=== PATIENT | male | born 1940 | race Caucasian/White ===

== ENCOUNTER 2016-07-20 10:31 | Inpatient (IN) | payer MEDICARE, OTHER ==
[2016-07-20] MEDS ORDERED: Triamcinolone Acetonide 0.1% Crm 15 GM Tube TOP PRN (15:42)
[2016-07-20] MEDS ORDERED: Ondansetron 4 MG Tab.DIS PO PRN (15:49)
--- NOTE | 2016-07-20 16:00 | PCM.HP ---
H&P History of Present Illness - General Date of Service: 07/20/16 Admit Problem/Dx: Admission Diagnosis/Problem Admission Diagnosis/Problem Weakness the patient is a 75-year-old gentleman with a history of diabetes, BPH, hypertension. The patient was diagnosed with lumbar disc disease with radiculopathy on 14 July the patient underwent a L3-S1 spinal fusion surgery in [place]. Date patients a postoperative wound recovery was complicated repeat dose of the balls that responded to lactulose. Had urinary retention. Had confusion with pain medications. He was in acute care and then switched to swing bed. The patient wanted to get closer to her he is home and was transferred to [facility] to continue swing bed recovery. He has moderate pain in the back is improving in the past 2 days. There is no associated lower extremity weakness or numbness. No fever or chills, no shortness of breath, or chest pain Source of Information: Patient, Family (), Old Records (from [place]) Lower Back Pain Score (Numeric/FACES): 5 - Related Data Allergies/Adverse Reactions: Allergies Allergy/AdvReac Type Severity Reaction Status Date / Time aspirin Allergy Rash Verified 04/10/15 22:25 atorvastatin [From Lipitor] Allergy Joint Pain Verified 07/20/16 12:40 bacitracin [From Polysporin] Allergy Cannot Verified 04/10/15 22:25 Remember polymyxin B sulfate Allergy Cannot Verified 04/10/15 22:25 [From Polysporin] Remember salicylates Allergy Rash Verified 07/20/16 12:40 calcium containing cmpd Allergy Cannot Uncoded 03/08/15 04:01 Remember Home Medications: Home Meds Aspirin [Ecotrin] 81 mg PO DAILY 09/19/13 [History] Hydroxychloroquine Sulfate [Plaquenil] 200 mg PO DAILY 09/19/13 [History] Insulin Glarg,Human.Rec.Analog [Lantus Solostar] 22 units SQ BEDTIME 09/19/13 [ History] Niacin 500 mg PO BEDTIME 09/19/13 [History] Simvastatin [Zocor] 20 mg PO BEDTIME 09/19/13 [History] Tamsulosin HCl 0.8 mg PO BEDTIME 09/19/13 [History] traZODone 50 mg PO BEDTIME 09/19/13 [History] Calcitriol [Rocaltrol] 0.25 mcg PO .MO.TUE.Tue03/11/15 [History] Insulin Aspart [Novolog Flexpen] 10 unit SQ ACBREAKFAST 03/11/15 [History] Metoprolol Tartrate 25 mg PO BID 03/11/15 [History] Omeprazole 40 mg PO ACBREAKFAST 03/11/15 [History] hydrOXYzine HCl [Atarax] 25 mg PO BEDTIME 03/11/15 [History] Acetaminophen/Diphenhydramine [Tylenol Pm Ex-Strength Caplet] 1 tab PO BEDTIME PRN 07/20/16 [History] Acetaminophen/HYDROcodone [[place] 325-5 MG] 0.5 tab PO Q6H PRN 07/20/16 [History] Cyclobenzaprine [Flexeril] 10 mg PO BID PRN 07/20/16 [History] Finasteride [Proscar] 5 mg PO DAILY 07/20/16 [History] Insulin Aspart [NovoLOG] 15 units SUBCUT ASDIRECTED 07/20/16 [History] Lactulose 30 ml PO DAILY PRN 07/20/16 [History] Moexipril/Hydrochlorothiazide [Moexipril-HCTZ 15-12.5 MG] 1 tab PO DAILY [History] Sennosides/Docusate Sodium [Senokot-S Tablet] 1 tab PO BID 07/20/16 [History] Triamcinolone Acetonide [Triamcinolone Acetonide 0.1% Crm] 1 applic TOP TID PRN 07/20/16 [History] Past Medical History HEENT History: Reports: Cataract, Impaired Vision Cardiovascular History: Reports: High Cholesterol, Hypertension Respiratory History: Reports: Bronchitis, Recurrent Gastrointestinal History: Reports: Diverticulosis, GERD, Hemorrhoids Genitourinary History: Reports: BPH, Renal Disease Other Genitourinary History: chronic renal insufficiency Musculoskeletal History: Reports: Back Pain, Chronic, Fracture Other Musculoskeletal History: left radius and ulna Psychiatric History: Reports: Addiction Other Psychiatric History: past history of etoh abuse Endocrine/Metabolic History: Reports: Diabetes, Type II Dermatologic History: Reports: Other (See Below) Other Dermatologic History: precancerous lesions to face - Infectious Disease History Infectious Disease History: Reports: Chicken Pox, Measles - Past Surgical History HEENT Surgical History: Reports: Cataract Surgery, Tonsillectomy GI Surgical History: Reports: Appendectomy, Colonoscopy Neurological Surgical History: Reports: Laminectomy, Spinal Fusion Musculoskeletal Surgical History: Reports: Carpal Tunnel, Shoulder Replacement, Other (See Below) Other Musculoskeletal Surgeries/Procedures:: back surgery Social & Family History - Family History Family Medical History: Noncontributory - Tobacco Use Smoking Status *Q: Former Smoker Years of Tobacco use: 52 Packs/Tins Daily: 2 Used Tobacco, but Quit: Yes Month Tobacco Last Used: 10 years ago - Caffeine Use Caffeine Use: Reports: Coffee - Alcohol Use Days Per Week of Alcohol Use: 0 - Recreational Drug Use Recreational Drug Use: No Drug Use in Last 12 Months: No H&P Review of Systems - Review of Systems: Review Of Systems: See Below General: Denies: Fever, Chills, Diaphoresis Pulmonary: Denies: Shortness of Breath Cardiovascular: Denies: Chest Pain Gastrointestinal: Denies: Abdominal Pain Musculoskeletal: Reports: Back Pain. Denies: Neck Pain Psychiatric: Denies: Confusion Exam - Exam Exam: See Below - Vital Signs Vital Signs: Last Vital Signs Temp 36.2 C 07/20/16 14:56 Pulse 103 H 07/20/16 14:56 Resp 20 07/20/16 14:56 BP 137/85 07/20/16 14:56 Pulse Ox 96 07/20/16 14:56 Weight: 84.912 kg - Exam General: Alert, Oriented Neck: Supple, Trachea Midline, 2 Lungs: Clear to Auscultation Cardiovascular: Regular Rate, Regular Rhythm Abdomen: Normal Bowel Sounds, Soft Back Exam: Other (with the back brace) Extremities: No: Edema Neuro Extensive - Mental Status: Alert, Oriented x3, Normal Mood/Affect, Normal Cognition *Q Meaningful Use (ADM) - VTE *Q VTE Criteria *Q: - Stroke *Q Stroke Criteria *Q: - AMI *Q AMI Criteria *Q: Problem List Initiated/Reviewed/Updated: Yes Orders Last 24hrs: Active Orders 24 hr Category Date Time Status Antiembolic Devices [RC] PER UNIT ROUTINE Care 07/20/16 15:53 Ordered Blood Glucose Check, Bedside [RC] QIDACANDBED Care 07/20/16 15:49 Ordered Oxygen Therapy [RC] PRN Care 07/20/16 15:51 Ordered Up With Assistance [RC] ASDIRECTED Care 07/20/16 15:49 Ordered VTE/DVT Education [RC] PER UNIT ROUTINE Care 07/20/16 15:51 Ordered Vital Signs [RC] QSHIFT Care 07/20/16 15:51 Ordered OT Evaluation and Treatment [CONS] Routine Cons 07/20/16 15:49 Ordered PT Evaluation and Treatment [CONS] Routine Cons 07/20/16 15:49 Ordered Consistent Carbohydrate Diet [DIET] Diet 07/20/16 Dinner Ordered Acetaminophen [Tylenol] Med 07/20/16 15:49 Ordered 650 mg PO Q4H PRN Acetaminophen/HYDROcodone [[place] 325-5 MG] Med 07/20/16 15:42 Ordered 0.5 tab PO Q6H PRN Aspirin [Halfprin] Med 07/21/16 09:00 Ordered 81 mg PO DAILY Calcitriol [Rocaltrol] Med 07/20/16 15:45 Ordered 0.25 mcg PO .MO. Cyclobenzaprine [Flexeril] Med 07/20/16 15:42 Ordered 10 mg PO BID PRN Docusate Sodium/Sennosides [Senna Plus] Med 07/20/16 21:00 Ordered 1 tab PO BID Finasteride [Proscar] Med 07/21/16 09:00 Ordered 5 mg PO DAILY Heparin Sodium Med 07/20/16 22:00 Ordered 5,000 units SUBCUT Q8HR Hydroxychloroquine [Plaquenil] Med 07/21/16 09:00 Ordered 200 mg PO DAILY Insulin Aspart [NovoLOG] Med 07/21/16 06:00 Ordered 10 unit SUBCUT ACBREAKFAST Insulin Aspart [NovoLOG] Med 07/20/16 15:45 Ordered 15 unit SUBCUT ASDIRECTED Insulin Aspart [NovoLOG] Med 07/20/16 17:00 Ordered See Protocol SUBCUT TIDAC Insulin Glarg,Human.Rec.Analog [Lantus Solostar] Med 07/20/16 21:00 Ordered 22 units SQ BEDTIME Lactulose [Lactulose] Med 07/20/16 15:42 Ordered 30 ml PO DAILY PRN Metoprolol Tartrate [Lopressor] Med 07/20/16 21:00 Ordered 25 mg PO BID Moexipril/Hydrochlorothiazide [Moexipril-HCTZ 15-12.5 Med 07/21/16 09:00 Ordered MG] 1 tab PO DAILY Niacin [Niacin] Med 07/20/16 21:00 Ordered 500 mg PO BEDTIME Omeprazole Med 07/21/16 06:00 Ordered 40 mg PO ACBREAKFAST Ondansetron [Zofran ODT] Med 07/20/16 15:49 Ordered 4 mg PO Q6H PRN Simvastatin [Zocor] Med 07/20/16 21:00 Ordered 20 mg PO BEDTIME Tamsulosin [Flomax] Med 07/20/16 21:00 Ordered 0.8 mg PO BEDTIME Triamcinolone Acetonide [Triamcinolone Acetonide 0.1% Med 07/20/16 15:42 Ordered Crm] 1 applic TOP TID PRN hydrOXYzine HCl [Atarax] Med 07/20/16 21:00 Ordered 25 mg PO BEDTIME traZODone [traZODone] Med 07/20/16 21:00 Ordered 50 mg PO BEDTIME Antiembolic Hose [OM.PC] Per Unit Routine Oth 07/20/16 15:52 Ordered Resuscitation Status Routine Resus Stat 07/20/16 15:49 Ordered Medication Orders Acetaminophen (Tylenol) 650 mg PO Q4H PRN PRN Reason: Pain (Mild 1-3)/fever Hydrocodone Bitart/Acetaminophen ([place] 325-5 Mg) 0.5 tab PO Q6H PRN PRN Reason: Pain (severe 7-10) Aspirin (Halfprin) 81 mg PO DAILY [facility] Calcitriol (Rocaltrol) 0.25 mcg PO .MO. [facility] Cyclobenzaprine HCl (Flexeril) 10 mg PO BID PRN PRN Reason: Pain Finasteride (Proscar) 5 mg PO DAILY [facility] Heparin Sodium (Porcine) (Heparin Sodium) 5,000 units SUBCUT Q8HR [facility] Hydroxychloroquine Sulfate (Plaquenil) 200 mg PO DAILY [facility] Hydroxyzine HCl (Atarax) 25 mg PO BEDTIME [facility] Insulin Aspart (Novolog) 10 unit SUBCUT ACBREAKFAST [facility] Insulin Aspart (Novolog) 15 unit SUBCUT ASDIRECTED [facility] Insulin Aspart (Novolog) 0 unit SUBCUT TIDAC [facility] PRN Reason: Protocol Metoprolol Tartrate (Lopressor) 25 mg PO BID [facility] Non-Formulary Medication (Insulin Glarg,Human.Rec.Analog [Lantus Solostar]) 22 units SQ BEDTIME [facility] Non-Formulary Medication (Lactulose [Lactulose]) 30 ml PO DAILY PRN PRN Reason: Constipation Non-Formulary Medication (Moexipril/Hydrochlorothiazide [Moexipril-Hctz 15-12.5 Mg]) 1 tab PO DAILY [facility] Non-Formulary Medication (Niacin [Niacin]) 500 mg PO BEDTIME [facility] Non-Formulary Medication (Simvastatin [Zocor]) 20 mg PO BEDTIME [facility] Non-Formulary Medication (Trazodone [Trazodone]) 50 mg PO BEDTIME [facility] Omeprazole (Omeprazole) 40 mg PO ACBREAKFAST [facility] Ondansetron HCl (Zofran Odt) 4 mg PO Q6H PRN PRN Reason: nausea, able to take PO Senna/Docusate Sodium (Senna Plus) 1 tab PO BID [facility] Tamsulosin HCl (Flomax) 0.8 mg PO BEDTIME [facility] Triamcinolone Acetonide (Triamcinolone Acetonide 0.1% Crm) gm TOP TID PRN PRN Reason: Itching Assessment/Plan Comment:: status post l3-S1 vertebral fusion surgery on 14 July Will have physical therapy and occupational therapy follow the patient DVT prophylaxis Will use subcutaneous heparin Diabetes Continue Lantus and short-acting insulin Use supplemental insulin as needed Hypertension Continue LING inhibitor and hydrochlorothiazide Follow for constipation, encephalopathy from narcotics. Will obtain basic metabolic panel and CBC as baseline tomorrow
[2016-07-20] MEDS ORDERED: Insulin Aspart 100 Units/ML 3 ML Pen SUBCUT SCH (17:00)
[2016-07-20] MEDS: Insulin Aspart 100 Units/ML 3 ML Pen SUBCUT SCH (17:15)
[2016-07-20] MEDS: Acetaminophen 325 MG Tab PO PRN (18:03)
[2016-07-20] MEDS: Tamsulosin 0.4 MG Cap.ER PO SCH (22:02)
[2016-07-20] MEDS: hydrOXYzine HCl 25 MG Tab PO SCH (22:02)
[2016-07-20] MEDS: INSULIN GLARG HUMAN REC ANALOG SUBCUT SCH (22:03)
[2016-07-20] MEDS: traZODone 50 MG Tab PO SCH (22:05)
[2016-07-20] MEDS: Simvastatin 10 MG Tab PO SCH (22:06)
[2016-07-20] MEDS: Heparin Sodium 5,000 Units/ML Vial SUBCUT SCH (22:07)
[2016-07-20] MEDS: Cyclobenzaprine 10 MG Tab PO PRN (22:07)
[2016-07-20] MEDS: Metoprolol Tartrate 25 MG Tab PO SCH (23:10)
[2016-07-20] MEDS: Niacin 500 MG Tab.ER PO SCH (23:11)
[2016-07-21] MEDS: Acetaminophen 325 MG Tab PO PRN ×3 (00:55→21:46)
[2016-07-21] MEDS: Acetaminophen/HYDROcodone 325-5 MG Tab PO PRN (03:00)
[2016-07-21] MEDS: Omeprazole 20 MG Cap.CR PO SCH (05:27)
[2016-07-21] MEDS: Heparin Sodium 5,000 Units/ML Vial SUBCUT SCH ×3 (05:27→21:45)
[2016-07-21] MEDS: Insulin Aspart 100 Units/ML 3 ML Pen SUBCUT SCH ×6 (08:56→18:17)
[2016-07-21] MEDS ORDERED: HYDROCHLOROTHIAZIDE PO SCH (09:00)
[2016-07-21] MEDS: Finasteride 5 MG Tab PO SCH (09:00)
[2016-07-21] MEDS: Calcitriol 0.25 MCG Cap PO SCH (09:00)
[2016-07-21] MEDS: Hydroxychloroquine 200 MG Tab PO SCH (09:00)
[2016-07-21] MEDS: Aspirin 81 MG Tab.EC PO SCH (09:00)
[2016-07-21] MEDS ORDERED: MOEXIPRIL PO SCH (09:00)
[2016-07-21] MEDS: Metoprolol Tartrate 25 MG Tab PO SCH ×2 (09:00→21:41)
[2016-07-21] MEDS ORDERED: [UNRECOGNIZED DRUG - OTHER] PO SCH (09:00)
[2016-07-21] MEDS: hydrOXYzine HCl 25 MG Tab PO SCH (21:41)
[2016-07-21] MEDS: Tamsulosin 0.4 MG Cap.ER PO SCH (21:41)
[2016-07-21] MEDS: traZODone 50 MG Tab PO SCH (21:42)
[2016-07-21] MEDS: Simvastatin 10 MG Tab PO SCH (21:43)
[2016-07-21] MEDS: Niacin 500 MG Tab.ER PO SCH (21:44)
[2016-07-21] MEDS: Lactulose Soln 10 GM/15 ML 30 ML UD Cup PO PRN (21:45)
[2016-07-21] MEDS: Cyclobenzaprine 10 MG Tab PO PRN (21:46)
[2016-07-21] MEDS: INSULIN GLARG HUMAN REC ANALOG SUBCUT SCH (22:04)
[2016-07-22] MEDS: Acetaminophen/HYDROcodone 325-5 MG Tab PO PRN ×3 (00:22→20:08)
[2016-07-22] MEDS: Acetaminophen 325 MG Tab PO PRN ×2 (02:14→21:48)
[2016-07-22] MEDS: Omeprazole 20 MG Cap.CR PO SCH (05:12)
[2016-07-22] MEDS: Heparin Sodium 5,000 Units/ML Vial SUBCUT SCH ×3 (05:12→21:49)
[2016-07-22] MEDS: Metoprolol Tartrate 25 MG Tab PO SCH ×2 (08:09→20:04)
[2016-07-22] MEDS: Finasteride 5 MG Tab PO SCH (08:09)
[2016-07-22] MEDS: Aspirin 81 MG Tab.EC PO SCH (08:09)
[2016-07-22] MEDS: Hydroxychloroquine 200 MG Tab PO SCH (08:09)
[2016-07-22] MEDS: Insulin Aspart 100 Units/ML 3 ML Pen SUBCUT SCH ×7 (08:13→19:01)
[2016-07-22] MEDS: hydrOXYzine HCl 25 MG Tab PO SCH (20:02)
[2016-07-22] MEDS: Simvastatin 10 MG Tab PO SCH (20:03)
[2016-07-22] MEDS: Tamsulosin 0.4 MG Cap.ER PO SCH (20:03)
[2016-07-22] MEDS: traZODone 50 MG Tab PO SCH (20:03)
[2016-07-22] MEDS: Niacin 500 MG Tab.ER PO SCH (20:21)
[2016-07-22] MEDS: INSULIN GLARG HUMAN REC ANALOG SUBCUT SCH (21:53)
[2016-07-22] MEDS: Cyclobenzaprine 10 MG Tab PO PRN (23:57)
[2016-07-23] MEDS: Acetaminophen/HYDROcodone 325-5 MG Tab PO PRN ×4 (02:09→18:33)
[2016-07-23] MEDS: Acetaminophen 325 MG Tab PO PRN ×4 (05:45→22:40)
[2016-07-23] MEDS: Heparin Sodium 5,000 Units/ML Vial SUBCUT SCH ×3 (05:48→21:35)
[2016-07-23] MEDS: Omeprazole 20 MG Cap.CR PO SCH (05:48)
[2016-07-23] MEDS: Insulin Aspart 100 Units/ML 3 ML Pen SUBCUT SCH ×3 (08:32→17:25)
[2016-07-23] MEDS: Metoprolol Tartrate 25 MG Tab PO SCH ×2 (09:24→20:21)
[2016-07-23] MEDS: Cyclobenzaprine 10 MG Tab PO PRN ×2 (09:24→21:39)
[2016-07-23] MEDS: Hydroxychloroquine 200 MG Tab PO SCH (09:24)
[2016-07-23] MEDS: Calcitriol 0.25 MCG Cap PO SCH (09:24)
[2016-07-23] MEDS: Finasteride 5 MG Tab PO SCH (09:24)
[2016-07-23] MEDS: Aspirin 81 MG Tab.EC PO SCH (09:25)
[2016-07-23] MEDS ORDERED: Acetaminophen/HYDROcodone 325-5 MG Tab PO PRN (16:32)
[2016-07-23] MEDS: traZODone 50 MG Tab PO SCH (20:21)
[2016-07-23] MEDS: Simvastatin 10 MG Tab PO SCH (20:21)
[2016-07-23] MEDS: Tamsulosin 0.4 MG Cap.ER PO SCH (20:21)
[2016-07-23] MEDS: Niacin 500 MG Tab.ER PO SCH (20:22)
[2016-07-23] MEDS: hydrOXYzine HCl 25 MG Tab PO SCH (20:23)
[2016-07-23] MEDS: TYLENOL PM PO PRN (20:23)
[2016-07-23] MEDS: Lactulose Soln 10 GM/15 ML 30 ML UD Cup PO PRN (20:23)
[2016-07-23] MEDS: INSULIN GLARG HUMAN REC ANALOG SUBCUT SCH (21:34)
[2016-07-24] MEDS: Acetaminophen/HYDROcodone 325-5 MG Tab PO PRN ×2 (00:36→06:43)
[2016-07-24] MEDS: Omeprazole 20 MG Cap.CR PO SCH (06:07)
[2016-07-24] MEDS: Heparin Sodium 5,000 Units/ML Vial SUBCUT SCH ×3 (06:07→22:34)
[2016-07-24] MEDS: Metoprolol Tartrate 25 MG Tab PO SCH ×2 (08:09→20:43)
[2016-07-24] MEDS: Finasteride 5 MG Tab PO SCH (08:09)
[2016-07-24] MEDS: Insulin Aspart 100 Units/ML 3 ML Pen SUBCUT SCH ×5 (08:09→17:27)
[2016-07-24] MEDS: Aspirin 81 MG Tab.EC PO SCH (08:09)
[2016-07-24] MEDS: Hydroxychloroquine 200 MG Tab PO SCH (08:09)
[2016-07-24] MEDS: Lidocaine 5% 700 MG Patch TOP SCH (09:20)
[2016-07-24] MEDS: Tamsulosin 0.4 MG Cap.ER PO SCH (20:42)
[2016-07-24] MEDS: hydrOXYzine HCl 25 MG Tab PO SCH (20:42)
[2016-07-24] MEDS: Niacin 500 MG Tab.ER PO SCH (20:44)
[2016-07-24] MEDS: traZODone 50 MG Tab PO SCH (20:45)
[2016-07-24] MEDS: Simvastatin 10 MG Tab PO SCH (20:45)
[2016-07-24] MEDS: Cyclobenzaprine 10 MG Tab PO PRN (20:46)
[2016-07-24] MEDS: TYLENOL PM PO PRN (20:46)
[2016-07-24] MEDS: INSULIN GLARG HUMAN REC ANALOG SUBCUT SCH (20:48)
[2016-07-24] MEDS: Menthol/Methyl Salicylate 85 GM Tube TOP PRN (22:34)
[2016-07-25] MEDS: Acetaminophen 325 MG Tab PO PRN ×4 (04:18→21:59)
[2016-07-25] MEDS: Lactulose Soln 10 GM/15 ML 30 ML UD Cup PO PRN (05:35)
[2016-07-25] MEDS: Omeprazole 20 MG Cap.CR PO SCH (05:35)
[2016-07-25] MEDS: Heparin Sodium 5,000 Units/ML Vial SUBCUT SCH ×3 (05:35→21:53)
[2016-07-25] MEDS ORDERED: Bisacodyl 10 MG Supp RECTAL ONE (08:07)
[2016-07-25] MEDS: Insulin Aspart 100 Units/ML 3 ML Pen SUBCUT SCH ×6 (08:58→17:51)
[2016-07-25] MEDS: Aspirin 81 MG Tab.EC PO SCH (09:01)
[2016-07-25] MEDS: Finasteride 5 MG Tab PO SCH (09:01)
[2016-07-25] MEDS: Lidocaine 5% 700 MG Patch TOP SCH (09:02)
[2016-07-25] MEDS: Metoprolol Tartrate 25 MG Tab PO SCH ×2 (09:02→21:47)
[2016-07-25] MEDS: Hydroxychloroquine 200 MG Tab PO SCH (09:03)
[2016-07-25] MEDS: Cyclobenzaprine 10 MG Tab PO PRN ×2 (12:22→21:59)
[2016-07-25] MEDS: Tamsulosin 0.4 MG Cap.ER PO SCH (21:46)
[2016-07-25] MEDS: traZODone 50 MG Tab PO SCH (21:47)
[2016-07-25] MEDS: Simvastatin 10 MG Tab PO SCH (21:47)
[2016-07-25] MEDS: hydrOXYzine HCl 25 MG Tab PO SCH (21:47)
[2016-07-25] MEDS: Niacin 500 MG Tab.ER PO SCH (21:50)
[2016-07-25] MEDS: INSULIN GLARG HUMAN REC ANALOG SUBCUT SCH (21:50)
[2016-07-25] MEDS: Menthol/Methyl Salicylate 85 GM Tube TOP PRN (22:02)
[2016-07-26] MEDS: TYLENOL PM PO PRN ×2 (00:59→21:43)
[2016-07-26] MEDS: Acetaminophen 325 MG Tab PO PRN (05:09)
[2016-07-26] MEDS: Omeprazole 20 MG Cap.CR PO SCH (05:09)
[2016-07-26] MEDS: Heparin Sodium 5,000 Units/ML Vial SUBCUT SCH ×3 (05:11→21:32)
--- NOTE | 2016-07-26 07:14 | PN ---
DATE: 07/25/2016 SUBJECTIVE: The patient was confused last night and the patient also mentioned that he has not had any bowel movement for the last 4 days. But so far, the patient has been doing well with pain management and the Lidoderm patch seems to be helping and he did not get any hydrocodone yesterday. Otherwise, no other concerns. OBJECTIVE: Vital Signs: Blood pressure is 142/70, pulse is 105, respiration of 20, and temperature of 98.2. Heart: Regular rate and rhythm. Normal S1 and S2. No gallops. No rubs. Lungs: Equal bilaterally. No crackles. No wheezing. Abdomen: Soft and nontender. Extremities: Negative for any significant pedal edema. No calf tenderness. MEDICATIONS: Reviewed. PLAN: We will give him Dulcolax suppository today x1 and if he does not have any bowel movement, then, we will give soapsuds enema. Otherwise, we will continue the rest of his management and if he has a good bowel movement, we can even try him without a Andrews catheter and see if he can urinate on his own. [facility] /[id number]
[2016-07-26] MEDS: Insulin Aspart 100 Units/ML 3 ML Pen SUBCUT SCH ×6 (08:36→17:35)
[2016-07-26] MEDS: Aspirin 81 MG Tab.EC PO SCH (10:04)
[2016-07-26] MEDS: Lidocaine 5% 700 MG Patch TOP SCH (10:04)
[2016-07-26] MEDS: Metoprolol Tartrate 25 MG Tab PO SCH ×2 (10:05→21:49)
[2016-07-26] MEDS: Finasteride 5 MG Tab PO SCH (10:06)
[2016-07-26] MEDS: Hydroxychloroquine 200 MG Tab PO SCH (10:06)
[2016-07-26] MEDS: Calcitriol 0.25 MCG Cap PO SCH (10:06)
[2016-07-26] MEDS: INSULIN GLARG HUMAN REC ANALOG SUBCUT SCH (21:32)
[2016-07-26] MEDS: Menthol/Methyl Salicylate 85 GM Tube TOP PRN (21:34)
[2016-07-26] MEDS: hydrOXYzine HCl 25 MG Tab PO SCH (21:44)
[2016-07-26] MEDS: Niacin 500 MG Tab.ER PO SCH (21:45)
[2016-07-26] MEDS: traZODone 50 MG Tab PO SCH (21:46)
[2016-07-26] MEDS: Tamsulosin 0.4 MG Cap.ER PO SCH (21:46)
[2016-07-26] MEDS: Simvastatin 10 MG Tab PO SCH (21:47)
[2016-07-26] MEDS: Cyclobenzaprine 10 MG Tab PO PRN (21:49)
[2016-07-27] MEDS: Acetaminophen 325 MG Tab PO PRN (03:10)
[2016-07-27] MEDS: Heparin Sodium 5,000 Units/ML Vial SUBCUT SCH ×3 (05:39→21:38)
[2016-07-27] MEDS: Omeprazole 20 MG Cap.CR PO SCH (05:39)
[2016-07-27] MEDS: Insulin Aspart 100 Units/ML 3 ML Pen SUBCUT SCH ×6 (08:16→17:55)
[2016-07-27] MEDS: Aspirin 81 MG Tab.EC PO SCH (08:19)
[2016-07-27] MEDS: Metoprolol Tartrate 25 MG Tab PO SCH ×2 (08:20→20:29)
[2016-07-27] MEDS: Hydroxychloroquine 200 MG Tab PO SCH (08:20)
[2016-07-27] MEDS: Lidocaine 5% 700 MG Patch TOP SCH (08:21)
[2016-07-27] MEDS: Finasteride 5 MG Tab PO SCH (08:21)
[2016-07-27] MEDS: Lactulose Soln 10 GM/15 ML 30 ML UD Cup PO PRN (08:34)
[2016-07-27] MEDS ORDERED: Zolpidem 5 MG Tab PO PRN (15:28)
[2016-07-27] MEDS ORDERED: LORazepam 0.5 MG Tab PO PRN (15:34)
[2016-07-27] MEDS: Tamsulosin 0.4 MG Cap.ER PO SCH (20:28)
[2016-07-27] MEDS: hydrOXYzine HCl 25 MG Tab PO SCH (20:28)
[2016-07-27] MEDS: Niacin 500 MG Tab.ER PO SCH (20:30)
[2016-07-27] MEDS: traZODone 50 MG Tab PO SCH (20:33)
[2016-07-27] MEDS: Simvastatin 10 MG Tab PO SCH (20:33)
[2016-07-27] MEDS ORDERED: Insulin Detemir 100 Units/ML 3 ML Pen SUBCUT ONE (21:15)
[2016-07-27] MEDS: INSULIN GLARG HUMAN REC ANALOG SUBCUT SCH (21:36)
[2016-07-28] MEDS: Heparin Sodium 5,000 Units/ML Vial SUBCUT SCH ×3 (05:53→21:43)
[2016-07-28] MEDS: Omeprazole 20 MG Cap.CR PO SCH (05:53)
[2016-07-28] MEDS: Insulin Aspart 100 Units/ML 3 ML Pen SUBCUT SCH ×6 (08:16→17:29)
[2016-07-28] MEDS: Aspirin 81 MG Tab.EC PO SCH (08:19)
[2016-07-28] MEDS: Finasteride 5 MG Tab PO SCH (08:19)
[2016-07-28] MEDS: Hydroxychloroquine 200 MG Tab PO SCH (08:20)
[2016-07-28] MEDS: Calcitriol 0.25 MCG Cap PO SCH (08:20)
[2016-07-28] MEDS: Metoprolol Tartrate 25 MG Tab PO SCH ×2 (08:21→20:49)
[2016-07-28] MEDS: Lidocaine 5% 700 MG Patch TOP SCH (08:21)
[2016-07-28] MEDS ORDERED: LORazepam 1 MG Tab PO PRN (09:16)
[2016-07-28] MEDS: Acetaminophen 325 MG Tab PO PRN ×2 (10:44→20:48)
--- NOTE | 2016-07-28 11:11 | PCM.PN ---
- General Info Date of Service: 07/28/16 Subjective Update: patient is a 75-year-old male was admitted for continued physical therapy after back surgery. Has had urinary retention and admission. They have tried removing the Andrews catheter however, he was noted to have her on 500-600 mL of urine retained. Hands Andrews catheter was inserted again. Yesterday, urine for catheter was noted to be very dark and a urinalysis was done which showed more than 100 RBCs. Unclear if patient accidentally pulled the catheter. - Patient Data Vitals - most recent: Last Vital Signs Temp 36.9 C 07/28/16 08:00 Pulse 109 H 07/28/16 08:21 Resp 24 H 07/28/16 08:00 BP 136/63 07/28/16 08:21 Pulse Ox 109 H 07/28/16 08:00 Weight - most recent: 84.912 kg I&O - last 24 hours: Intake & Output 07/27/16 07/28/16 07/28/16 22:59 06:59 14:59 Intake Total 200 100 Output Total 500 550 Balance -300 -450 Lab Results last 24 hrs: Laboratory Results - last 24 hr 07/27/16 07/27/16 07/27/16 Range/Units 11:23 13:35 16:53 POC Glucose 336 H 199 H (83-110) mg/dl Urine Color Itzel (YELLOW) Urine Appearance Turbid (CLEAR) Urine pH 6.0 (5.0-9.0) Ur Specific [place] 1.020 (1.005-1.030) Urine Protein 100 H (NEGATIVE) Urine Glucose (UA) 100 H (NEGATIVE) Urine Ketones Trace H (NEGATIVE) Urine Occult Blood Large H (NEGATIVE) Urine Nitrite Negative (NEGATIVE) Urine Bilirubin Small H (NEGATIVE) Urine Urobilinogen 0.2 (0.2-1.0) mg/dL Ur Leukocyte Esterase Trace H (NEGATIVE) Urine RBC >100 H /HPF Urine WBC 10-20 H (0-5/HPF) /HPF Ur Epithelial Cells Rare /HPF Amorphous Sediment Few (0/HPF) /HPF Urine Bacteria Rare (0-FEW/HPF) /HPF Urine Mucus Rare /LPF 07/27/16 07/28/16 Range/Units 20:59 07:02 POC Glucose 215 H 240 H (83-110) mg/dl Urine Color (YELLOW) Urine Appearance (CLEAR) Urine pH (5.0-9.0) Ur Specific [place] (1.005-1.030) Urine Protein (NEGATIVE) Urine Glucose (UA) (NEGATIVE) Urine Ketones (NEGATIVE) Urine Occult Blood (NEGATIVE) Urine Nitrite (NEGATIVE) Urine Bilirubin (NEGATIVE) Urine Urobilinogen (0.2-1.0) mg/dL Ur Leukocyte Esterase (NEGATIVE) Urine RBC /HPF Urine WBC (0-5/HPF) /HPF Ur Epithelial Cells /HPF Amorphous Sediment (0/HPF) /HPF Urine Bacteria (0-FEW/HPF) /HPF Urine Mucus /LPF Med Orders - Current: Current Medications Acetaminophen (Tylenol) 650 mg PO Q4H PRN PRN Reason: Pain (Mild 1-3)/fever Last Admin: 07/28/16 10:44 Dose: 650 mg Aspirin (Halfprin) 81 mg PO DAILY [facility] Last Admin: 07/28/16 08:19 Dose: 81 mg Calcitriol (Rocaltrol) 0.25 mcg PO MoWeFr@0900 [facility] Last Admin: 07/28/16 08:20 Dose: 0.25 mcg Cyclobenzaprine HCl (Flexeril) 10 mg PO BID PRN PRN Reason: Pain Last Admin: 07/26/16 21:49 Dose: 10 mg Finasteride (Proscar) 5 mg PO DAILY [facility] Last Admin: 07/28/16 08:19 Dose: 5 mg Heparin Sodium (Porcine) (Heparin Sodium) 5,000 units SUBCUT Q8HR [facility] Last Admin: 07/28/16 05:53 Dose: 5,000 units Hydroxychloroquine Sulfate (Plaquenil) 200 mg PO DAILY [facility] Last Admin: 07/28/16 08:20 Dose: 200 mg Insulin Aspart (Novolog) 5 unit SUBCUT TIDMEALS [facility] Last Admin: 07/28/16 08:16 Dose: 5 unit Insulin Aspart (Novolog) 0 unit SUBCUT TIDMEALS [facility] PRN Reason: Protocol Last Admin: 07/28/16 08:18 Dose: 4 unit Lactulose (Cephulac) 20 gm PO DAILY PRN PRN Reason: Constipation Last Admin: 07/27/16 08:34 Dose: 20 gm Lidocaine (Lidoderm 5%) 700 mg TOP DAILY@0900 [facility] Last Admin: 07/28/16 08:21 Dose: 700 mg Lorazepam (Ativan) 1 mg PO BEDTIME PRN PRN Reason: Insomnia Methyl Salicylate (Icy Hot Cream) 0 gm TOP Q3H PRN PRN Reason: Pain Last Admin: 07/26/16 21:34 Dose: 1 applic Metoprolol Tartrate (Lopressor) 25 mg PO BID [facility] Last Admin: 07/28/16 08:21 Dose: 25 mg Miscellaneous Information (Remove Patch) 1 ea TRDERM DAILY@2100 [facility] Last Admin: 07/27/16 20:32 Dose: Not Given Niacin (Niaspan) 500 mg PO BEDTIME [facility] Last Admin: 07/27/16 20:30 Dose: 500 mg Omeprazole (Omeprazole) 40 mg PO ACBREAKFAST [facility] Last Admin: 07/28/16 05:53 Dose: 40 mg Ondansetron HCl (Zofran Odt) 4 mg PO Q6H PRN PRN Reason: nausea, able to take PO Insulin Glarg,Human. Rec.Analog [Lantus Solostar]Pt's Own Med 0 each SUBCUT BEDTIME [facility] Last Admin: 07/27/16 21:36 Dose: 19 each Tylenol Pm ( Acetaminophen 500/Diphenhydramine 25) Own Med 0 each PO BEDTIME PRN PRN Reason: Sleep Last Admin: 07/26/16 21:43 Dose: 1 each Senna/Docusate Sodium (Senna Plus) 1 tab PO BID [facility] Last Admin: 07/28/16 08:20 Dose: 1 tab Simvastatin (Zocor) 20 mg PO BEDTIME [facility] Last Admin: 07/27/16 20:33 Dose: 20 mg Tamsulosin HCl (Flomax) 0.8 mg PO BEDTIME [facility] Last Admin: 07/27/16 20:28 Dose: 0.8 mg Trazodone HCl (Trazodone) 50 mg PO BEDTIME [facility] Last Admin: 07/27/16 20:33 Dose: 50 mg Triamcinolone Acetonide (Triamcinolone Acetonide 0.1% Crm) 0 gm TOP TID PRN PRN Reason: Itching Discontinued Medications Hydrocodone Bitart/Acetaminophen ([place] 325-5 Mg) 0.5 tab PO Q6H PRN PRN Reason: Pain (severe 7-10) Last Admin: 07/23/16 02:09 Dose: 0.5 tab Hydrocodone Bitart/Acetaminophen ([place] 325-5 Mg) 1 tab PO Q6H PRN PRN Reason: Pain (severe 7-10) Last Admin: 07/24/16 06:43 Dose: 1 tab Hydrocodone Bitart/Acetaminophen ([place] 325-5 Mg) 0.5 tab PO Q6H PRN PRN Reason: Pain (moderate 4-6) Bisacodyl (Dulcolax) 10 mg RECTAL ONETIME ONE Stop: 07/25/16 08:08 Last Admin: 07/25/16 08:57 Dose: 10 mg Hydroxyzine HCl (Atarax) 25 mg PO BEDTIME [facility] Last Admin: 07/27/16 20:28 Dose: 25 mg Insulin Aspart (Novolog) 10 unit SUBCUT DAILY@0800 [facility] Last Admin: 07/22/16 08:14 Dose: 10 units Insulin Aspart (Novolog) 15 unit SUBCUT 1200,1800 [facility] Last Admin: 07/22/16 18:43 Dose: Not Given Insulin Aspart (Novolog) 0 unit SUBCUT TIDAC [facility] PRN Reason: Protocol Last Admin: 07/20/16 17:14 Dose: 6 units Insulin Aspart (Novolog) 0 unit SUBCUT TIDMEALS [facility] PRN Reason: Protocol Last Admin: 07/22/16 18:42 Dose: Not Given Insulin Aspart (Novolog) 0 unit SUBCUT TIDMEALS [facility] PRN Reason: Protocol Last Admin: 07/24/16 08:09 Dose: 9 units Insulin Detemir (Levemir) 3 unit SUBCUT ONETIME ONE Stop: 07/27/16 21:16 Last Admin: 07/27/16 21:37 Dose: 3 units Lorazepam (Ativan) 0.5 mg PO BEDTIME PRN PRN Reason: Insomnia Last Admin: 07/27/16 20:35 Dose: 0.5 mg Zolpidem Tartrate (Ambien) 5 mg PO BEDTIME PRN PRN Reason: Insomnia - Exam General: alert, oriented Lungs: Normal respiratory effort Abdomen: soft, no tenderness Extremities: no edema Neurological: other (patient able to lift and maintain the right leg against gravity; slight difficulty lifting the left leg against gravity due to pain; ambulated around the room with the assistance of a walker) - Problem List Review Problem List Initiated/Reviewed/Updated: Yes - My Orders Last 24 Hours: My Active Orders 07/28/16 08:24 Abdomen Pelvis wo Cont [CT] Routine Upperco Sutures Removal [RC] Click To Edit 07/28/16 09:16 LORazepam [Ativan] 1 mg PO BEDTIME PRN - Plan Plan:: Status post l3-S1 vertebral fusion surgery on 14 July - continue physical therapy - has been having left leg pain, has been on Tylenol extra Rosalind which is working for him - Continue Flexeril - avoid narcotic urinary retention - has tried removing the Andrews catheter however patient still retained 500- 600 cc of urine - Patient has been on Flomax and finasteride chronically - Urinalysis checked showed hematuria; CAT scan done Will followup - Recommend urology consultation Insomnia - Patient has been on trazodone and Benadryl however since admission during his stay in the hospital, is not getting good sleep - He was started on Ativan 0.5 mg last night with no reported intolerance; consider increasing this to 1 mg Diabetes - Continue Lantus and short-acting insulin - Use supplemental insulin as needed Hypertension - Continue LING inhibitor and hydrochlorothiazide Episodes of constipation, resolved
[2016-07-28] MEDS: Lactulose Soln 10 GM/15 ML 30 ML UD Cup PO PRN (11:34)
--- NOTE | 2016-07-28 13:53 | CT ---
CLINICAL HISTORY: 75-year-old hypertensive 187 pound diabetic male who has had previous back surgery , appendectomy and colon surgery presents now with "urinary retention". SCAN TECHNIQUE: Volume acquisition of data from an unenhanced CT scan of the abdomen and pelvis obta ined with the patient lying supine on the Siemens multislice CT scanner [place], [place]. All data archived in the PAC system for storage, reformatting and study. INTERPRETATION: 1. Indwelling urinary catheter this patient with small volume, symmetrically distended, urinary blad aracelis (large volume of air in the bladder dome where the tip of the catheter lies; Andrews balloon resti ng on the bladder trigone). Midline prostate gland not particularly enlarged. No pelvic lymphadenopathy. 2. Symmetric normal reniform configuration, small kidneys. No renal cortical mass (cystic or solid), signs of nephrolithiasis or obstructive uropathy upper tracts (isolated vascular calcification hilu s of the left kidney). 3. Densely calcified "cast" normal caliber aortoiliac vessels. No aneurysm or dissection. 4. Diverticulosis descending left and sigmoid colon. No associated inflammatory changes. 5. Gallbladder, liver, stomach, spleen, pancreas and adrenal glands unremarkable. 6. Evidence of extensive orthopedic fusion (posteriorly) from L1-S1 levels of the spine (normal heig ht and alignment bodies). 7. Lung bases clear. CONCLUSION: Indwelling Andrews catheter urinary bladder. No sign of obstructive uropathy upper tracts. Back surgery. Diverticulosis left colon. Appendectomy.
[2016-07-28] MEDS ORDERED: Sodium Chloride 0.9% 1,000 ML IV ONE (17:45)
[2016-07-28] MEDS ORDERED: Sodium Chloride 0.9% 10 ML Syringe FLUSH PRN (18:03)
[2016-07-28] MEDS: Tamsulosin 0.4 MG Cap.ER PO SCH (20:49)
[2016-07-28] MEDS: Simvastatin 10 MG Tab PO SCH (20:49)
[2016-07-28] MEDS: Niacin 500 MG Tab.ER PO SCH (20:50)
[2016-07-28] MEDS: traZODone 50 MG Tab PO SCH (20:50)
[2016-07-28] MEDS ORDERED: Zolpidem 5 MG Tab PO PRN (20:53)
[2016-07-28] MEDS: INSULIN GLARG HUMAN REC ANALOG SUBCUT SCH (20:57)
[2016-07-29] MEDS ORDERED: LORazepam 2 MG/ML Syringe IM ONE (01:19)
[2016-07-29] MEDS: Cyclobenzaprine 10 MG Tab PO PRN (01:33)
[2016-07-29] MEDS ORDERED: Haloperidol Lactate 5 MG/ML SDV IM ONE (01:56)
[2016-07-29] MEDS ORDERED: OLANZapine 5 MG in Water For Injection, Sterile 2.1 ML IM ONE (03:28)
[2016-07-29] MEDS ORDERED: OLANZapine 10 MG Vial IM ONE (03:45)
[2016-07-29] MEDS: Omeprazole 20 MG Cap.CR PO SCH (07:24)
[2016-07-29] MEDS: Heparin Sodium 5,000 Units/ML Vial SUBCUT SCH ×3 (07:26→22:02)
[2016-07-29] MEDS: Insulin Aspart 100 Units/ML 3 ML Pen SUBCUT SCH ×6 (08:21→17:39)
[2016-07-29] MEDS: Lidocaine 5% 700 MG Patch TOP SCH (09:46)
[2016-07-29] MEDS: Aspirin 81 MG Tab.EC PO SCH (09:46)
[2016-07-29] MEDS: Metoprolol Tartrate 25 MG Tab PO SCH ×2 (09:47→20:44)
[2016-07-29] MEDS: Hydroxychloroquine 200 MG Tab PO SCH (09:48)
[2016-07-29] MEDS: Finasteride 5 MG Tab PO SCH (09:49)
[2016-07-29] MEDS ORDERED: Benzocaine/Docusate Sodium 20-283 MG/5 ML Enema RECTAL PRN (12:03)
--- NOTE | 2016-07-29 12:24 | PCM.PN ---
- General Info Date of Service: 07/29/16 Admission Dx/Problem (Free Text): Admission Diagnosis/Problem Admission Diagnosis/Problem Weakness the patient is a 75-year-old gentleman with a history of diabetes, BPH, hypertension. The patient was diagnosed with lumbar disc disease with radiculopathy on 14 July the patient underwent a L3-S1 spinal fusion surgery in [place]. Date patients a postoperative wound recovery was complicated repeat dose of the balls that responded to lactulose. Had urinary retention. Had confusion with pain medications. He was in acute care and then switched to swing bed. The patient wanted to get closer to her he is home and was transferred to [facility] to continue swing bed recovery. Subjective Update: last night the patient the was unable to sleep. Had episodes of restlessness, confusion, was pulling on his catheter. 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 - Review of Systems General: Denies: Fever Pulmonary: Denies: shortness of breath Cardiovascular: Denies: Chest Pain Neurological: Reports: Confusion (last night, improved during the day) - Patient Data Vitals - most recent: Last Vital Signs Temp 37.1 C 07/29/16 07:19 Pulse 118 H 07/29/16 09:47 Resp 20 07/29/16 07:19 BP 115/63 07/29/16 09:47 Pulse Ox 97 07/29/16 07:19 Weight - most recent: 84.912 kg I&O - last 24 hours: Intake & Output 07/28/16 07/29/16 07/29/16 22:59 06:59 14:59 Intake Total 1573 200 Output Total 758 907 2719 Balance [phone] -[phone] Lab Results last 24 hrs: Laboratory Results - last 24 hr 07/28/16 07/28/16 07/29/16 Range/Units 16:48 20:30 07:44 POC Glucose 160 H 218 H 206 H (83-110) mg/dl 07/29/16 Range/Units 11:15 POC Glucose 152 H (83-110) mg/dl Med Orders - Current: Current Medications Acetaminophen (Tylenol) 650 mg PO Q4H PRN PRN Reason: Pain (Mild 1-3)/fever Last Admin: 07/28/16 20:48 Dose: 650 mg Aspirin (Halfprin) 81 mg PO DAILY [facility] Last Admin: 07/29/16 09:46 Dose: 81 mg Calcitriol (Rocaltrol) 0.25 mcg PO MoWeFr@0900 [facility] Last Admin: 07/28/16 08:20 Dose: 0.25 mcg Cyclobenzaprine HCl (Flexeril) 5 mg PO BID PRN PRN Reason: Pain Docusate Sodium/Benzocaine (Enemeez Plus Mini Enema) 1 each RECTAL DAILY PRN PRN Reason: Constipation Finasteride (Proscar) 5 mg PO DAILY [facility] Last Admin: 07/29/16 09:49 Dose: 5 mg Heparin Sodium (Porcine) (Heparin Sodium) 5,000 units SUBCUT Q8HR [facility] Last Admin: 07/29/16 07:26 Dose: 5,000 units Hydroxychloroquine Sulfate (Plaquenil) 200 mg PO DAILY [facility] Last Admin: 07/29/16 09:48 Dose: 200 mg Insulin Aspart (Novolog) 5 unit SUBCUT TIDMEALS [facility] Last Admin: 07/29/16 08:21 Dose: 5 unit Insulin Aspart (Novolog) 0 unit SUBCUT TIDMEALS [facility] PRN Reason: Protocol Last Admin: 07/29/16 08:22 Dose: 4 unit Lactulose (Cephulac) 20 gm PO DAILY PRN PRN Reason: Constipation Last Admin: 07/28/16 11:34 Dose: 20 gm Lidocaine (Lidoderm 5%) 700 mg TOP DAILY@0900 [facility] Last Admin: 07/29/16 09:46 Dose: 700 mg Methyl Salicylate (Icy Hot Cream) 0 gm TOP Q3H PRN PRN Reason: Pain Last Admin: 07/26/16 21:34 Dose: 1 applic Metoprolol Tartrate (Lopressor) 25 mg PO BID [facility] Last Admin: 07/29/16 09:47 Dose: 25 mg Miscellaneous Information (Remove Patch) 1 ea TRDERM DAILY@2100 [facility] Last Admin: 07/28/16 20:56 Dose: 1 ea Niacin (Niaspan) 500 mg PO BEDTIME [facility] Last Admin: 07/28/16 20:50 Dose: 500 mg Omeprazole (Omeprazole) 40 mg PO ACBREAKFAST [facility] Last Admin: 07/29/16 07:24 Dose: 40 mg Ondansetron HCl (Zofran Odt) 4 mg PO Q6H PRN PRN Reason: nausea, able to take PO Insulin Glarg,Human. Rec.Analog [Lantus Solostar]Pt's Own Med 0 each SUBCUT BEDTIME [facility] Last Admin: 07/28/16 20:57 Dose: 22 each Polyethylene Glycol (Miralax) 17 gm PO DAILY [facility] Senna/Docusate Sodium (Senna Plus) 1 tab PO BID [facility] Last Admin: 07/29/16 09:48 Dose: 1 tab Simvastatin (Zocor) 20 mg PO BEDTIME [facility] Last Admin: 07/28/16 20:49 Dose: 20 mg Sodium Chloride (Saline Flush) 10 ml FLUSH ASDIRECTED PRN PRN Reason: Keep Vein Open Last Admin: 07/29/16 09:48 Dose: 10 ml Tamsulosin HCl (Flomax) 0.8 mg PO BEDTIME [facility] Last Admin: 07/28/16 20:49 Dose: 0.8 mg Trazodone HCl (Trazodone) 50 mg PO BEDTIME [facility] Last Admin: 07/28/16 20:50 Dose: 50 mg Triamcinolone Acetonide (Triamcinolone Acetonide 0.1% Crm) 0 gm TOP TID PRN PRN Reason: Itching Zolpidem Tartrate (Ambien) 5 mg PO BEDTIME PRN PRN Reason: Sleep Last Admin: 07/28/16 21:44 Dose: 5 mg Discontinued Medications Hydrocodone Bitart/Acetaminophen ([place] 325-5 Mg) 0.5 tab PO Q6H PRN PRN Reason: Pain (severe 7-10) Last Admin: 07/23/16 02:09 Dose: 0.5 tab Hydrocodone Bitart/Acetaminophen ([place] 325-5 Mg) 1 tab PO Q6H PRN PRN Reason: Pain (severe 7-10) Last Admin: 07/24/16 06:43 Dose: 1 tab Hydrocodone Bitart/Acetaminophen ([place] 325-5 Mg) 0.5 tab PO Q6H PRN PRN Reason: Pain (moderate 4-6) Bisacodyl (Dulcolax) 10 mg RECTAL ONETIME ONE Stop: 07/25/16 08:08 Last Admin: 07/25/16 08:57 Dose: 10 mg Cyclobenzaprine HCl (Flexeril) 10 mg PO BID PRN PRN Reason: Pain Last Admin: 07/26/16 21:49 Dose: 10 mg Haloperidol Lactate (Haldol) 2 mg IM ONETIME ONE Stop: 07/29/16 01:57 Last Admin: 07/29/16 02:05 Dose: 2 mg Hydroxyzine HCl (Atarax) 25 mg PO BEDTIME [facility] Last Admin: 07/27/16 20:28 Dose: 25 mg Sodium Chloride (Normal Saline) 1,000 mls @ 999 mls/hr IV .BOLUS ONE Stop: 07/28/16 18:45 Last Admin: 07/28/16 17:59 Dose: 999 mls/hr Olanzapine 5 mg/ Sterile Water 2.1 mls @ 999 mls/hr IM ONETIME ONE Stop: 07/29/16 03:29 Last Admin: 07/29/16 11:50 Dose: Not Given Insulin Aspart (Novolog) 10 unit SUBCUT DAILY@0800 [facility] Last Admin: 07/22/16 08:14 Dose: 10 units Insulin Aspart (Novolog) 15 unit SUBCUT 1200,1800 [facility] Last Admin: 07/22/16 18:43 Dose: Not Given Insulin Aspart (Novolog) 0 unit SUBCUT TIDAC [facility] PRN Reason: Protocol Last Admin: 07/20/16 17:14 Dose: 6 units Insulin Aspart (Novolog) 0 unit SUBCUT TIDMEALS [facility] PRN Reason: Protocol Last Admin: 07/22/16 18:42 Dose: Not Given Insulin Aspart (Novolog) 0 unit SUBCUT TIDMEALS [facility] PRN Reason: Protocol Last Admin: 07/24/16 08:09 Dose: 9 units Insulin Detemir (Levemir) 3 unit SUBCUT ONETIME ONE Stop: 07/27/16 21:16 Last Admin: 07/27/16 21:37 Dose: 3 units Lorazepam (Ativan) 0.5 mg PO BEDTIME PRN PRN Reason: Insomnia Last Admin: 07/27/16 20:35 Dose: 0.5 mg Lorazepam (Ativan) 1 mg PO BEDTIME PRN PRN Reason: Insomnia Last Admin: 07/28/16 20:48 Dose: 1 mg Lorazepam (Ativan) 1 mg IM ONETIME ONE Stop: 07/29/16 01:20 Last Admin: 07/29/16 01:31 Dose: 1 mg Olanzapine (Zyprexa) 5 mg IM NOW ONE Stop: 07/29/16 03:46 Last Admin: 07/29/16 03:47 Dose: 5 mg Tylenol Pm ( Acetaminophen 500/Diphenhydramine 25) Own Med 0 each PO BEDTIME PRN PRN Reason: Sleep Last Admin: 07/26/16 21:43 Dose: 1 each Zolpidem Tartrate (Ambien) 5 mg PO BEDTIME PRN PRN Reason: Insomnia - Exam General: oriented, other (sleepy but arouses easily) Lungs: Clear to auscultation Cardiovascular: Regular Rate Extremities: no edema - Problem List Review Problem List Initiated/Reviewed/Updated: Yes - My Orders Last 24 Hours: My Active Orders 07/28/16 20:52 Cyclobenzaprine [Flexeril] 5 mg PO BID PRN 07/28/16 20:53 Zolpidem [Ambien] 5 mg PO BEDTIME PRN 07/29/16 12:03 Benzocaine/Docusate Sodium [Enemeez Plus Mini Enema] 1 each RECTAL DAILY PRN 07/29/16 12:15 Polyethylene Glycol 3350 [MiraLAX] 17 gm PO DAILY 07/30/16 05:15 BASIC METABOLIC PANEL,BMP [CHEM] AM CBC WITH AUTO DIFF [HEME] AM - Plan Plan:: Status post l3-S1 vertebral fusion surgery on 14 July - continue physical therapy - has been having left leg pain, has been on Tylenol which is working for him - Continue Flexeril urinary retention - has tried removing the Andrews catheter however patient still retained 500- 600 cc of urine - Patient has been on Flomax and finasteride chronically - followup as outpatient with urology consultation Insomnia - Patient has been on trazodone and Benadryl in the past - Since admission during his stay in the hospital, is not getting good sleep - will try trazodone, benadryl, - seroquel for agitation, - try to keep day/night balance Diabetes - Continue Lantus and short-acting insulin - Use supplemental insulin as needed Hypertension - Continue LING inhibitor and hydrochlorothiazide constipation - add enema
[2016-07-29] MEDS ORDERED: OLANZapine 10 MG in Water For Injection, Sterile 2.1 ML IM PRN (12:25)
[2016-07-29] MEDS ORDERED: OLANZapine 10 MG Vial IM PRN (12:39)
[2016-07-29] MEDS: Polyethylene Glycol 3350 Powder 17 GM Packet PO SCH (15:02)
[2016-07-29] MEDS: Tamsulosin 0.4 MG Cap.ER PO SCH (20:44)
[2016-07-29] MEDS: Niacin 500 MG Tab.ER PO SCH (20:45)
[2016-07-29] MEDS: traZODone 50 MG Tab PO SCH (20:46)
[2016-07-29] MEDS: Simvastatin 10 MG Tab PO SCH (20:47)
[2016-07-29] MEDS: INSULIN GLARG HUMAN REC ANALOG SUBCUT SCH (21:31)
[2016-07-30] MEDS: Acetaminophen 325 MG Tab PO PRN ×2 (04:10→22:20)
[2016-07-30] MEDS: Cyclobenzaprine 10 MG Tab PO PRN (05:18)
[2016-07-30] MEDS: Omeprazole 20 MG Cap.CR PO SCH (05:18)
[2016-07-30] MEDS: Heparin Sodium 5,000 Units/ML Vial SUBCUT SCH ×3 (05:19→22:20)
[2016-07-30] MEDS: Insulin Aspart 100 Units/ML 3 ML Pen SUBCUT SCH ×6 (08:29→17:31)
[2016-07-30] MEDS: Aspirin 81 MG Tab.EC PO SCH (09:15)
[2016-07-30] MEDS: Lidocaine 5% 700 MG Patch TOP SCH (09:15)
[2016-07-30] MEDS: Metoprolol Tartrate 25 MG Tab PO SCH ×2 (09:16→21:00)
[2016-07-30] MEDS: Polyethylene Glycol 3350 Powder 17 GM Packet PO SCH (09:16)
[2016-07-30] MEDS: Hydroxychloroquine 200 MG Tab PO SCH (09:16)
[2016-07-30] MEDS: Calcitriol 0.25 MCG Cap PO SCH (09:17)
[2016-07-30] MEDS: Finasteride 5 MG Tab PO SCH (09:17)
[2016-07-30] MEDS: Niacin 500 MG Tab.ER PO SCH (21:00)
[2016-07-30] MEDS: traZODone 50 MG Tab PO SCH (21:00)
[2016-07-30] MEDS: Tamsulosin 0.4 MG Cap.ER PO SCH (21:00)
[2016-07-30] MEDS: Simvastatin 10 MG Tab PO SCH (21:00)
[2016-07-30] MEDS: INSULIN GLARG HUMAN REC ANALOG SUBCUT SCH (21:04)
[2016-07-30] MEDS: Menthol/Methyl Salicylate 85 GM Tube TOP PRN (22:20)
[2016-07-31] MEDS: Cyclobenzaprine 10 MG Tab PO PRN ×2 (03:03→21:18)
[2016-07-31] MEDS: Acetaminophen 325 MG Tab PO PRN ×3 (03:04→21:13)
[2016-07-31] MEDS: Omeprazole 20 MG Cap.CR PO SCH (06:19)
[2016-07-31] MEDS: Heparin Sodium 5,000 Units/ML Vial SUBCUT SCH ×3 (06:19→23:03)
[2016-07-31] MEDS: Lidocaine 5% 700 MG Patch TOP SCH (08:57)
[2016-07-31] MEDS: Insulin Aspart 100 Units/ML 3 ML Pen SUBCUT SCH ×6 (08:58→17:48)
[2016-07-31] MEDS: Hydroxychloroquine 200 MG Tab PO SCH (10:50)
[2016-07-31] MEDS: Metoprolol Tartrate 25 MG Tab PO SCH ×2 (10:51→21:18)
[2016-07-31] MEDS: Finasteride 5 MG Tab PO SCH (10:54)
[2016-07-31] MEDS: Aspirin 81 MG Tab.EC PO SCH (10:55)
[2016-07-31] MEDS: Polyethylene Glycol 3350 Powder 17 GM Packet PO SCH (10:55)
[2016-07-31] MEDS: Lactulose Soln 10 GM/15 ML 30 ML UD Cup PO PRN (12:37)
[2016-07-31] MEDS: Menthol/Methyl Salicylate 85 GM Tube TOP PRN (21:10)
[2016-07-31] MEDS: INSULIN GLARG HUMAN REC ANALOG SUBCUT SCH (21:11)
[2016-07-31] MEDS: Niacin 500 MG Tab.ER PO SCH (21:13)
[2016-07-31] MEDS: Tamsulosin 0.4 MG Cap.ER PO SCH (21:13)
[2016-07-31] MEDS: traZODone 50 MG Tab PO SCH (21:14)
[2016-07-31] MEDS: Simvastatin 10 MG Tab PO SCH (21:18)
[2016-08-01] MEDS ORDERED: traMADol 50 MG Tab PO ONE (00:36)
[2016-08-01] MEDS ORDERED: fentaNYL 25 MCG/HR Transdermal Patch TRDERM SCH (03:15)
[2016-08-01] MEDS: Acetaminophen 325 MG Tab PO PRN ×4 (03:18→22:35)
[2016-08-01] MEDS: Cyclobenzaprine 10 MG Tab PO PRN ×2 (05:12→22:34)
[2016-08-01] MEDS: Omeprazole 20 MG Cap.CR PO SCH (05:43)
[2016-08-01] MEDS: Heparin Sodium 5,000 Units/ML Vial SUBCUT SCH ×3 (05:44→21:24)
[2016-08-01] MEDS: Lidocaine 5% 700 MG Patch TOP SCH ×2 (08:01→21:03)
[2016-08-01] MEDS: Insulin Aspart 100 Units/ML 3 ML Pen SUBCUT SCH ×6 (08:11→17:37)
[2016-08-01] MEDS: Aspirin 81 MG Tab.EC PO SCH (09:37)
[2016-08-01] MEDS: Polyethylene Glycol 3350 Powder 17 GM Packet PO SCH (09:38)
[2016-08-01] MEDS: Finasteride 5 MG Tab PO SCH (09:39)
[2016-08-01] MEDS: Hydroxychloroquine 200 MG Tab PO SCH (09:40)
[2016-08-01] MEDS: Metoprolol Tartrate 25 MG Tab PO SCH ×2 (09:47→21:03)
[2016-08-01] MEDS: Niacin 500 MG Tab.ER PO SCH (21:02)
[2016-08-01] MEDS: Tamsulosin 0.4 MG Cap.ER PO SCH (21:02)
[2016-08-01] MEDS: traZODone 50 MG Tab PO SCH (21:02)
[2016-08-01] MEDS: Simvastatin 10 MG Tab PO SCH (21:03)
[2016-08-01] MEDS: INSULIN GLARG HUMAN REC ANALOG SUBCUT SCH (21:23)
[2016-08-02] MEDS: Omeprazole 20 MG Cap.CR PO SCH (05:02)
[2016-08-02] MEDS: Heparin Sodium 5,000 Units/ML Vial SUBCUT SCH ×3 (05:05→22:19)
[2016-08-02] MEDS: Polyethylene Glycol 3350 Powder 17 GM Packet PO SCH (09:08)
[2016-08-02] MEDS: Calcitriol 0.25 MCG Cap PO SCH (09:08)
[2016-08-02] MEDS: Finasteride 5 MG Tab PO SCH (09:08)
[2016-08-02] MEDS: Metoprolol Tartrate 25 MG Tab PO SCH ×2 (09:08→20:44)
[2016-08-02] MEDS: Aspirin 81 MG Tab.EC PO SCH (09:08)
[2016-08-02] MEDS: Insulin Aspart 100 Units/ML 3 ML Pen SUBCUT SCH ×6 (09:11→17:42)
[2016-08-02] MEDS: Menthol/Methyl Salicylate 85 GM Tube TOP PRN ×2 (09:20→20:54)
[2016-08-02] MEDS: Ciprofloxacin 500 MG Tab PO SCH ×2 (11:39→20:40)
[2016-08-02] MEDS: Hydroxychloroquine 200 MG Tab PO SCH (11:39)
[2016-08-02] MEDS: Acetaminophen 325 MG Tab PO PRN ×2 (11:41→22:47)
[2016-08-02] MEDS: Niacin 500 MG Tab.ER PO SCH (20:40)
[2016-08-02] MEDS: Tamsulosin 0.4 MG Cap.ER PO SCH (20:41)
[2016-08-02] MEDS: Simvastatin 10 MG Tab PO SCH (20:41)
[2016-08-02] MEDS: traZODone 50 MG Tab PO SCH (20:44)
[2016-08-02] MEDS: Lidocaine 5% 700 MG Patch TOP SCH (20:45)
[2016-08-02] MEDS: INSULIN GLARG HUMAN REC ANALOG SUBCUT SCH (20:48)
[2016-08-03] MEDS: Menthol/Methyl Salicylate 85 GM Tube TOP PRN ×2 (04:32→23:22)
[2016-08-03] MEDS: Acetaminophen 325 MG Tab PO PRN ×3 (04:34→21:38)
[2016-08-03] MEDS: Omeprazole 20 MG Cap.CR PO SCH (05:33)
[2016-08-03] MEDS: Heparin Sodium 5,000 Units/ML Vial SUBCUT SCH ×3 (05:36→21:36)
[2016-08-03] MEDS: Cyclobenzaprine 10 MG Tab PO PRN ×2 (05:38→21:30)
[2016-08-03] MEDS: Polyethylene Glycol 3350 Powder 17 GM Packet PO SCH (09:28)
[2016-08-03] MEDS: Insulin Aspart 100 Units/ML 3 ML Pen SUBCUT SCH ×6 (09:30→17:51)
[2016-08-03] MEDS: Hydroxychloroquine 200 MG Tab PO SCH (09:31)
[2016-08-03] MEDS: Ciprofloxacin 500 MG Tab PO SCH ×2 (09:32→21:32)
[2016-08-03] MEDS: Finasteride 5 MG Tab PO SCH (09:32)
[2016-08-03] MEDS: Aspirin 81 MG Tab.EC PO SCH (09:32)
[2016-08-03] MEDS: Metoprolol Tartrate 25 MG Tab PO SCH ×2 (09:32→21:31)
--- NOTE | 2016-08-03 12:01 | PCM.PN ---
- General Info Date of Service: 08/03/16 Admission Dx/Problem (Free Text): Admission Diagnosis/Problem Admission Diagnosis/Problem Weakness the patient is a 75-year-old gentleman with a history of diabetes, BPH, hypertension. The patient was diagnosed with lumbar disc disease with radiculopathy on 14 July the patient underwent a L3-S1 spinal fusion surgery in [place], [place]. Date patients a postoperative wound recovery was complicated repeat dose of the balls that responded to lactulose. Had urinary retention. Had confusion with pain medications. He was in acute care and then switched to swing bed. The patient wanted to get closer to her he is home and was transferred to [facility] to continue swing bed recovery. Subjective Update: The patient has been continuing with urinary catheter for urinary retention. He would like that to be taken out. He is working with physical therapy and patient therapy. While walking reports pain to the left hip. The pain is worse with activity better with rest. For a few days he was on fentanyl patch. We discontinued that to prevent worsening of urinary retention. He was diagnosed with a urinary tract infection, started on ciprofloxacin. Complaining of urinary burning and discomfort with the catheter. He had difficulty sleeping for a few nights but then this has improved. Functional Status: Reports: pain controlled, tolerating diet - Review of Systems General: Reports: Weakness. Denies: Fever Pulmonary: Denies: shortness of breath Cardiovascular: Denies: Chest Pain Gastrointestinal: Denies: Abdominal pain Genitourinary: Reports: dysuria - Patient Data Vitals - most recent: Last Vital Signs Temp 36.6 C 08/03/16 08:13 Pulse 91 08/03/16 09:32 Resp 20 08/03/16 08:13 BP 102/65 08/03/16 09:32 Pulse Ox 100 08/03/16 08:13 Weight - most recent: 84.912 kg I&O - last 24 hours: Intake & Output 08/02/16 08/03/16 08/03/16 22:59 06:59 14:59 Intake Total 600 Output Total 700 Balance -100 Lab Results last 24 hrs: Laboratory Results - last 24 hr 08/02/16 08/02/16 08/03/16 Range/Units 16:59 20:49 06:10 WBC 9.9 (5.0-10.0) 10^3/uL RBC 3.67 L (4.6-6.2) 10^6/uL Hgb 10.8 L (14.0-18.0) g/dL Hct 33.4 L (40.0-54.0) % MCV 91.0 (80-100) fL MCH 29.4 (27.0-34.0) pg MCHC 32.3 L (33.0-35.0) g/dL Plt Count 299 (150-450) 10^3/uL Neut % (Auto) 66.7 (42.2-75.2) % Lymph % (Auto) 19.0 L (20.5-50.1) % Frederick % (Auto) 11.4 H (2-8) % Eos % (Auto) 2.3 (1.0-3.0) % Baso % (Auto) 0.6 (0.0-1.0) % Sodium (135-145) mmol/L Potassium (3.6-5.0) mmol/L Chloride (101-111) mmol/L Carbon Dioxide (21.0-31.0) mmol/L Anion Gap BUN (7-18) mg/dL Creatinine (0.6-1.3) mg/dL Est Cr Clr Drug Dosing mL/min Estimated GFR (MDRD) Glucose (74-105) mg/dL POC Glucose 131 H 269 H (83-110) mg/dl Calcium (8.4-10.2) mg/dl 08/03/16 08/03/16 08/03/16 Range/Units 06:10 07:38 11:37 WBC (5.0-10.0) 10^3/uL RBC (4.6-6.2) 10^6/uL Hgb (14.0-18.0) g/dL Hct (40.0-54.0) % MCV (80-100) fL MCH (27.0-34.0) pg MCHC (33.0-35.0) g/dL Plt Count (150-450) 10^3/uL Neut % (Auto) (42.2-75.2) % Lymph % (Auto) (20.5-50.1) % Frederick % (Auto) (2-8) % Eos % (Auto) (1.0-3.0) % Baso % (Auto) (0.0-1.0) % Sodium 134 L (135-145) mmol/L Potassium 4.5 (3.6-5.0) mmol/L Chloride 98 L (101-111) mmol/L Carbon Dioxide 26.0 (21.0-31.0) mmol/L Anion Gap 14.5 BUN 40 H (7-18) mg/dL Creatinine 1.9 H (0.6-1.3) mg/dL Est Cr Clr Drug Dosing 31.41 mL/min Estimated GFR (MDRD) 35 Glucose 189 H (74-105) mg/dL POC Glucose 194 H 254 H (83-110) mg/dl Calcium 9.2 (8.4-10.2) mg/dl Ryne Results last 24 hrs: Microbiology 08/01/16 22:25 Urine Culture - Preliminary Urine, Patel Cath (Indwelling) Med Orders - Current: Current Medications Acetaminophen (Tylenol) 650 mg PO Q4H PRN PRN Reason: Pain (Mild 1-3)/fever Last Admin: 08/03/16 09:34 Dose: 650 mg Aspirin (Halfprin) 81 mg PO DAILY [facility] Last Admin: 08/03/16 09:32 Dose: 81 mg Calcitriol (Rocaltrol) 0.25 mcg PO MoWeFr@0900 [facility] Last Admin: 08/02/16 09:08 Dose: 0.25 mcg Ciprofloxacin (Ciprofloxacin Hcl) 500 mg PO BID [facility] Stop: 08/09/16 10:31 Last Admin: 08/03/16 09:32 Dose: 500 mg Cyclobenzaprine HCl (Flexeril) 5 mg PO BID PRN PRN Reason: Pain Last Admin: 08/03/16 05:38 Dose: 5 mg Diphenhydramine HCl (Benadryl) 25 mg PO BEDTIME PRN PRN Reason: Sleep Docusate Sodium/Benzocaine (Enemeez Plus Mini Enema) 1 each RECTAL DAILY PRN PRN Reason: Constipation Finasteride (Proscar) 5 mg PO DAILY [facility] Last Admin: 08/03/16 09:32 Dose: 5 mg Heparin Sodium (Porcine) (Heparin Sodium) 5,000 units SUBCUT Q8HR [facility] Last Admin: 08/03/16 05:36 Dose: 5,000 units Hydroxychloroquine Sulfate (Plaquenil) 200 mg PO DAILY [facility] Last Admin: 08/03/16 09:31 Dose: 200 mg Insulin Aspart (Novolog) 5 unit SUBCUT TIDMEALS [facility] Last Admin: 08/03/16 09:30 Dose: 5 unit Insulin Aspart (Novolog) 0 unit SUBCUT TIDMEALS [facility] PRN Reason: Protocol Last Admin: 08/03/16 09:30 Dose: 2 unit Lactulose (Cephulac) 20 gm PO DAILY PRN PRN Reason: Constipation Last Admin: 07/31/16 12:37 Dose: 20 gm Lidocaine (Lidoderm 5%) 700 mg TOP DAILY@2100 [facility] Last Admin: 08/02/16 20:45 Dose: 700 mg Methyl Salicylate (Icy Hot Cream) 0 gm TOP Q3H PRN PRN Reason: Pain Last Admin: 08/03/16 04:32 Dose: 1 applic Metoprolol Tartrate (Lopressor) 25 mg PO BID [facility] Last Admin: 08/03/16 09:32 Dose: 25 mg Miscellaneous Information (Remove Patch) 1 ea TRDERM DAILY@0900 [facility] Last Admin: 08/03/16 09:36 Dose: Not Given Niacin (Niaspan) 500 mg PO BEDTIME [facility] Last Admin: 08/02/16 20:40 Dose: 500 mg Olanzapine (Zyprexa) 10 mg IM BEDTIME PRN PRN Reason: RESTLESSNESS Omeprazole (Omeprazole) 40 mg PO ACBREAKFAST [facility] Last Admin: 08/03/16 05:33 Dose: 40 mg Ondansetron HCl (Zofran Odt) 4 mg PO Q6H PRN PRN Reason: nausea, able to take PO Insulin Glarg,Human. Rec.Analog [Lantus Solostar]Pt's Own Med 0 each SUBCUT BEDTIME [facility] Last Admin: 08/02/16 20:48 Dose: 1 each Polyethylene Glycol (Miralax) 17 gm PO DAILY [facility] Last Admin: 08/03/16 09:28 Dose: 17 gm Senna/Docusate Sodium (Senna Plus) 1 tab PO BID [facility] Last Admin: 08/03/16 09:31 Dose: 1 tab Simvastatin (Zocor) 20 mg PO BEDTIME [facility] Last Admin: 08/02/16 20:41 Dose: 20 mg Tamsulosin HCl (Flomax) 0.8 mg PO BEDTIME [facility] Last Admin: 08/02/16 20:41 Dose: 0.8 mg Trazodone HCl (Trazodone) 50 mg PO BEDTIME [facility] Last Admin: 08/02/16 20:44 Dose: 50 mg Triamcinolone Acetonide (Triamcinolone Acetonide 0.1% Crm) 0 gm TOP TID PRN PRN Reason: Itching Zolpidem Tartrate (Ambien) 10 mg PO BEDTIME PRN PRN Reason: Sleep Discontinued Medications Hydrocodone Bitart/Acetaminophen ([place] 325-5 Mg) 0.5 tab PO Q6H PRN PRN Reason: Pain (severe 7-10) Last Admin: 07/23/16 02:09 Dose: 0.5 tab Hydrocodone Bitart/Acetaminophen ([place] 325-5 Mg) 1 tab PO Q6H PRN PRN Reason: Pain (severe 7-10) Last Admin: 07/24/16 06:43 Dose: 1 tab Hydrocodone Bitart/Acetaminophen ([place] 325-5 Mg) 0.5 tab PO Q6H PRN PRN Reason: Pain (moderate 4-6) Bisacodyl (Dulcolax) 10 mg RECTAL ONETIME ONE Stop: 07/25/16 08:08 Last Admin: 07/25/16 08:57 Dose: 10 mg Cyclobenzaprine HCl (Flexeril) 10 mg PO BID PRN PRN Reason: Pain Last Admin: 07/26/16 21:49 Dose: 10 mg Fentanyl (Duragesic) 25 mcg TRDERM Q72H [facility] Last Admin: 08/01/16 03:19 Dose: 25 mcg Haloperidol Lactate (Haldol) 2 mg IM ONETIME ONE Stop: 07/29/16 01:57 Last Admin: 07/29/16 02:05 Dose: 2 mg Hydroxyzine HCl (Atarax) 25 mg PO BEDTIME [facility] Last Admin: 07/27/16 20:28 Dose: 25 mg Sodium Chloride (Normal Saline) 1,000 mls @ 999 mls/hr IV .BOLUS ONE Stop: 07/28/16 18:45 Last Admin: 07/28/16 17:59 Dose: 999 mls/hr Olanzapine 5 mg/ Sterile Water 2.1 mls @ 999 mls/hr IM ONETIME ONE Stop: 07/29/16 03:29 Last Admin: 07/29/16 11:50 Dose: Not Given Olanzapine 10 mg/ Sterile (Water) 2.1 mls @ 999 mls/hr IM .QHS PRN PRN Reason: Agitation Insulin Aspart (Novolog) 10 unit SUBCUT DAILY@0800 [facility] Last Admin: 07/22/16 08:14 Dose: 10 units Insulin Aspart (Novolog) 15 unit SUBCUT 1200,1800 [facility] Last Admin: 07/22/16 18:43 Dose: Not Given Insulin Aspart (Novolog) 0 unit SUBCUT TIDAC [facility] PRN Reason: Protocol Last Admin: 07/20/16 17:14 Dose: 6 units Insulin Aspart (Novolog) 0 unit SUBCUT TIDMEALS [facility] PRN Reason: Protocol Last Admin: 07/22/16 18:42 Dose: Not Given Insulin Aspart (Novolog) 0 unit SUBCUT TIDMEALS [facility] PRN Reason: Protocol Last Admin: 07/24/16 08:09 Dose: 9 units Insulin Detemir (Levemir) 3 unit SUBCUT ONETIME ONE Stop: 07/27/16 21:16 Last Admin: 07/27/16 21:37 Dose: 3 units Lidocaine (Lidoderm 5%) 700 mg TOP DAILY@0900 [facility] Last Admin: 08/01/16 08:01 Dose: 700 mg Lorazepam (Ativan) 0.5 mg PO BEDTIME PRN PRN Reason: Insomnia Last Admin: 07/27/16 20:35 Dose: 0.5 mg Lorazepam (Ativan) 1 mg PO BEDTIME PRN PRN Reason: Insomnia Last Admin: 07/28/16 20:48 Dose: 1 mg Lorazepam (Ativan) 1 mg IM ONETIME ONE Stop: 07/29/16 01:20 Last Admin: 07/29/16 01:31 Dose: 1 mg Miscellaneous Information (Remove Patch) 1 ea TRDERM DAILY@2100 [facility] Last Admin: 07/31/16 21:15 Dose: Not Given Olanzapine (Zyprexa) 5 mg IM NOW ONE Stop: 07/29/16 03:46 Last Admin: 07/29/16 03:47 Dose: 5 mg Tylenol Pm ( Acetaminophen 500/Diphenhydramine 25) Own Med 0 each PO BEDTIME PRN PRN Reason: Sleep Last Admin: 07/26/16 21:43 Dose: 1 each Sodium Chloride (Saline Flush) 10 ml FLUSH ASDIRECTED PRN PRN Reason: Keep Vein Open Last Admin: 07/29/16 09:48 Dose: 10 ml Tramadol HCl (Ultram) 50 mg PO ONETIME ONE Stop: 08/01/16 00:37 Last Admin: 08/01/16 00:50 Dose: 50 mg Zolpidem Tartrate (Ambien) 5 mg PO BEDTIME PRN PRN Reason: Insomnia Zolpidem Tartrate (Ambien) 5 mg PO BEDTIME PRN PRN Reason: Sleep Last Admin: 07/28/16 21:44 Dose: 5 mg - Exam General: alert, oriented Neck: supple Lungs: Clear to auscultation, Normal respiratory effort Cardiovascular: Regular Rate, Regular Rhythm Abdomen: bowel sounds present, soft, no tenderness, no distension Extremities: no edema - Problem List Review Problem List Initiated/Reviewed/Updated: Yes - My Orders Last 24 Hours: My Active Orders 08/03/16 11:58 Remove Urinary Catheter [Urinary Catheter Removal] [RC] Per Unit Routine - Plan Plan:: Status post l3-S1 vertebral fusion surgery on 14 July - continue physical therapy - has been having left leg pain, has been on Tylenol which is working for him - Continue Flexeril urinary retention - will try to remove catheter again - Patient has been on Flomax and finasteride chronically - followup as outpatient with urology has been scheduled Insomnia - Patient has been on trazodone and Benadryl in the past - will try trazodone, benadryl, - seroquel for agitation, - try to keep day/night balance - improved Diabetes - Continue Lantus and short-acting insulin - Use supplemental insulin as needed Hypertension - Continue LING inhibitor and hydrochlorothiazide UTI -indwelling catheter related - Ucx: gram neg rods - started ciprofloxacin - follow culture and sensitiviy results - remove patel
[2016-08-03] MEDS: Lidocaine 5% 700 MG Patch TOP SCH (21:29)
[2016-08-03] MEDS: traZODone 50 MG Tab PO SCH (21:29)
[2016-08-03] MEDS: Phenazopyridine 95 MG Tab PO SCH (21:31)
[2016-08-03] MEDS: Simvastatin 10 MG Tab PO SCH (21:31)
[2016-08-03] MEDS: Niacin 500 MG Tab.ER PO SCH (21:32)
[2016-08-03] MEDS: Tamsulosin 0.4 MG Cap.ER PO SCH (21:32)
[2016-08-03] MEDS: INSULIN GLARG HUMAN REC ANALOG SUBCUT SCH (21:34)
[2016-08-03] MEDS: diphenhydrAMINE 25 MG Tab PO PRN (23:27)
[2016-08-04] MEDS: Acetaminophen 325 MG Tab PO PRN ×5 (01:38→22:11)
[2016-08-04] MEDS: Omeprazole 20 MG Cap.CR PO SCH (05:28)
[2016-08-04] MEDS: Heparin Sodium 5,000 Units/ML Vial SUBCUT SCH ×3 (05:29→21:45)
[2016-08-04] MEDS: Insulin Aspart 100 Units/ML 3 ML Pen SUBCUT SCH ×6 (08:12→18:22)
[2016-08-04] MEDS: Calcitriol 0.25 MCG Cap PO SCH (10:03)
[2016-08-04] MEDS: Hydroxychloroquine 200 MG Tab PO SCH (10:03)
[2016-08-04] MEDS: Phenazopyridine 95 MG Tab PO SCH ×2 (10:03→21:00)
[2016-08-04] MEDS: Finasteride 5 MG Tab PO SCH (10:04)
[2016-08-04] MEDS: Ciprofloxacin 500 MG Tab PO SCH ×2 (10:04→20:58)
[2016-08-04] MEDS: Aspirin 81 MG Tab.EC PO SCH (10:04)
[2016-08-04] MEDS: Metoprolol Tartrate 25 MG Tab PO SCH ×2 (10:05→20:59)
[2016-08-04] MEDS: Polyethylene Glycol 3350 Powder 17 GM Packet PO SCH (10:05)
[2016-08-04] MEDS: Cyclobenzaprine 10 MG Tab PO PRN ×2 (10:07→22:12)
[2016-08-04] MEDS: Menthol/Methyl Salicylate 85 GM Tube TOP PRN ×2 (10:34→17:35)
[2016-08-04] MEDS: Niacin 500 MG Tab.ER PO SCH (20:59)
[2016-08-04] MEDS: Simvastatin 10 MG Tab PO SCH (21:00)
[2016-08-04] MEDS: traZODone 50 MG Tab PO SCH (21:01)
[2016-08-04] MEDS: Tamsulosin 0.4 MG Cap.ER PO SCH (21:01)
[2016-08-04] MEDS: Lidocaine 5% 700 MG Patch TOP SCH (21:02)
[2016-08-04] MEDS: INSULIN GLARG HUMAN REC ANALOG SUBCUT SCH (21:47)
[2016-08-04] MEDS: diphenhydrAMINE 25 MG Tab PO PRN (23:17)
[2016-08-05] MEDS: Zolpidem 5 MG Tab PO PRN ×2 (01:55→21:36)
[2016-08-05] MEDS: Acetaminophen 325 MG Tab PO PRN ×4 (01:56→21:36)
[2016-08-05] MEDS: Omeprazole 20 MG Cap.CR PO SCH (06:16)
[2016-08-05] MEDS: Heparin Sodium 5,000 Units/ML Vial SUBCUT SCH ×3 (06:17→21:34)
[2016-08-05] MEDS: Insulin Aspart 100 Units/ML 3 ML Pen SUBCUT SCH ×6 (08:22→17:35)
[2016-08-05] MEDS: Aspirin 81 MG Tab.EC PO SCH (08:36)
[2016-08-05] MEDS: Polyethylene Glycol 3350 Powder 17 GM Packet PO SCH (08:36)
[2016-08-05] MEDS: Finasteride 5 MG Tab PO SCH (08:36)
[2016-08-05] MEDS: Hydroxychloroquine 200 MG Tab PO SCH (08:36)
[2016-08-05] MEDS: Ciprofloxacin 500 MG Tab PO SCH ×2 (08:36→21:36)
[2016-08-05] MEDS: Phenazopyridine 95 MG Tab PO SCH ×2 (08:37→21:36)
[2016-08-05] MEDS: Metoprolol Tartrate 25 MG Tab PO SCH ×2 (08:38→21:35)
[2016-08-05] MEDS: Cyclobenzaprine 10 MG Tab PO PRN ×2 (10:07→21:36)
[2016-08-05] MEDS: Menthol/Methyl Salicylate 85 GM Tube TOP PRN (12:52)
[2016-08-05] MEDS: Lidocaine 5% 700 MG Patch TOP SCH (21:31)
[2016-08-05] MEDS: INSULIN GLARG HUMAN REC ANALOG SUBCUT SCH (21:32)
[2016-08-05] MEDS: Niacin 500 MG Tab.ER PO SCH (21:35)
[2016-08-05] MEDS: Tamsulosin 0.4 MG Cap.ER PO SCH (21:35)
[2016-08-05] MEDS: traZODone 50 MG Tab PO SCH (21:36)
[2016-08-05] MEDS: Simvastatin 10 MG Tab PO SCH (21:36)
[2016-08-05] MEDS: traMADol 50 MG Tab PO PRN (22:47)
[2016-08-05] MEDS: diphenhydrAMINE 25 MG Tab PO PRN (22:47)
[2016-08-06] MEDS: Omeprazole 20 MG Cap.CR PO SCH (05:42)
[2016-08-06] MEDS: Heparin Sodium 5,000 Units/ML Vial SUBCUT SCH ×3 (05:44→22:07)
[2016-08-06] MEDS: traMADol 50 MG Tab PO PRN ×2 (07:52→16:39)
[2016-08-06] MEDS: Insulin Aspart 100 Units/ML 3 ML Pen SUBCUT SCH ×6 (07:53→17:24)
[2016-08-06] MEDS: Hydroxychloroquine 200 MG Tab PO SCH (08:48)
[2016-08-06] MEDS: Calcitriol 0.25 MCG Cap PO SCH (08:48)
[2016-08-06] MEDS: Finasteride 5 MG Tab PO SCH (08:48)
[2016-08-06] MEDS: Metoprolol Tartrate 25 MG Tab PO SCH ×2 (08:49→20:44)
[2016-08-06] MEDS: Phenazopyridine 95 MG Tab PO SCH ×2 (08:49→20:45)
[2016-08-06] MEDS: Cyclobenzaprine 10 MG Tab PO PRN ×2 (08:50→13:27)
[2016-08-06] MEDS: Ciprofloxacin 500 MG Tab PO SCH ×2 (08:50→20:41)
[2016-08-06] MEDS: Aspirin 81 MG Tab.EC PO SCH (08:50)
[2016-08-06] MEDS: Acetaminophen 325 MG Tab PO PRN ×2 (08:51→13:26)
[2016-08-06] MEDS: Polyethylene Glycol 3350 Powder 17 GM Packet PO SCH (08:53)
--- NOTE | 2016-08-06 12:33 | CR ---
Clinical history: 75-year-old diabetic male with history of low back surgery and now left pelvic henry n. Interpretation: AP, AP with frog lateral hips, and both obliques of the pelvis (4 films) confirm the presence of Rigoberto rods anchored in the lower lumbar spine. Symmetric spacing normal-appearing SI and hip joints without appreciable arthritic degenerative padgett ge. Homogeneous normal bone density. No pathologic skeletal lesion, pelvic or either hip fracture/disloc ation.
--- NOTE | 2016-08-06 13:32 | PN ---
DATE: 08/06/2016 SUBJECTIVE: Mr. Francisco Javier Jolly is a 75-year-old male with a medical history significant for hypertension, hyperlipidemia, type 2 diabetes mellitus, benign prostatic hypertrophy, diagnosed with lumbar disk disease with radiculopathy and underwent L3-S1 spinal fusion surgery on 07/14 at [facility] and is admitted to the swing bed here for continued physical therapy and occupational therapy. For the last 24 hours, the patient continues to have pain which is mostly on the left buttock region. Grades the pain as 8/10 in intensity, gets aggravated on ambulation, relieved with rest and pain medication, nonradiating type of pain, not associated with any nausea or vomiting. Denies any tingling or numbness to his left lower extremity. Denies any shooting pain to the left lower extremity. The patient was started on tramadol last night which helped his pain. REVIEW OF SYSTEMS: Cardiovascular respiratory, gastrointestinal, neurology, musculoskeletal, constitutional were all evaluated. PHYSICAL EXAMINATION: Vital Signs: Temperature of 98.3, pulse of 87, blood pressure 112/67, respiratory rate of 20, and saturating at 98% on room air. General Appearance: The patient is well oriented to time, place, and person. Follows commands spontaneously. Cardiovascular: S1 and S2 heard with normal intensity. No gallops. Respiratory: Clear to auscultation bilaterally. No wheeze. No crepitations. Abdomen: Soft. Bowel sounds positive. Nontender. No rigidity. Extremities: No edema in bilateral lower extremities. Neurology: No gross focal neurological deficits. LABORATORY DATA: Reviewed. Hemoglobin 10.8, hematocrit 33.4 from 08/03/2016. MEDICATIONS: Reviewed. Continue with: 1. Tylenol 650 every 4 hours as needed for pain. 2. Aspirin 81 mg daily. 3. Calcitriol 0.25 mcg Tuesday, Tuesday, and Tuesday. 4. Ciprofloxacin 500 mg twice a day. 5. Flexeril 5 mg p.o. 3 times a day as needed. 6. Proscar 5 mg daily. 7. Heparin 5000 subcutaneous q.8 hourly. 8. NovoLog 5 units 3 times a day with each meals. 9. Lactulose 20 g p.o. daily as needed. 10.Niacin 500 mg at bedtime. 11.Omeprazole 40 mg daily. 12.Flomax 0.8 mg at bedtime. 13.Simvastatin 20 mg at bedtime. 14.Ambien 10 mg at bedtime as needed. 15.Tramadol 50 mg every 8 hours as needed. ASSESSMENT: 1. Left-sided pelvic pain. 2. Status post L3-S1 spinal fusion surgery. 3. Hypertension. 4. Hyperlipidemia. 5. Type 2 diabetes mellitus, uncontrolled. 6. Hyperlipidemia. 7. Benign prostatic hypertrophy. 8. History of urinary retention. PLAN: 1. Pain. The patient is complaining of increasing pain to the left pelvic region, mostly on the trochanteric site, unsure if the patient has any trochanteric bursitis, unsure if the patient has any fracture, though this is less likely. In any case, we will obtain a pelvic x-ray for further evaluation. Continue physical therapy and occupational therapy. Added tramadol for better pain control, after which his pain seems to be improving. Continue the same. Continue with Tylenol as needed for pain control. 2. Urinary retention. The patient required Andrews catheter placement. Continue with Flomax. 3. Type 2 diabetes mellitus, uncontrolled. We will have him on Levemir insulin. Continue with NovoLog insulin, have him on supplemental scale insulin as needed for additional coverage of his blood glucose. 4. Urinary tract infection. The patient had urinary tract infection secondary to indwelling catheter placement on this admission and was noted to have gram-negative pallavi. He is currently on ciprofloxacin, continue the same. 5. Hypertension, in acceptable range. Continue with current antihypertensive medications. 6. Spinal surgery. The patient had spinal surgery involving L3-S1 fusion surgery on 07/14. He remains stable for now. Continue physical therapy and occupational therapy. 7. Discussed with family members at bedside regarding the plan of care. [facility] /[id number] MTDD
[2016-08-06] MEDS: Insulin Detemir 100 Units/ML 3 ML Pen SUBCUT SCH (17:35)
[2016-08-06] MEDS: Lidocaine 5% 700 MG Patch TOP SCH (20:42)
[2016-08-06] MEDS: Tamsulosin 0.4 MG Cap.ER PO SCH (20:42)
[2016-08-06] MEDS: traZODone 50 MG Tab PO SCH (20:45)
[2016-08-06] MEDS: Niacin 500 MG Tab.ER PO SCH (20:45)
[2016-08-06] MEDS: Simvastatin 10 MG Tab PO SCH (20:46)
[2016-08-06] MEDS: INSULIN GLARG HUMAN REC ANALOG SUBCUT SCH (21:14)
[2016-08-06] MEDS: Zolpidem 5 MG Tab PO PRN (22:06)
[2016-08-07] MEDS: Omeprazole 20 MG Cap.CR PO SCH (05:42)
[2016-08-07] MEDS: Heparin Sodium 5,000 Units/ML Vial SUBCUT SCH ×3 (05:45→21:50)
[2016-08-07] MEDS: Insulin Aspart 100 Units/ML 3 ML Pen SUBCUT SCH ×6 (08:14→17:24)
[2016-08-07] MEDS: traMADol 50 MG Tab PO PRN ×2 (08:14→23:49)
[2016-08-07] MEDS: Finasteride 5 MG Tab PO SCH (08:47)
[2016-08-07] MEDS: Hydroxychloroquine 200 MG Tab PO SCH (08:48)
[2016-08-07] MEDS: Ciprofloxacin 500 MG Tab PO SCH ×2 (08:48→21:19)
[2016-08-07] MEDS: Aspirin 81 MG Tab.EC PO SCH (08:48)
[2016-08-07] MEDS: Metoprolol Tartrate 25 MG Tab PO SCH ×2 (08:48→21:17)
[2016-08-07] MEDS: Polyethylene Glycol 3350 Powder 17 GM Packet PO SCH (08:49)
[2016-08-07] MEDS: Insulin Detemir 100 Units/ML 3 ML Pen SUBCUT SCH (12:54)
[2016-08-07] MEDS: Acetaminophen 325 MG Tab PO PRN (12:56)
[2016-08-07] MEDS: Cyclobenzaprine 10 MG Tab PO PRN (12:57)
[2016-08-07] MEDS: Lidocaine 5% 700 MG Patch TOP SCH (21:15)
[2016-08-07] MEDS: Tamsulosin 0.4 MG Cap.ER PO SCH (21:18)
[2016-08-07] MEDS: traZODone 50 MG Tab PO SCH (21:18)
[2016-08-07] MEDS: Zolpidem 5 MG Tab PO PRN (21:18)
[2016-08-07] MEDS: Niacin 500 MG Tab.ER PO SCH (21:19)
[2016-08-07] MEDS: Simvastatin 10 MG Tab PO SCH (21:20)
[2016-08-07] MEDS: INSULIN GLARG HUMAN REC ANALOG SUBCUT SCH (21:48)
[2016-08-08] MEDS: Omeprazole 20 MG Cap.CR PO SCH (05:49)
[2016-08-08] MEDS: Heparin Sodium 5,000 Units/ML Vial SUBCUT SCH ×3 (05:50→22:16)
[2016-08-08] MEDS: Insulin Aspart 100 Units/ML 3 ML Pen SUBCUT SCH ×6 (08:16→17:51)
[2016-08-08] MEDS: Hydroxychloroquine 200 MG Tab PO SCH (08:35)
[2016-08-08] MEDS: Finasteride 5 MG Tab PO SCH (08:35)
[2016-08-08] MEDS: Aspirin 81 MG Tab.EC PO SCH (08:35)
[2016-08-08] MEDS: Ciprofloxacin 500 MG Tab PO SCH ×2 (08:35→22:12)
[2016-08-08] MEDS: Polyethylene Glycol 3350 Powder 17 GM Packet PO SCH (08:36)
[2016-08-08] MEDS: Metoprolol Tartrate 25 MG Tab PO SCH ×2 (08:36→22:27)
[2016-08-08] MEDS: traMADol 50 MG Tab PO PRN ×2 (09:06→16:41)
[2016-08-08] MEDS: Cyclobenzaprine 10 MG Tab PO PRN ×2 (16:40→22:30)
[2016-08-08] MEDS: Tamsulosin 0.4 MG Cap.ER PO SCH (22:12)
[2016-08-08] MEDS: Niacin 500 MG Tab.ER PO SCH (22:13)
[2016-08-08] MEDS: traZODone 50 MG Tab PO SCH (22:14)
[2016-08-08] MEDS: Lidocaine 5% 700 MG Patch TOP SCH (22:15)
[2016-08-08] MEDS: Simvastatin 10 MG Tab PO SCH (22:15)
[2016-08-08] MEDS: INSULIN GLARG HUMAN REC ANALOG SUBCUT SCH (22:28)
[2016-08-08] MEDS: Acetaminophen 325 MG Tab PO PRN (22:29)
[2016-08-09] MEDS: Heparin Sodium 5,000 Units/ML Vial SUBCUT SCH ×3 (05:19→21:44)
[2016-08-09] MEDS: Omeprazole 20 MG Cap.CR PO SCH (05:19)
[2016-08-09] MEDS: Polyethylene Glycol 3350 Powder 17 GM Packet PO SCH (08:53)
[2016-08-09] MEDS: Insulin Aspart 100 Units/ML 3 ML Pen SUBCUT SCH ×6 (08:53→17:45)
[2016-08-09] MEDS: Finasteride 5 MG Tab PO SCH (08:54)
[2016-08-09] MEDS: Metoprolol Tartrate 25 MG Tab PO SCH ×2 (08:54→21:37)
[2016-08-09] MEDS: Ciprofloxacin 500 MG Tab PO SCH (08:55)
[2016-08-09] MEDS: Calcitriol 0.25 MCG Cap PO SCH (08:55)
[2016-08-09] MEDS: Hydroxychloroquine 200 MG Tab PO SCH (08:55)
[2016-08-09] MEDS: Aspirin 81 MG Tab.EC PO SCH (08:55)
[2016-08-09] MEDS: traMADol 50 MG Tab PO PRN ×2 (09:01→21:39)
[2016-08-09] MEDS: Cyclobenzaprine 10 MG Tab PO PRN (09:01)
[2016-08-09] MEDS: Acetaminophen 325 MG Tab PO PRN (16:01)
[2016-08-09] MEDS: traZODone 50 MG Tab PO SCH (21:37)
[2016-08-09] MEDS: Niacin 500 MG Tab.ER PO SCH (21:38)
[2016-08-09] MEDS: Tamsulosin 0.4 MG Cap.ER PO SCH (21:38)
[2016-08-09] MEDS: Simvastatin 10 MG Tab PO SCH (21:40)
[2016-08-09] MEDS: Lidocaine 5% 700 MG Patch TOP SCH (21:41)
[2016-08-09] MEDS: INSULIN GLARG HUMAN REC ANALOG SUBCUT SCH (21:43)
[2016-08-10] MEDS: Acetaminophen 325 MG Tab PO PRN ×3 (00:55→19:49)
[2016-08-10] MEDS: Menthol/Methyl Salicylate 85 GM Tube TOP PRN ×2 (00:57→18:19)
[2016-08-10] MEDS: Heparin Sodium 5,000 Units/ML Vial SUBCUT SCH ×3 (06:12→21:51)
[2016-08-10] MEDS: Omeprazole 20 MG Cap.CR PO SCH (06:12)
[2016-08-10] MEDS: Insulin Aspart 100 Units/ML 3 ML Pen SUBCUT SCH ×6 (08:30→17:30)
[2016-08-10] MEDS: Aspirin 81 MG Tab.EC PO SCH (09:10)
[2016-08-10] MEDS: Polyethylene Glycol 3350 Powder 17 GM Packet PO SCH (09:10)
[2016-08-10] MEDS: traMADol 50 MG Tab PO PRN ×2 (09:11→17:05)
[2016-08-10] MEDS: Metoprolol Tartrate 25 MG Tab PO SCH ×2 (09:11→21:50)
[2016-08-10] MEDS: Finasteride 5 MG Tab PO SCH (09:11)
[2016-08-10] MEDS: Hydroxychloroquine 200 MG Tab PO SCH (09:11)
[2016-08-10] MEDS: Cyclobenzaprine 10 MG Tab PO PRN ×2 (09:12→21:56)
[2016-08-10] MEDS: Niacin 500 MG Tab.ER PO SCH (21:50)
[2016-08-10] MEDS: traZODone 50 MG Tab PO SCH (21:50)
[2016-08-10] MEDS: Simvastatin 10 MG Tab PO SCH (21:51)
[2016-08-10] MEDS: Lidocaine 5% 700 MG Patch TOP SCH (21:51)
[2016-08-10] MEDS: Tamsulosin 0.4 MG Cap.ER PO SCH (21:51)
[2016-08-10] MEDS: INSULIN GLARG HUMAN REC ANALOG SUBCUT SCH (22:02)
[2016-08-11] MEDS: Heparin Sodium 5,000 Units/ML Vial SUBCUT SCH ×3 (05:48→22:08)
[2016-08-11] MEDS: Omeprazole 20 MG Cap.CR PO SCH (05:48)
[2016-08-11] MEDS: Insulin Aspart 100 Units/ML 3 ML Pen SUBCUT SCH ×6 (08:17→17:36)
[2016-08-11] MEDS: Hydroxychloroquine 200 MG Tab PO SCH (09:23)
[2016-08-11] MEDS: Finasteride 5 MG Tab PO SCH (09:23)
[2016-08-11] MEDS: Calcitriol 0.25 MCG Cap PO SCH (09:23)
[2016-08-11] MEDS: Aspirin 81 MG Tab.EC PO SCH (09:24)
[2016-08-11] MEDS: Metoprolol Tartrate 25 MG Tab PO SCH ×2 (09:24→20:35)
[2016-08-11] MEDS: traMADol 50 MG Tab PO PRN ×2 (09:25→22:08)
[2016-08-11] MEDS: Cyclobenzaprine 10 MG Tab PO PRN (09:26)
[2016-08-11] MEDS: Polyethylene Glycol 3350 Powder 17 GM Packet PO SCH (09:26)
[2016-08-11] MEDS: Lidocaine 5% 700 MG Patch TOP SCH (20:31)
[2016-08-11] MEDS: Tamsulosin 0.4 MG Cap.ER PO SCH (20:33)
[2016-08-11] MEDS: Niacin 500 MG Tab.ER PO SCH (20:34)
[2016-08-11] MEDS: Simvastatin 10 MG Tab PO SCH (20:36)
[2016-08-11] MEDS: traZODone 50 MG Tab PO SCH (20:36)
[2016-08-11] MEDS: INSULIN GLARG HUMAN REC ANALOG SUBCUT SCH (21:34)
[2016-08-12] MEDS: Omeprazole 20 MG Cap.CR PO SCH (05:46)
[2016-08-12] MEDS: Heparin Sodium 5,000 Units/ML Vial SUBCUT SCH ×3 (05:48→21:02)
[2016-08-12] MEDS: Insulin Aspart 100 Units/ML 3 ML Pen SUBCUT SCH ×6 (07:16→17:55)
[2016-08-12] MEDS: Aspirin 81 MG Tab.EC PO SCH (09:47)
[2016-08-12] MEDS: Hydroxychloroquine 200 MG Tab PO SCH (09:48)
[2016-08-12] MEDS: Metoprolol Tartrate 25 MG Tab PO SCH ×2 (09:48→21:02)
[2016-08-12] MEDS: Polyethylene Glycol 3350 Powder 17 GM Packet PO SCH (09:48)
[2016-08-12] MEDS: Finasteride 5 MG Tab PO SCH (09:49)
[2016-08-12] MEDS: Tamsulosin 0.4 MG Cap.ER PO SCH (21:00)
[2016-08-12] MEDS: traZODone 50 MG Tab PO SCH (21:00)
[2016-08-12] MEDS: Simvastatin 10 MG Tab PO SCH (21:00)
[2016-08-12] MEDS: Niacin 500 MG Tab.ER PO SCH (21:01)
[2016-08-12] MEDS: traMADol 50 MG Tab PO PRN (21:01)
[2016-08-12] MEDS: Lidocaine 5% 700 MG Patch TOP SCH (21:02)
[2016-08-12] MEDS: INSULIN GLARG HUMAN REC ANALOG SUBCUT SCH (21:06)
[2016-08-13] MEDS: Menthol/Methyl Salicylate 85 GM Tube TOP PRN (00:11)
[2016-08-13] MEDS: Cyclobenzaprine 10 MG Tab PO PRN (00:11)
[2016-08-13] MEDS: Omeprazole 20 MG Cap.CR PO SCH (06:07)
[2016-08-13] MEDS: Heparin Sodium 5,000 Units/ML Vial SUBCUT SCH (06:07)
[2016-08-13] MEDS: Insulin Aspart 100 Units/ML 3 ML Pen SUBCUT SCH ×2 (08:08→08:25)
[2016-08-13] MEDS: Calcitriol 0.25 MCG Cap PO SCH (08:26)
[2016-08-13] MEDS: Aspirin 81 MG Tab.EC PO SCH (08:26)
[2016-08-13] MEDS: Polyethylene Glycol 3350 Powder 17 GM Packet PO SCH (08:27)
[2016-08-13] MEDS: Hydroxychloroquine 200 MG Tab PO SCH (08:27)
[2016-08-13] MEDS: Finasteride 5 MG Tab PO SCH (08:27)
[2016-08-13] MEDS: traMADol 50 MG Tab PO PRN (08:27)
[2016-08-13] MEDS: Metoprolol Tartrate 25 MG Tab PO SCH (08:34)
[2016-08-13 08:37] VITALS: BP 131/69
[2016-08-13] MEDS: Acetaminophen 325 MG Tab PO PRN (10:46)
--- NOTE | 2016-08-13 12:57 | PN ---
DATE: 08/13/2016 SUBJECTIVE: The patient continues to do well, and the patient has been able to urinate without any recurrence of the urinary retention. The patient denies any chest pain, shortness of breath, or any other complaints. OBJECTIVE: Vital Signs: Blood pressure is 131/69, pulse of 87, respirations 20, temperature of 96. Heart: Regular rate and rhythm. No gallops. No rubs. Lungs: Equal bilaterally. No crackles. No wheezing. Abdomen: Moderately obese, soft, nontender. Extremities: Negative for any significant pedal edema. No calf tenderness. MEDICATIONS: Reviewed. PLAN: We will discharge the patient home today, and we will continue with outpatient PT. I will see him for followup in about 10-14 days. CONDITION ON DISCHARGE: Improved. [facility] /[id number]
--- NOTE | 2016-08-13 13:01 | DISCH ---
FINAL DIAGNOSES: 1. Status post L3-S1 vertebral fusion on July 14. 2. Urinary retention secondary to pain medication. 3. Type 2 diabetes mellitus on insulin. 4. Hypertension. 5. Constipation. BRIEF HISTORY OF PRESENT ILLNESS: Please see H and P. HOSPITAL COURSE: The patient was admitted to swing bed and hospital course was complicated by confusion and delirium because of the pain medication and also the patient had problems with constipation and urinary retention. A Andrews catheter was inserted. The patient was given some stool softener and laxatives and constipation improved as well as the delirium, but he continued to have problems with urinary retention and a trial of removing the Andrews catheter failed the first time. The patient's pain medication was discontinued as well as the Benadryl and because of the anticholinergic side effects of it, so trial with removing the Andrews catheter was done now with success and the patient able to void well. While he was in swing bed, PT and OT have been working with the patient and the patient overall has did well. He was then discharged and condition on discharge improved. DISCHARGE INSTRUCTIONS: See orders and follow up with me in 10-14 days and follow up with his surgeon at [place] as scheduled. [facility] /[id number]
== END 2016-08-13 12:00 | disposition home or self-care (01) | DRG 949 ==
LOC: DL.MS 14:34
PROVIDERS: ADMIT Internal Medicine; ATTEND Internal Medicine
PROC: 0T2BX0Z Change Drainage Device in Bladder, External Approach (ICD-10-PCS; principal; 2016-07-28)
DX: Z48.89 Encounter for other specified surgical aftercare (principal); N39.0 Urinary tract infection, site not specified; R33.9 Retention of urine, unspecified; R41.0 Disorientation, unspecified; T50.995A Adverse effect of other drugs, medicaments and biological substances, initial encounter; Y92.230 Patient room in hospital as the place of occurrence of the external cause; N40.1 Benign prostatic hyperplasia with lower urinary tract symptoms; E11.9 Type 2 diabetes mellitus without complications; I10 Essential (primary) hypertension; K59.00 Constipation, unspecified; E78.00 Pure hypercholesterolemia, unspecified; R10.2 Pelvic and perineal pain; Z79.4 Long term (current) use of insulin; Z88.8 Allergy status to other drugs, medicaments and biological substances; Z79.82 Long term (current) use of aspirin; Z79.899 Other long term (current) drug therapy; Z87.891 Personal history of nicotine dependence; G47.00 Insomnia, unspecified
CPT/HCPCS: 36415; 51702; 72190; 74176; 80048; 81001; 82962; 85025; 85027; 87086; 87088; 87186; 97110-GO; 97110-GP; 97116-GP; 97161-GP; 97165-GO; 97530-GO; A9270-GY; J1630; J1644; J1815-GY; J2060; J7030; J7050; S0166

== ENCOUNTER 2016-10-03 15:43 | Emergency (ER) | payer MEDICARE, OTHER ==
[2016-10-03 16:01] VITALS: BP 117/68
--- NOTE | 2016-10-03 16:06 | EDM.PDOC ---
ED HPI GENERAL MEDICAL PROBLEM - General Chief Complaint: Genitourinary Problem Stated Complaint: STOMACH PAIN Time Seen by Provider: 10/03/16 16:01 Source of Information: Reports: Patient, Family () History Limitations: Reports: No Limitations - History of Present Illness INITIAL COMMENTS - FREE TEXT/NARRATIVE: 75 yo white male c/o low mid abdomen pain for few days. Pt. recently had back surgery and had patel placed. Pt. state recent uti after patel. Pt. denies fever or chills Lower Abdomen Pain Score (Numeric/FACES): 8 - Related Data Allergies Allergy/AdvReac Type Severity Reaction Status Date / Time aspirin Allergy Rash Verified 10/03/16 16:01 atorvastatin [From Lipitor] Allergy Joint Pain Verified 10/03/16 16:01 bacitracin [From Polysporin] Allergy Cannot Verified 10/03/16 16:01 Remember polymyxin B sulfate Allergy Cannot Verified 10/03/16 16:01 [From Polysporin] Remember salicylates Allergy Rash Verified 10/03/16 16:01 calcium containing cmpd Allergy Cannot Uncoded 10/03/16 16:01 Remember Home Meds: Home Meds RX: Aspirin [Ecotrin] 81 mg PO DAILY 09/19/13 [History] RX: Hydroxychloroquine Sulfate [Plaquenil] 200 mg PO DAILY 09/19/13 [History] RX: Insulin Glarg,Human.Rec.Analog [Lantus Solostar] 22 units SQ BEDTIME [History] RX: Niacin 500 mg PO BEDTIME 09/19/13 [History] RX: Simvastatin [Zocor] 20 mg PO BEDTIME 09/19/13 [History] RX: Tamsulosin HCl 0.8 mg PO BEDTIME 09/19/13 [History] RX: traZODone 50 mg PO BEDTIME 09/19/13 [History] RX: Calcitriol [Rocaltrol] 0.25 mcg PO .MO.TUE.Tue03/11/15 [History] RX: Metoprolol Tartrate 25 mg PO BID 03/11/15 [History] RX: Omeprazole 40 mg PO ACBREAKFAST 03/11/15 [History] RX: Acetaminophen/Diphenhydramine [Tylenol Pm Ex-Strength Caplet] 1 tab PO BEDTIME PRN 07/20/16 [History] RX: Finasteride [Proscar] 5 mg PO DAILY 07/20/16 [History] RX: Insulin Aspart [NovoLOG] 15 units SUBCUT ASDIRECTED 07/20/16 [History] RX: Triamcinolone Acetonide [Triamcinolone Acetonide 0.1% Crm] 1 applic TOP TID PRN 07/20/16 [History] RX: Acetaminophen/Diphenhydramine [Tylenol Pm Ex-Strength Caplet] 1 tab PO BEDTIME PRN 07/23/16 [History] RX: Acetaminophen [Tylenol] 650 mg PO Q4H PRN #30 tablet 08/13/16 [Rx] RX: Cyclobenzaprine [Flexeril] 5 mg PO TID PRN #30 tablet 08/13/16 [Rx] RX: Menthol/Methyl Salicylate [Icy Hot Cream] 0 gm TOP Q3H PRN #1 tube 08/13/16 [Rx] Acetaminophen [Tylenol Extra Strength] 500 mg PO ASDIRECTED PRN 10/03/16 [ History] Calcium Carbonate/Vitamin D3 [Calcium 600 + Vit D 400 Softgl] 1 cap PO DAILY [History] Melatonin/Pyridoxine HCl (B6) [Melatonin 10 mg Tablet] 10/03/16 [History] Melatonin/Pyridoxine HCl (B6) [Melatonin 5 mg Tablet] 10 mg PO BEDTIME 10/03/16 [History] Past Medical History HEENT History: Reports: Cataract, Impaired Vision Cardiovascular History: Reports: High Cholesterol, Hypertension Respiratory History: Reports: Bronchitis, Recurrent Gastrointestinal History: Reports: Diverticulosis, GERD, Hemorrhoids Genitourinary History: Reports: BPH, Renal Disease Other Genitourinary History: chronic renal insufficiency Musculoskeletal History: Reports: Back Pain, Chronic, Fracture Other Musculoskeletal History: left radius and ulna Psychiatric History: Reports: Addiction Other Psychiatric History: past history of etoh abuse Endocrine/Metabolic History: Reports: Diabetes, Type II Dermatologic History: Reports: Other (See Below) Other Dermatologic History: precancerous lesions to face - Infectious Disease History Infectious Disease History: Reports: Chicken Pox, Measles - Past Surgical History HEENT Surgical History: Reports: Cataract Surgery, Tonsillectomy GI Surgical History: Reports: Appendectomy, Colonoscopy Neurological Surgical History: Reports: Laminectomy, Spinal Fusion Musculoskeletal Surgical History: Reports: Carpal Tunnel, Shoulder Replacement, Other (See Below) Other Musculoskeletal Surgeries/Procedures:: back surgery Social & Family History - Family History Family Medical History: Noncontributory - Tobacco Use Smoking Status *Q: Former Smoker Years of Tobacco use: 52 Packs/Tins Daily: 2 Used Tobacco, but Quit: Yes Month Tobacco Last Used: 10 years ago - Caffeine Use Caffeine Use: Reports: Coffee - Alcohol Use Days Per Week of Alcohol Use: 0 - Recreational Drug Use Recreational Drug Use: No Drug Use in Last 12 Months: No ED ROS GENERAL - Review of Systems Review Of Systems: See Below Constitutional: Reports: No Symptoms HEENT: Reports: No Symptoms Respiratory: Reports: No Symptoms Cardiovascular: Reports: No Symptoms Endocrine: Reports: No Symptoms GI/Abdominal: Reports: Abdominal Pain (low mid( supra pubic)) : Reports: No Symptoms Musculoskeletal: Reports: No Symptoms Skin: Reports: No Symptoms Neurological: Reports: No Symptoms Psychiatric: Reports: No Symptoms Hematologic/Lymphatic: Reports: No Symptoms Immunologic: Reports: No Symptoms ED EXAM, GI/ABD - Physical Exam Exam: See Below Exam Limited By: No Limitations General Appearance: Alert, WD/WN, No Apparent Distress Eyes: Bilateral: EOMI Ears: Normal External Exam, Hearing Loss Nose: Normal Inspection Throat/Mouth: Normal Inspection Head: Atraumatic Neck: Normal Inspection Respiratory/Chest: No Respiratory Distress Cardiovascular: Normal Peripheral Pulses GI/Abdominal Exam: Normal Bowel Sounds, Tender (low mid - suprapubic area) Extremities: Normal Inspection Neurological: Alert, Oriented Psychiatric: Normal Affect Skin Exam: Warm Lymphatic: No Adenopathy Course - Vital Signs Last Recorded V/S: Last Vital Signs Temp 36.4 C 10/03/16 15:50 Pulse 92 10/03/16 15:50 Resp 16 10/03/16 15:50 BP 117/68 10/03/16 15:50 Pulse Ox 99 10/03/16 15:50 - Orders/Labs/Meds Orders: Active Orders 24 hr Category Date Time Status Abdomen 2V AP Flat Upright [CR] Urgent Exams 10/03/16 16:51 Ordered Labs: Laboratory Tests 10/03/16 Range/Units 15:51 Urine Color Yellow (YELLOW) Urine Appearance Clear (CLEAR) Urine pH 6.0 (5.0-9.0) Ur Specific Lenore 1.015 (1.005-1.030) Urine Protein Trace H (NEGATIVE) Urine Glucose (UA) Negative (NEGATIVE) Urine Ketones Negative (NEGATIVE) Urine Occult Blood Negative (NEGATIVE) Urine Nitrite Negative (NEGATIVE) Urine Bilirubin Negative (NEGATIVE) Urine Urobilinogen 0.2 (0.2-1.0) mg/dL Ur Leukocyte Esterase Negative (NEGATIVE) Urine RBC 0-5 /HPF Urine WBC 0-5 (0-5/HPF) /HPF Ur Epithelial Cells Few /HPF Amorphous Sediment Few (0/HPF) /HPF Urine Mucus Rare /LPF Departure - Departure Time of Disposition: 17:21 Disposition: Home, Self-Care 01 Condition: Fair Clinical Impression: Constipation by delayed colonic transit - Discharge Information Forms: ED Department Discharge Additional Instructions: Increase intake of Water 6-8 glasses each day Increase intake if FIBER ( Fruits / Vegetables) This evening : 1) Drink / Sip one bottle of Magnesium Citrate ( buy OTC) 2) Drink 3 glasses of water IF NO BOWEL MOVEMENT AFTER 4 HOURS THEN 3) Drink one glass of Prune Juice F/U w/ PCP - My Orders Last 24 Hours: My Active Orders 10/03/16 16:51 Abdomen 2V AP Flat Upright [CR] Urgent - Assessment/Plan Last 24 Hours: My Active Orders 10/03/16 16:51 Abdomen 2V AP Flat Upright [CR] Urgent
== END 2016-10-03 17:33 | disposition home or self-care (01) ==
LOC: DL.ED 15:43
DX: K59.01 Slow transit constipation (principal); E78.00 Pure hypercholesterolemia, unspecified; K21.9 Gastro-esophageal reflux disease without esophagitis; I12.9 Hypertensive chronic kidney disease with stage 1 through stage 4 chronic kidney disease, or unspecified chronic kidney disease; N18.9 Chronic kidney disease, unspecified; E11.9 Type 2 diabetes mellitus without complications; Z98.49 Cataract extraction status, unspecified eye; Z98.890 Other specified postprocedural states; Z90.49 Acquired absence of other specified parts of digestive tract; Z87.891 Personal history of nicotine dependence; Z88.6 Allergy status to analgesic agent; Z88.1 Allergy status to other antibiotic agents; Z88.2 Allergy status to sulfonamides; Z88.8 Allergy status to other drugs, medicaments and biological substances; Z79.82 Long term (current) use of aspirin; Z79.4 Long term (current) use of insulin
CPT/HCPCS: 74020; 81001; 99282; 99284

== ENCOUNTER 2017-01-04 06:27 | Day surgery (SDC) | payer MEDICARE, OTHER ==
[~2017-01-04 06:27] MED LIST: Midazolam 1 MG/ML 2 ML SDV ONE; fentaNYL 100 MCG/2 ML SDV ONE
[2017-01-04] MEDS ORDERED: Midazolam 1 MG/ML 2 ML SDV IV ONE ×6 (06:28→07:38)
[2017-01-04] MEDS ORDERED: fentaNYL 100 MCG/2 ML SDV IV ONE ×3 (06:28→07:32)
[2017-01-04] MEDS ORDERED: Sodium Chloride 0.9% 10 ML Syringe FLUSH PRN (07:00)
[2017-01-04] MEDS ORDERED: Dextrose 5%-0.45% NaCl 1,000 ML IV SCH (07:00)
--- NOTE | 2017-01-04 08:13 | OR ---
DATE: 01/04/2017 PROCEDURE: Total colonoscopy. INSTRUMENT USED: PCF-H180 AL Olympus video colonoscope. PREMEDICATIONS: Fentanyl 100 mcg intravenous, Versed 3 mg intravenous. Nasal O2 cannula. The procedure was done under pulse oximetry, BP recording, and surveillance monitor. INDICATION: The patient with recent left-sided lower abdominal pain and CT suggestive of rectal mass. Colonoscopic examination is done for detection of any polypoid lesions and removal, endoscopic hemostasis therapy if needed. DESCRIPTION OF PROCEDURE: Initial rectal exam was unremarkable. Rigid anoscopy was normal. The colonoscope was passed with ease. Numerous scattered diverticula were noted in the distal left colon along with deformity. There was quite a bit of fecal material that had to be aspirated. The scope was passed with ease up to the ileocecal area. Photographs were taken of the normal-appearing cecum identified by appendiceal orifice and double-bulged ileocecal folds. No bleeding was noted from any of the visualized areas at the commencement of the examination. No stricture. No vascular ectasia. No large isolated ulcerations seen. No evidence of diffuse inflammatory bowel disease in the form of friability, contact bleeding, or ulcerations. No polyp or tumor mass identified. Probing the proximal sides of folds and flexures, using adequate distention and clearing up the stool material, withdrawal of the scope was made. Cecum to rectum time over 6 minutes. No bleeding was noted from any of the visualized areas at the completion of examination. IMPRESSION: Diverticulosis. The patient tolerated the procedure well. [facility] /[id number]
[2017-01-04 10:53] VITALS: BP 154/78
== END 2017-01-04 09:45 | disposition home or self-care (01) ==
LOC: DL.ENDO 06:27
PROVIDERS: ATTEND Internal Medicine Gastroenterology
DX: K57.30 Diverticulosis of large intestine without perforation or abscess without bleeding (principal); I12.9 Hypertensive chronic kidney disease with stage 1 through stage 4 chronic kidney disease, or unspecified chronic kidney disease; E11.22 Type 2 diabetes mellitus with diabetic chronic kidney disease; N18.9 Chronic kidney disease, unspecified; Z88.8 Allergy status to other drugs, medicaments and biological substances; E66.9 Obesity, unspecified; Z68.30 Body mass index [BMI] 30.0-30.9, adult
CPT/HCPCS: 45378; J2250; J3010; J7042

== ENCOUNTER 2018-06-19 09:36 | Inpatient (IN) | payer MEDICARE, OTHER ==
--- NOTE | 2018-06-19 18:37 | PCM.HP ---
H&P History of Present Illness - General Date of Service: 06/19/18 Admit Problem/Dx: Debility Source of Information: Patient, Family - History of Present Illness Initial Comments - Free Text/Narative: 77 yo M with PMH of DM2, normal pressure hydrocephalus, cervical spinal stenosis , CKD 3, GERD, HLD who was transferred to our facility for a swing bed stay after having cervical spine surgery at the [facility]. I saw and examined the patient at the bedside He has URTI symptoms: sniffles, coryza, cough No chest pain, no abdominal pain Back Pain Score (Numeric/FACES): 5 - Related Data Allergies/Adverse Reactions: Allergies Allergy/AdvReac Type Severity Reaction Status Date / Time aspirin Allergy Rash Verified 06/19/18 11:18 bacitracin [From Polysporin] Allergy Cannot Verified 06/19/18 11:18 Remember polymyxin B sulfate Allergy Cannot Verified 06/19/18 11:18 [From Polysporin] Remember salicylates Allergy Rash Verified 06/19/18 11:18 atorvastatin [From Lipitor] AdvReac Joint Pain Verified 06/19/18 11:18 calcium containing cmpd Allergy Cannot Uncoded 01/04/17 06:58 Remember Home Medications: Home Meds Aspirin [Ecotrin] 81 mg PO BEDTIME 09/19/13 [History] Hydroxychloroquine Sulfate [Plaquenil] 200 mg PO BEDTIME 09/19/13 [History] Niacin 500 mg PO DAILY 09/19/13 [History] Simvastatin [Zocor] 20 mg PO BEDTIME 09/19/13 [History] Tamsulosin HCl 0.8 mg PO BEDTIME 09/19/13 [History] Calcitriol [Rocaltrol] 0.25 mcg PO .MO.TUE.Tue03/11/15 [History] Metoprolol Tartrate 25 mg PO BID 03/11/15 [History] Omeprazole 40 mg PO ACBREAKFAST 03/11/15 [History] Insulin Aspart [NovoLOG] 6 units SUBCUT TIDMEALS 07/20/16 [History] Acetaminophen [Tylenol Extra Strength] 500 mg PO Q6HR PRN 10/03/16 [History] Melatonin/Pyridoxine HCl (B6) [Melatonin 5 mg Tablet] 10 mg PO BEDTIME 10/03/16 [History] Finasteride 5 mg PO BEDTIME 01/03/17 [History] Acetaminophen/HYDROcodone [Kinney 325-5 MG] 1 tab PO Q4HR PRN 06/19/18 [History] DULoxetine [Cymbalta] 30 mg PO DAILY 06/19/18 [History] Diazepam [Valium] 2 mg PO TID PRN 06/19/18 [History] Gabapentin [Neurontin] 400 mg PO BEDTIME 06/19/18 [History] Insulin Glarg,Human.Rec.Analog [Lantus] 18 unit SUBCUT BEDTIME 06/19/18 [History ] traMADol [Ultram] 50 mg PO Q4HR PRN 06/19/18 [History] traZODone HCl [Trazodone HCl] 50 mg PO BEDTIME 06/19/18 [History] Past Medical History HEENT History: Reports: Cataract, Impaired Vision Other HEENT History: has hearing aids Cardiovascular History: Reports: High Cholesterol, Hypertension Respiratory History: Reports: Bronchitis, Recurrent Gastrointestinal History: Reports: Diverticulosis, GERD, Hemorrhoids Genitourinary History: Reports: BPH, Chronic Renal Insuffiency, Renal Disease Other Genitourinary History: prostate nodule-2017 Musculoskeletal History: Reports: Back Pain, Chronic, Fracture Other Musculoskeletal History: left radius and ulna Neurological History: Reports: None, Other (See Below) Other Neuro History: hydrocephalus 05/2018 Psychiatric History: Reports: Addiction, Suicidal Ideation Other Psychiatric History: past history of etoh abuse Endocrine/Metabolic History: Reports: Diabetes, Type II, Hyperparathyroidism Hematologic History: Reports: None Immunologic History: Reports: None Oncologic (Cancer) History: Reports: None Dermatologic History: Reports: Other (See Below) Other Dermatologic History: precancerous lesions to face - Infectious Disease History Infectious Disease History: Reports: Chicken Pox, Measles - Past Surgical History Head Surgeries/Procedures: Reports: None HEENT Surgical History: Reports: Cataract Surgery, Tonsillectomy Other HEENT Surgeries/Procedures: wisdon teeth extraction GI Surgical History: Reports: Appendectomy, Colonoscopy Other GI Surgeries/Procedures: colon surgery secondary to crush injury in remote past Neurological Surgical History: Reports: Laminectomy, Spinal Fusion Musculoskeletal Surgical History: Reports: Carpal Tunnel, Shoulder Replacement, Other (See Below) Other Musculoskeletal Surgeries/Procedures:: back surgery Social & Family History - Family History Family Medical History: Noncontributory - Tobacco Use Smoking Status *Q: Former Smoker Years of Tobacco use: 50 Packs/Tins Daily: 1.5 Used Tobacco, but Quit: Yes Month/Year Tobacco Last Used: 01/01/2015 - Caffeine Use Caffeine Use: Reports: Coffee - Recreational Drug Use Recreational Drug Use: No H&P Review of Systems - Review of Systems: Review Of Systems: See Below General: Reports: Other (coryza, URTI symptoms) HEENT: Reports: Hearing Changes (chronically hard of hearing) Pulmonary: Denies: Shortness of Breath Cardiovascular: Denies: Chest Pain Gastrointestinal: Reports: No Symptoms Genitourinary: Reports: No Symptoms Musculoskeletal: Denies: Neck Pain Psychiatric: Reports: No Symptoms Neurological: Reports: No Symptoms Exam - Exam Exam: See Below - Exam General: Alert, Oriented HEENT: Pupils Equal Neck: Supple, Trachea Midline Lungs: Clear to Auscultation, Normal Respiratory Effort Cardiovascular: Regular Rate, Regular Rhythm GI/Abdominal Exam: Normal Bowel Sounds, Soft, Non-Tender Skin: Warm Problem List Initiated/Reviewed/Updated: Yes Assessment/Plan Comment:: #Cervical stenosis s/p surgery PT/OT continue mzl relaxants PRN #URTI symptoms check flu screen if positive, start tamiflu symptomatic/supportive management #DM2 continue current home insulin regimen ISS, accuchecks, carb controlled diet #DVT ppx SC heparin
[2018-06-19] MEDS ORDERED: Acetaminophen/HYDROcodone 325-5 MG Tab PO PRN (18:40)
[2018-06-19] MEDS ORDERED: Acetaminophen 500 MG Tab PO PRN (18:40)
[2018-06-19] MEDS ORDERED: Diazepam 2 MG Tab PO PRN (18:40)
[2018-06-19] MEDS ORDERED: Codeine/guaiFENesin 100-10 MG/5 ML Syrup 5 ML Cup PO PRN (18:53)
[2018-06-19] MEDS: Aspirin 81 MG Tab.EC PO SCH (22:03)
[2018-06-19] MEDS: Tamsulosin 0.4 MG Cap.ER PO SCH (22:03)
[2018-06-19] MEDS: Metoprolol Tartrate 25 MG Tab PO SCH (22:04)
[2018-06-19] MEDS: Hydroxychloroquine 200 MG Tab PO SCH (22:04)
[2018-06-19] MEDS: Gabapentin 400 MG Cap PO SCH (22:05)
[2018-06-19] MEDS: Finasteride 5 MG Tab PO SCH (22:06)
[2018-06-19] MEDS: Simvastatin 10 MG Tab PO SCH (22:06)
[2018-06-19] MEDS: traZODone 50 MG Tab PO SCH (22:06)
[2018-06-19] MEDS: Insulin Glarg,Human.Rec.Analog 100 Unit/ML SUBCUT SCH (22:21)
[2018-06-20] MEDS: Omeprazole 20 MG Cap.CR PO SCH (06:11)
[2018-06-20] MEDS: Insulin Lispro 100 Units/ML 3 ML Vial SUBCUT SCH ×6 (09:56→18:07)
[2018-06-20] MEDS ORDERED: Sodium Chloride 0.9% 10 ML Syringe FLUSH PRN (10:52)
--- NOTE | 2018-06-20 11:48 | CR ---
Clinical history: 77-year-old male with cough and shortness of breath. Interpretation: (Upright AP portable chest) New evidence cervical spine fusion and right shoulder replacement compared to 28 July 2012 exam. Less than optimal inspiratory effort with platelike atelectasis left base. Normal cardiac silhouette and no cephalization of vascular flow, alveolar edema or dependent pleural effusion. No new lung mass, hilar lymphadenopathy or focal lobar pneumonia. No pneumothorax.
[2018-06-20] MEDS: Sodium Chloride 0.9% 1,000 ML IV SCH (11:57)
[2018-06-20] MEDS: Acetaminophen 325 MG Tab PO PRN (11:58)
[2018-06-20] MEDS: Niacin 500 MG Tab.ER PO SCH (11:58)
[2018-06-20] MEDS: DULoxetine 30 MG Cap PO SCH (11:59)
[2018-06-20] MEDS: Metoprolol Tartrate 25 MG Tab PO SCH ×2 (11:59→20:30)
[2018-06-20] MEDS: cefTRIAXone 1 GM in Sodium Chloride 0.9% 50 ML IV SCH (18:12)
[2018-06-20] MEDS: traZODone 50 MG Tab PO SCH (20:28)
[2018-06-20] MEDS: Tamsulosin 0.4 MG Cap.ER PO SCH (20:28)
[2018-06-20] MEDS: Aspirin 81 MG Tab.EC PO SCH (20:28)
[2018-06-20] MEDS: Simvastatin 10 MG Tab PO SCH (20:29)
[2018-06-20] MEDS: Hydroxychloroquine 200 MG Tab PO SCH (20:29)
[2018-06-20] MEDS: Finasteride 5 MG Tab PO SCH (20:30)
[2018-06-20] MEDS: Gabapentin 400 MG Cap PO SCH (20:30)
[2018-06-20] MEDS: MELATONIN PO SCH (20:32)
[2018-06-20] MEDS: LEMON BALM PO SCH (20:32)
[2018-06-20] MEDS: Insulin Glarg,Human.Rec.Analog 100 Unit/ML SUBCUT SCH (20:33)
[2018-06-21] MEDS: Sodium Chloride 0.9% 1,000 ML IV SCH (00:01)
[2018-06-21] MEDS: Omeprazole 20 MG Cap.CR PO SCH (06:00)
[2018-06-21 07:28] LABS: ANION GAP 14.2
[2018-06-21] MEDS: Calcitriol 0.25 MCG Cap PO SCH (08:50)
[2018-06-21] MEDS: Niacin 500 MG Tab.ER PO SCH (08:50)
[2018-06-21] MEDS: Metoprolol Tartrate 25 MG Tab PO SCH ×2 (08:50→21:37)
[2018-06-21] MEDS: DULoxetine 30 MG Cap PO SCH (08:51)
[2018-06-21] MEDS: Insulin Lispro 100 Units/ML 3 ML Vial SUBCUT SCH ×6 (08:51→18:10)
--- NOTE | 2018-06-21 08:59 | PCM.SN ---
- Free Text/Narrative Note: Patient was feeling weaker and less responsive yesterday. Labs showed leucocytosis and urinalysis was suggestive of UTI. He was started on IV ceftriaxone for UTI treatment. Follow up on urine cx and transition to oral abx when sensitivities are available.
[2018-06-21] MEDS ORDERED: Sodium Chloride 0.9% 10 ML Syringe FLUSH PRN (10:33)
[2018-06-21] MEDS: traMADol 50 MG Tab PO PRN (13:53)
[2018-06-21] MEDS: cefTRIAXone 1 GM in Sodium Chloride 0.9% 50 ML IV SCH (16:59)
[2018-06-21] MEDS: Lidocaine 5% 700 MG Patch TOP PRN (17:00)
[2018-06-21] MEDS: traZODone 50 MG Tab PO SCH (21:36)
[2018-06-21] MEDS: Simvastatin 10 MG Tab PO SCH (21:36)
[2018-06-21] MEDS: Gabapentin 400 MG Cap PO SCH (21:36)
[2018-06-21] MEDS: Tamsulosin 0.4 MG Cap.ER PO SCH (21:36)
[2018-06-21] MEDS: Aspirin 81 MG Tab.EC PO SCH (21:37)
[2018-06-21] MEDS: LEMON BALM PO SCH (21:37)
[2018-06-21] MEDS: Finasteride 5 MG Tab PO SCH (21:37)
[2018-06-21] MEDS: Hydroxychloroquine 200 MG Tab PO SCH (21:37)
[2018-06-21] MEDS: MELATONIN PO SCH (21:37)
[2018-06-21] MEDS: Insulin Glarg,Human.Rec.Analog 100 Unit/ML SUBCUT SCH (21:38)
[2018-06-22] MEDS: traMADol 50 MG Tab PO PRN ×4 (00:02→21:21)
[2018-06-22] MEDS: Omeprazole 20 MG Cap.CR PO SCH (06:18)
[2018-06-22] MEDS: Insulin Lispro 100 Units/ML 3 ML Vial SUBCUT SCH ×6 (08:50→17:16)
[2018-06-22] MEDS: DULoxetine 30 MG Cap PO SCH (08:51)
[2018-06-22] MEDS: Niacin 500 MG Tab.ER PO SCH (08:51)
[2018-06-22] MEDS: Metoprolol Tartrate 25 MG Tab PO SCH ×2 (08:52→21:20)
[2018-06-22] MEDS: Lidocaine 5% 700 MG Patch TOP PRN (09:32)
[2018-06-22] MEDS: cefTRIAXone 1 GM in Sodium Chloride 0.9% 50 ML IV SCH (16:06)
[2018-06-22] MEDS: Gabapentin 400 MG Cap PO SCH (21:20)
[2018-06-22] MEDS: Aspirin 81 MG Tab.EC PO SCH (21:20)
[2018-06-22] MEDS: traZODone 50 MG Tab PO SCH (21:20)
[2018-06-22] MEDS: Simvastatin 10 MG Tab PO SCH (21:21)
[2018-06-22] MEDS: Hydroxychloroquine 200 MG Tab PO SCH (21:21)
[2018-06-22] MEDS: Tamsulosin 0.4 MG Cap.ER PO SCH (21:21)
[2018-06-22] MEDS: Finasteride 5 MG Tab PO SCH (21:22)
[2018-06-22] MEDS: Insulin Glarg,Human.Rec.Analog 100 Unit/ML SUBCUT SCH (21:23)
[2018-06-22] MEDS: MELATONIN PO SCH (21:27)
[2018-06-22] MEDS: LEMON BALM PO SCH (21:27)
[2018-06-23] MEDS: Omeprazole 20 MG Cap.CR PO SCH (05:54)
[2018-06-23] MEDS: Insulin Lispro 100 Units/ML 3 ML Vial SUBCUT SCH ×6 (08:33→17:23)
[2018-06-23] MEDS: Niacin 500 MG Tab.ER PO SCH (08:35)
[2018-06-23] MEDS: Calcitriol 0.25 MCG Cap PO SCH (08:35)
[2018-06-23] MEDS: Metoprolol Tartrate 25 MG Tab PO SCH ×2 (08:36→21:22)
[2018-06-23] MEDS: DULoxetine 30 MG Cap PO SCH (08:36)
[2018-06-23] MEDS: traMADol 50 MG Tab PO PRN (08:36)
[2018-06-23] MEDS ORDERED: Levofloxacin 500 MG Tab PO SCH (11:00)
[2018-06-23] MEDS: Gabapentin 400 MG Cap PO SCH (21:22)
[2018-06-23] MEDS: Tamsulosin 0.4 MG Cap.ER PO SCH (21:22)
[2018-06-23] MEDS: traZODone 50 MG Tab PO SCH (21:22)
[2018-06-23] MEDS: Finasteride 5 MG Tab PO SCH (21:22)
[2018-06-23] MEDS: Hydroxychloroquine 200 MG Tab PO SCH (21:22)
[2018-06-23] MEDS: Simvastatin 10 MG Tab PO SCH (21:22)
[2018-06-23] MEDS: Amoxicillin/Clavulanate K 500-125 MG Tab PO SCH (21:23)
[2018-06-23] MEDS: Insulin Glarg,Human.Rec.Analog 100 Unit/ML SUBCUT SCH (21:23)
[2018-06-23] MEDS: Aspirin 81 MG Tab.EC PO SCH (21:23)
[2018-06-23] MEDS: MELATONIN PO SCH (21:30)
[2018-06-23] MEDS: LEMON BALM PO SCH (21:30)
[2018-06-24] MEDS: Omeprazole 20 MG Cap.CR PO SCH (06:40)
[2018-06-24] MEDS: Insulin Lispro 100 Units/ML 3 ML Vial SUBCUT SCH ×6 (08:54→17:20)
[2018-06-24] MEDS: DULoxetine 30 MG Cap PO SCH (08:55)
[2018-06-24] MEDS: Niacin 500 MG Tab.ER PO SCH (08:55)
[2018-06-24] MEDS: Amoxicillin/Clavulanate K 500-125 MG Tab PO SCH ×2 (08:56→20:59)
[2018-06-24] MEDS: traMADol 50 MG Tab PO PRN (08:56)
[2018-06-24] MEDS: Metoprolol Tartrate 25 MG Tab PO SCH ×2 (08:59→20:59)
[2018-06-24] MEDS: Gabapentin 400 MG Cap PO SCH (20:58)
[2018-06-24] MEDS: Insulin Glarg,Human.Rec.Analog 100 Unit/ML SUBCUT SCH (20:58)
[2018-06-24] MEDS: Tamsulosin 0.4 MG Cap.ER PO SCH (20:58)
[2018-06-24] MEDS: Simvastatin 10 MG Tab PO SCH (20:59)
[2018-06-24] MEDS: Aspirin 81 MG Tab.EC PO SCH (20:59)
[2018-06-24] MEDS: Hydroxychloroquine 200 MG Tab PO SCH (20:59)
[2018-06-24] MEDS: MELATONIN PO SCH (21:00)
[2018-06-24] MEDS: Finasteride 5 MG Tab PO SCH (21:00)
[2018-06-24] MEDS: LEMON BALM PO SCH (21:00)
[2018-06-24] MEDS: traZODone 50 MG Tab PO SCH (21:00)
[2018-06-25] MEDS: Omeprazole 20 MG Cap.CR PO SCH (06:22)
[2018-06-25] MEDS: DULoxetine 30 MG Cap PO SCH (08:30)
[2018-06-25] MEDS: Metoprolol Tartrate 25 MG Tab PO SCH ×2 (08:30→21:32)
[2018-06-25] MEDS: Insulin Lispro 100 Units/ML 3 ML Vial SUBCUT SCH ×6 (08:31→17:13)
[2018-06-25] MEDS: Amoxicillin/Clavulanate K 500-125 MG Tab PO SCH ×2 (08:31→21:34)
[2018-06-25] MEDS: Niacin 500 MG Tab.ER PO SCH (08:31)
[2018-06-25] MEDS: Polyethylene Glycol 3350 Powder 17 GM Packet PO SCH (12:51)
[2018-06-25] MEDS: Insulin Glarg,Human.Rec.Analog 100 Unit/ML SUBCUT SCH (21:30)
[2018-06-25] MEDS: traZODone 50 MG Tab PO SCH (21:31)
[2018-06-25] MEDS: Hydroxychloroquine 200 MG Tab PO SCH (21:34)
[2018-06-25] MEDS: Aspirin 81 MG Tab.EC PO SCH (21:34)
[2018-06-25] MEDS: Finasteride 5 MG Tab PO SCH (21:35)
[2018-06-25] MEDS: MELATONIN PO SCH (21:35)
[2018-06-25] MEDS: Simvastatin 10 MG Tab PO SCH (21:35)
[2018-06-25] MEDS: Gabapentin 400 MG Cap PO SCH (21:35)
[2018-06-25] MEDS: LEMON BALM PO SCH (21:35)
[2018-06-25] MEDS: Tamsulosin 0.4 MG Cap.ER PO SCH (21:35)
[2018-06-26] MEDS: Omeprazole 20 MG Cap.CR PO SCH (07:38)
[2018-06-26] MEDS: Niacin 500 MG Tab.ER PO SCH (09:05)
[2018-06-26] MEDS: Metoprolol Tartrate 25 MG Tab PO SCH ×2 (09:05→20:43)
[2018-06-26] MEDS: DULoxetine 30 MG Cap PO SCH (09:05)
[2018-06-26] MEDS: Calcitriol 0.25 MCG Cap PO SCH (09:06)
[2018-06-26] MEDS: Insulin Lispro 100 Units/ML 3 ML Vial SUBCUT SCH ×6 (09:07→17:42)
[2018-06-26] MEDS: Amoxicillin/Clavulanate K 500-125 MG Tab PO SCH ×2 (09:08→20:43)
[2018-06-26] MEDS: Polyethylene Glycol 3350 Powder 17 GM Packet PO SCH (09:09)
--- NOTE | 2018-06-26 09:41 | PCM.PN ---
- General Info Date of Service: 06/26/18 Admission Dx/Problem (Free Text): Debility Subjective Update: 77 yo M with PMH of DM2, normal pressure hydrocephalus, cervical spinal stenosis , CKD 3, GERD, HLD who was transferred to our facility for a swing bed stay after having cervical spine surgery at the [facility]. patient feels that he is improving. His strength is better. He continues to work with physical therapy. He denied any complaints. - Review of Systems General: Reports: No Symptoms Pulmonary: Reports: No Symptoms Cardiovascular: Reports: No Symptoms Gastrointestinal: Reports: No Symptoms Genitourinary: Reports: No Symptoms Neurological: Reports: Difficulty Walking, Weakness Psychiatric: Reports: No Symptoms - Patient Data Vitals - Most Recent: Last Vital Signs Temp 36.6 C 06/26/18 08:00 Pulse 70 06/26/18 09:05 Resp 18 06/26/18 08:00 BP 148/79 H 06/26/18 09:05 Pulse Ox 96 06/26/18 08:00 Weight - Most Recent: 84.482 kg I&O - Last 24 Hours: Intake & Output 06/25/18 06/26/18 06/26/18 22:59 06:59 14:59 Intake Total 700 Balance 700 Lab Results Last 24 Hours: Laboratory Results - last 24 hr 06/25/18 06/25/18 06/26/18 Range/Units 11:40 16:57 07:34 POC Glucose 163 H 151 H 129 H (83-110) mg/dl Med Orders - Current: Current Medications Acetaminophen (Tylenol Extra Strength) 500 mg PO Q6HR PRN PRN Reason: Pain Last Admin: 06/25/18 21:33 Dose: 500 mg Acetaminophen (Tylenol) 650 mg PO Q4H PRN PRN Reason: Fever Last Admin: 06/20/18 11:58 Dose: 650 mg Amoxicillin/Clavulanate Potassium (Augmentin 500 Mg\125 Mg) 1 tab PO BID [facility] Stop: 06/30/18 09:01 Last Admin: 06/26/18 09:08 Dose: 1 tab Aspirin (Halfprin) 81 mg PO BEDTIME [facility] Last Admin: 06/25/18 21:34 Dose: 81 mg Calcitriol (Rocaltrol) 0.25 mcg PO MoWeFr@0900 [facility] Last Admin: 06/26/18 09:06 Dose: 0.25 mcg Duloxetine HCl (Cymbalta) 30 mg PO DAILY [facility] Last Admin: 06/26/18 09:05 Dose: 30 mg Finasteride (Proscar) 5 mg PO BEDTIME [facility] Last Admin: 06/25/18 21:35 Dose: 5 mg Gabapentin (Neurontin) 400 mg PO BEDTIME [facility] Last Admin: 06/25/18 21:35 Dose: 400 mg Guaifenesin/Codeine Phosphate (Robitussin Ac) 5 ml PO Q6H PRN PRN Reason: Cough Last Admin: 06/22/18 12:37 Dose: 5 ml Hydroxychloroquine Sulfate (Plaquenil) 200 mg PO BEDTIME [facility] Last Admin: 06/25/18 21:34 Dose: 200 mg Insulin Glargine (Lantus) 18 unit SUBCUT BEDTIME [facility] Last Admin: 06/25/18 21:30 Dose: 18 units Insulin Human Lispro (Humalog) 6 unit SUBCUT TIDMEALS [facility] Last Admin: 06/26/18 09:07 Dose: 6 units Insulin Human Lispro (Humalog) 0 unit SUBCUT TIDAC [facility]; Protocol Last Admin: 06/26/18 09:09 Dose: Not Given Lidocaine (Lidoderm 5%) 700 mg TOP DAILY PRN PRN Reason: Other Last Admin: 06/22/18 09:32 Dose: 700 mg Metoprolol Tartrate (Lopressor) 25 mg PO BID [facility] Last Admin: 06/26/18 09:05 Dose: 25 mg Niacin (Niaspan) 500 mg PO DAILY [facility] Last Admin: 06/26/18 09:05 Dose: 500 mg Melatonin/Lemon [place] 10mg Tab Own Med 10 mg PO BEDTIME [facility] Last Admin: 06/25/18 21:35 Dose: 10 mg Omeprazole (Omeprazole) 40 mg PO ACBREAKFAST [facility] Last Admin: 06/26/18 07:38 Dose: 40 mg Polyethylene Glycol (Miralax) 17 gm PO DAILY [facility] Last Admin: 06/26/18 09:09 Dose: Not Given Simvastatin (Zocor) 20 mg PO BEDTIME [facility] Last Admin: 06/25/18 21:35 Dose: 20 mg Sodium Chloride (Saline Flush) 10 ml FLUSH ASDIRECTED PRN PRN Reason: Keep Vein Open Last Admin: 06/22/18 16:07 Dose: 10 ml Tamsulosin HCl (Flomax) 0.8 mg PO BEDTIME [facility] Last Admin: 06/25/18 21:35 Dose: 0.8 mg Tramadol HCl (Ultram) 50 mg PO Q4HR PRN PRN Reason: Pain Last Admin: 06/24/18 08:56 Dose: 50 mg Trazodone HCl (Trazodone) 50 mg PO BEDTIME [facility] Last Admin: 06/25/18 21:31 Dose: 50 mg Discontinued Medications Hydrocodone Bitart/Acetaminophen ([place] 325-5 Mg) 1 tab PO Q4HR PRN PRN Reason: Pain (moderate 4-6) Last Admin: 06/19/18 19:48 Dose: 1 tab Diazepam (Valium) 2 mg PO TID PRN PRN Reason: Spasms Sodium Chloride (Normal Saline) 1,000 mls @ 100 mls/hr IV ASDIRECTED [facility] Last Infusion: 06/21/18 09:28 Dose: Infused Ceftriaxone Sodium 1 gm/ (Sodium Chloride) 50 mls @ 50 mls/hr IV Q24H [facility] Last Admin: 06/22/18 16:06 Dose: 50 mls/hr - Exam General: Alert, Oriented Lungs: Clear to Auscultation, Normal Respiratory Effort Cardiovascular: Regular Rate, Regular Rhythm GI/Abdominal Exam: Normal Bowel Sounds, Soft, Non-Tender, No Distention Extremities: No Pedal Edema Skin: Warm, Dry, Intact Psy/Mental Status: Alert, Normal Affect, Normal Mood - Problem List Review Problem List Initiated/Reviewed/Updated: Yes - My Orders Last 24 Hours: My Active Orders 06/25/18 12:30 Polyethylene Glycol 3350 [MiraLAX] 17 gm PO DAILY - Plan Plan:: #Cervical stenosis s/p surgery PT/OT continue mzl relaxants PRN #UTI Continue oral antibiotics, finish course #DM2 continue current home insulin regimen ISS, accuchecks, carb controlled diet #DVT ppx SC heparin
[2018-06-26] MEDS: Tamsulosin 0.4 MG Cap.ER PO SCH (20:42)
[2018-06-26] MEDS: Hydroxychloroquine 200 MG Tab PO SCH (20:43)
[2018-06-26] MEDS: Simvastatin 10 MG Tab PO SCH (20:43)
[2018-06-26] MEDS: Finasteride 5 MG Tab PO SCH (20:44)
[2018-06-26] MEDS: Gabapentin 400 MG Cap PO SCH (20:44)
[2018-06-26] MEDS: traZODone 50 MG Tab PO SCH (20:44)
[2018-06-26] MEDS: LEMON BALM PO SCH (20:44)
[2018-06-26] MEDS: Aspirin 81 MG Tab.EC PO SCH (20:44)
[2018-06-26] MEDS: MELATONIN PO SCH (20:44)
[2018-06-26] MEDS: Insulin Glarg,Human.Rec.Analog 100 Unit/ML SUBCUT SCH (20:47)
[2018-06-27] MEDS: Omeprazole 20 MG Cap.CR PO SCH (05:47)
[2018-06-27] MEDS: Insulin Lispro 100 Units/ML 3 ML Vial SUBCUT SCH ×6 (08:58→17:22)
[2018-06-27] MEDS: DULoxetine 30 MG Cap PO SCH (09:24)
[2018-06-27] MEDS: Amoxicillin/Clavulanate K 500-125 MG Tab PO SCH ×2 (09:24→20:35)
[2018-06-27] MEDS: Polyethylene Glycol 3350 Powder 17 GM Packet PO SCH (09:24)
[2018-06-27] MEDS: Metoprolol Tartrate 25 MG Tab PO SCH ×2 (09:24→20:34)
[2018-06-27] MEDS: Niacin 500 MG Tab.ER PO SCH (09:24)
[2018-06-27] MEDS: Acetaminophen 325 MG Tab PO PRN (15:37)
[2018-06-27] MEDS ORDERED: Lidocaine 2% Jelly 10 ML Urojet MUCMEM PRN (16:08)
[2018-06-27] MEDS: traMADol 50 MG Tab PO PRN (18:02)
[2018-06-27] MEDS: Lidocaine 5% 700 MG Patch TOP PRN (18:06)
[2018-06-27] MEDS: Gabapentin 400 MG Cap PO SCH (20:34)
[2018-06-27] MEDS: traZODone 50 MG Tab PO SCH (20:34)
[2018-06-27] MEDS: Hydroxychloroquine 200 MG Tab PO SCH (20:34)
[2018-06-27] MEDS: Tamsulosin 0.4 MG Cap.ER PO SCH (20:35)
[2018-06-27] MEDS: MELATONIN PO SCH (20:35)
[2018-06-27] MEDS: Simvastatin 10 MG Tab PO SCH (20:35)
[2018-06-27] MEDS: LEMON BALM PO SCH (20:35)
[2018-06-27] MEDS: Aspirin 81 MG Tab.EC PO SCH (20:35)
[2018-06-27] MEDS: Finasteride 5 MG Tab PO SCH (20:35)
[2018-06-27] MEDS: Insulin Glarg,Human.Rec.Analog 100 Unit/ML SUBCUT SCH (20:36)
[2018-06-28] MEDS: traMADol 50 MG Tab PO PRN (00:19)
[2018-06-28] MEDS: Omeprazole 20 MG Cap.CR PO SCH (06:05)
[2018-06-28] MEDS: Insulin Lispro 100 Units/ML 3 ML Vial SUBCUT SCH ×6 (09:12→17:09)
[2018-06-28] MEDS: DULoxetine 30 MG Cap PO SCH (09:14)
[2018-06-28] MEDS: Calcitriol 0.25 MCG Cap PO SCH (09:14)
[2018-06-28] MEDS: Niacin 500 MG Tab.ER PO SCH (09:14)
[2018-06-28] MEDS: Amoxicillin/Clavulanate K 500-125 MG Tab PO SCH ×2 (09:14→21:05)
[2018-06-28] MEDS: Polyethylene Glycol 3350 Powder 17 GM Packet PO SCH (09:14)
[2018-06-28] MEDS: Metoprolol Tartrate 25 MG Tab PO SCH ×2 (09:15→21:04)
[2018-06-28] MEDS ORDERED: Polyethylene Glycol 3350 Powder 17 GM Packet PO PRN (11:56)
[2018-06-28] MEDS: MELATONIN PO SCH (21:03)
[2018-06-28] MEDS: LEMON BALM PO SCH (21:03)
[2018-06-28] MEDS: Simvastatin 10 MG Tab PO SCH (21:04)
[2018-06-28] MEDS: Hydroxychloroquine 200 MG Tab PO SCH (21:04)
[2018-06-28] MEDS: Finasteride 5 MG Tab PO SCH (21:04)
[2018-06-28] MEDS: traZODone 50 MG Tab PO SCH (21:04)
[2018-06-28] MEDS: Gabapentin 400 MG Cap PO SCH (21:04)
[2018-06-28] MEDS: Insulin Glarg,Human.Rec.Analog 100 Unit/ML SUBCUT SCH (21:05)
[2018-06-28] MEDS: Tamsulosin 0.4 MG Cap.ER PO SCH (21:05)
[2018-06-28] MEDS: Aspirin 81 MG Tab.EC PO SCH (21:05)
[2018-06-29] MEDS: Omeprazole 20 MG Cap.CR PO SCH (06:39)
[2018-06-29] MEDS: Insulin Lispro 100 Units/ML 3 ML Vial SUBCUT SCH ×6 (08:14→17:29)
[2018-06-29] MEDS: DULoxetine 30 MG Cap PO SCH (08:32)
[2018-06-29] MEDS: Amoxicillin/Clavulanate K 500-125 MG Tab PO SCH ×2 (08:32→21:05)
[2018-06-29] MEDS: Metoprolol Tartrate 25 MG Tab PO SCH ×2 (08:32→21:03)
[2018-06-29] MEDS: Niacin 500 MG Tab.ER PO SCH (08:32)
[2018-06-29] MEDS: Tamsulosin 0.4 MG Cap.ER PO SCH (21:04)
[2018-06-29] MEDS: Aspirin 81 MG Tab.EC PO SCH (21:04)
[2018-06-29] MEDS: Simvastatin 10 MG Tab PO SCH (21:04)
[2018-06-29] MEDS: Gabapentin 400 MG Cap PO SCH (21:04)
[2018-06-29] MEDS: traZODone 50 MG Tab PO SCH (21:05)
[2018-06-29] MEDS: Hydroxychloroquine 200 MG Tab PO SCH (21:05)
[2018-06-29] MEDS: Finasteride 5 MG Tab PO SCH (21:05)
[2018-06-29] MEDS: MELATONIN PO SCH (21:06)
[2018-06-29] MEDS: LEMON BALM PO SCH (21:06)
[2018-06-29] MEDS: Insulin Glarg,Human.Rec.Analog 100 Unit/ML SUBCUT SCH (21:07)
[2018-06-29] MEDS: traMADol 50 MG Tab PO PRN (21:44)
[2018-06-30] MEDS: Omeprazole 20 MG Cap.CR PO SCH (06:24)
[2018-06-30] MEDS: Insulin Lispro 100 Units/ML 3 ML Vial SUBCUT SCH ×6 (08:42→17:35)
[2018-06-30] MEDS: DULoxetine 30 MG Cap PO SCH (08:52)
[2018-06-30] MEDS: Niacin 500 MG Tab.ER PO SCH (08:52)
[2018-06-30] MEDS: Metoprolol Tartrate 25 MG Tab PO SCH ×2 (08:52→21:39)
[2018-06-30] MEDS: Amoxicillin/Clavulanate K 500-125 MG Tab PO SCH (08:52)
[2018-06-30] MEDS: Calcitriol 0.25 MCG Cap PO SCH (08:52)
[2018-06-30] MEDS: Tamsulosin 0.4 MG Cap.ER PO SCH (21:39)
[2018-06-30] MEDS: Gabapentin 400 MG Cap PO SCH (21:39)
[2018-06-30] MEDS: Insulin Glarg,Human.Rec.Analog 100 Unit/ML SUBCUT SCH (21:39)
[2018-06-30] MEDS: Simvastatin 10 MG Tab PO SCH (21:39)
[2018-06-30] MEDS: traZODone 50 MG Tab PO SCH (21:39)
[2018-06-30] MEDS: Aspirin 81 MG Tab.EC PO SCH (21:39)
[2018-06-30] MEDS: Hydroxychloroquine 200 MG Tab PO SCH (21:39)
[2018-06-30] MEDS: Finasteride 5 MG Tab PO SCH (21:39)
[2018-06-30] MEDS: MELATONIN PO SCH (21:40)
[2018-06-30] MEDS: LEMON BALM PO SCH (21:40)
[2018-07-01] MEDS: Omeprazole 20 MG Cap.CR PO SCH (06:13)
[2018-07-01 07:09] LABS: ANION GAP 15.7
[2018-07-01] MEDS: Insulin Lispro 100 Units/ML 3 ML Vial SUBCUT SCH ×7 (08:36→17:48)
[2018-07-01] MEDS: DULoxetine 30 MG Cap PO SCH (08:43)
[2018-07-01] MEDS: Metoprolol Tartrate 25 MG Tab PO SCH ×2 (08:43→20:47)
[2018-07-01] MEDS: Niacin 500 MG Tab.ER PO SCH (08:44)
[2018-07-01] MEDS: traMADol 50 MG Tab PO PRN (19:08)
[2018-07-01] MEDS: Insulin Glarg,Human.Rec.Analog 100 Unit/ML SUBCUT SCH (20:46)
[2018-07-01] MEDS: Hydroxychloroquine 200 MG Tab PO SCH (20:47)
[2018-07-01] MEDS: Gabapentin 400 MG Cap PO SCH (20:48)
[2018-07-01] MEDS: Simvastatin 10 MG Tab PO SCH (20:48)
[2018-07-01] MEDS: traZODone 50 MG Tab PO SCH (20:48)
[2018-07-01] MEDS: Tamsulosin 0.4 MG Cap.ER PO SCH (20:48)
[2018-07-01] MEDS: LEMON BALM PO SCH (20:48)
[2018-07-01] MEDS: Aspirin 81 MG Tab.EC PO SCH (20:48)
[2018-07-01] MEDS: Finasteride 5 MG Tab PO SCH (20:48)
[2018-07-01] MEDS: MELATONIN PO SCH (20:48)
[2018-07-02] MEDS: Omeprazole 20 MG Cap.CR PO SCH (05:04)
[2018-07-02] MEDS: Insulin Lispro 100 Units/ML 3 ML Vial SUBCUT SCH ×6 (08:58→17:04)
[2018-07-02] MEDS: Niacin 500 MG Tab.ER PO SCH (09:05)
[2018-07-02] MEDS: DULoxetine 30 MG Cap PO SCH (09:06)
[2018-07-02] MEDS: Metoprolol Tartrate 25 MG Tab PO SCH ×2 (09:06→23:12)
[2018-07-02] MEDS: traMADol 50 MG Tab PO PRN ×2 (17:03→23:26)
[2018-07-02] MEDS: traZODone 50 MG Tab PO SCH (23:09)
[2018-07-02] MEDS: Tamsulosin 0.4 MG Cap.ER PO SCH (23:09)
[2018-07-02] MEDS: Finasteride 5 MG Tab PO SCH (23:09)
[2018-07-02] MEDS: Hydroxychloroquine 200 MG Tab PO SCH (23:09)
[2018-07-02] MEDS: Simvastatin 10 MG Tab PO SCH (23:10)
[2018-07-02] MEDS: Gabapentin 400 MG Cap PO SCH (23:10)
[2018-07-02] MEDS: Aspirin 81 MG Tab.EC PO SCH (23:10)
[2018-07-02] MEDS: LEMON BALM PO SCH (23:15)
[2018-07-02] MEDS: MELATONIN PO SCH (23:15)
[2018-07-02] MEDS: Insulin Glarg,Human.Rec.Analog 100 Unit/ML SUBCUT SCH (23:21)
[2018-07-03] MEDS: Omeprazole 20 MG Cap.CR PO SCH (06:23)
[2018-07-03 07:22] LABS: ANION GAP 13.7
[2018-07-03] MEDS: Insulin Lispro 100 Units/ML 3 ML Vial SUBCUT SCH ×6 (09:03→18:07)
[2018-07-03] MEDS: Calcitriol 0.25 MCG Cap PO SCH (09:04)
[2018-07-03] MEDS: Niacin 500 MG Tab.ER PO SCH (09:04)
[2018-07-03] MEDS: DULoxetine 30 MG Cap PO SCH (09:04)
[2018-07-03] MEDS: Metoprolol Tartrate 25 MG Tab PO SCH ×2 (09:05→21:15)
--- NOTE | 2018-07-03 13:54 | PCM.PN ---
- General Info Date of Service: 07/03/18 Admission Dx/Problem (Free Text): Generalized weakness Subjective Update: 77 yo M with PMH of DM2, normal pressure hydrocephalus, cervical spinal stenosis , CKD 3, GERD, HLD who was transferred to our facility for a swing bed stay after having cervical spine surgery at the [facility]. patient feels that he is improving. His strength is better. He continues to work with physical therapy well. Got new hearing gait today. Has continue lower extremity edema No chest pain, shortness of breath associated with this He denied any complaints. Functional Status: Reports: Tolerating Diet - Review of Systems General: Reports: Weakness. Denies: Fever Pulmonary: Denies: Shortness of Breath Cardiovascular: Denies: Chest Pain Gastrointestinal: Denies: Abdominal Pain Genitourinary: Reports: Other ([place] catheter was removed and urinating well) - Patient Data Vitals - Most Recent: Last Vital Signs Temp 36.7 C 07/03/18 08:23 Pulse 64 07/03/18 09:05 Resp 20 07/03/18 08:23 BP 121/69 07/03/18 09:05 Pulse Ox 99 07/03/18 08:23 Weight - Most Recent: 86.636 kg I&O - Last 24 Hours: Intake & Output 07/02/18 07/03/18 07/03/18 22:59 06:59 14:59 Intake Total 510 300 200 Output Total 1000 500 500 Balance -490 -200 -300 Lab Results Last 24 Hours: Laboratory Results - last 24 hr 07/02/18 07/03/18 07/03/18 Range/Units 16:40 06:10 06:10 WBC 6.5 (5.0-10.0) 10^3/uL RBC 3.28 L (4.6-6.2) 10^6/uL Hgb 9.8 L (14.0-18.0) g/dL Hct 30.9 L (40.0-54.0) % MCV 94.2 (80-100) fL MCH 29.9 (27.0-34.0) pg MCHC 31.7 L (33.0-35.0) g/dL Plt Count 202 (150-450) 10^3/uL Neut % (Auto) 53.7 (42.2-75.2) % Lymph % (Auto) 27.8 (20.5-50.1) % [place] % (Auto) 11.6 H (2-8) % Eos % (Auto) 6.6 H (1.0-3.0) % Baso % (Auto) 0.3 (0.0-1.0) % Add Manual Diff Yes Neutrophils % (Manual) 50 (42-75) % Lymphocytes % (Manual) 35 (20-50) % Monocytes % (Manual) 9 H (2-8) % Eosinophils % (Manual) 6 H (1-3) % Sodium 138 (135-145) mmol/L Potassium 3.7 (3.6-5.0) mmol/L Chloride 103 (101-111) mmol/L Carbon Dioxide 25.0 (21.0-31.0) mmol/L Anion Gap 13.7 BUN 27 H (7-18) mg/dL Creatinine 1.7 H (0.6-1.3) mg/dL Est Cr Clr Drug Dosing 36.39 mL/min Estimated GFR (MDRD) 39 Glucose 85 (74-105) mg/dL POC Glucose 158 H (83-110) mg/dl Calcium 8.7 (8.4-10.2) mg/dl 07/03/18 07/03/18 Range/Units 08:02 11:20 WBC (5.0-10.0) 10^3/uL RBC (4.6-6.2) 10^6/uL Hgb (14.0-18.0) g/dL Hct (40.0-54.0) % MCV (80-100) fL MCH (27.0-34.0) pg MCHC (33.0-35.0) g/dL Plt Count (150-450) 10^3/uL Neut % (Auto) (42.2-75.2) % Lymph % (Auto) (20.5-50.1) % [place] % (Auto) (2-8) % Eos % (Auto) (1.0-3.0) % Baso % (Auto) (0.0-1.0) % Add Manual Diff Neutrophils % (Manual) (42-75) % Lymphocytes % (Manual) (20-50) % Monocytes % (Manual) (2-8) % Eosinophils % (Manual) (1-3) % Sodium (135-145) mmol/L Potassium (3.6-5.0) mmol/L Chloride (101-111) mmol/L Carbon Dioxide (21.0-31.0) mmol/L Anion Gap BUN (7-18) mg/dL Creatinine (0.6-1.3) mg/dL Est Cr Clr Drug Dosing mL/min Estimated GFR (MDRD) Glucose (74-105) mg/dL POC Glucose 89 107 (83-110) mg/dl Calcium (8.4-10.2) mg/dl Med Orders - Current: Current Medications Acetaminophen (Tylenol Extra Strength) 500 mg PO Q6HR PRN PRN Reason: Pain Last Admin: 06/25/18 21:33 Dose: 500 mg Acetaminophen (Tylenol) 650 mg PO Q4H PRN PRN Reason: Fever Last Admin: 06/27/18 15:37 Dose: 650 mg Aspirin (Halfprin) 81 mg PO BEDTIME [facility] Last Admin: 07/02/18 23:10 Dose: 81 mg Calcitriol (Rocaltrol) 0.25 mcg PO MoWeFr@0900 [facility] Last Admin: 07/03/18 09:04 Dose: 0.25 mcg Duloxetine HCl (Cymbalta) 30 mg PO DAILY [facility] Last Admin: 07/03/18 09:04 Dose: 30 mg Finasteride (Proscar) 5 mg PO BEDTIME [facility] Last Admin: 07/02/18 23:09 Dose: 5 mg Gabapentin (Neurontin) 400 mg PO BEDTIME [facility] Last Admin: 07/02/18 23:10 Dose: 400 mg Guaifenesin/Codeine Phosphate (Robitussin Ac) 5 ml PO Q6H PRN PRN Reason: Cough Last Admin: 06/22/18 12:37 Dose: 5 ml Hydroxychloroquine Sulfate (Plaquenil) 200 mg PO BEDTIME [facility] Last Admin: 07/02/18 23:09 Dose: 200 mg Insulin Glargine (Lantus) 18 unit SUBCUT BEDTIME [facility] Last Admin: 07/02/18 23:21 Dose: 18 units Insulin Human Lispro (Humalog) 6 unit SUBCUT TIDMEALS [facility] Last Admin: 07/03/18 12:47 Dose: 6 units Insulin Human Lispro (Humalog) 0 unit SUBCUT TIDAC [facility]; Protocol Last Admin: 07/03/18 12:37 Dose: Not Given Lidocaine (Lidoderm 5%) 700 mg TOP DAILY PRN PRN Reason: Other Last Admin: 06/27/18 18:06 Dose: 700 mg Lidocaine HCl (Xylocaine 2% Jelly) 10 ml MUCMEM BID PRN PRN Reason: Other Metoprolol Tartrate (Lopressor) 25 mg PO BID [facility] Last Admin: 07/03/18 09:05 Dose: 25 mg Niacin (Niaspan) 500 mg PO DAILY [facility] Last Admin: 07/03/18 09:04 Dose: 500 mg Melatonin/Lemon [place] 10mg Tab Own Med 10 mg PO BEDTIME [facility] Last Admin: 07/02/18 23:15 Dose: 10 mg Omeprazole (Omeprazole) 40 mg PO ACBREAKFAST [facility] Last Admin: 07/03/18 06:23 Dose: 40 mg Polyethylene Glycol (Miralax) 17 gm PO DAILY PRN PRN Reason: Constipation Simvastatin (Zocor) 20 mg PO BEDTIME [facility] Last Admin: 07/02/18 23:10 Dose: 20 mg Sodium Chloride (Saline Flush) 10 ml FLUSH ASDIRECTED PRN PRN Reason: Keep Vein Open Last Admin: 06/22/18 16:07 Dose: 10 ml Tamsulosin HCl (Flomax) 0.8 mg PO BEDTIME [facility] Last Admin: 07/02/18 23:09 Dose: 0.8 mg Tramadol HCl (Ultram) 50 mg PO Q4HR PRN PRN Reason: Pain Last Admin: 07/02/18 23:26 Dose: 50 mg Trazodone HCl (Trazodone) 50 mg PO BEDTIME [facility] Last Admin: 07/02/18 23:09 Dose: 50 mg Discontinued Medications Hydrocodone Bitart/Acetaminophen ([place] 325-5 Mg) 1 tab PO Q4HR PRN PRN Reason: Pain (moderate 4-6) Last Admin: 06/19/18 19:48 Dose: 1 tab Amoxicillin/Clavulanate Potassium (Augmentin 500 Mg\125 Mg) 1 tab PO BID [facility] Stop: 06/30/18 09:01 Last Admin: 06/30/18 08:52 Dose: 1 tab Diazepam (Valium) 2 mg PO TID PRN PRN Reason: Spasms Sodium Chloride (Normal Saline) 1,000 mls @ 100 mls/hr IV ASDIRECTED [facility] Last Infusion: 06/21/18 09:28 Dose: Infused Ceftriaxone Sodium 1 gm/ (Sodium Chloride) 50 mls @ 50 mls/hr IV Q24H [facility] Last Admin: 06/22/18 16:06 Dose: 50 mls/hr Polyethylene Glycol (Miralax) 17 gm PO DAILY [facility] Last Admin: 06/28/18 09:14 Dose: Not Given - Exam General: Alert, Oriented Neck: Supple Lungs: Clear to Auscultation, Normal Respiratory Effort Cardiovascular: Regular Rate, Regular Rhythm GI/Abdominal Exam: Normal Bowel Sounds, Soft, Non-Tender Extremities: Pedal Edema (1+ b/l) - Problem List & Annotations (1) Generalized weakness SNOMED Code(s): 87609435 Code(s): R53.1 - WEAKNESS Status: Acute Current Visit: Yes - Problem List Review Problem List Initiated/Reviewed/Updated: Yes - Plan Plan:: #Cervical stenosis s/p surgery PT/OT #UTI Finished antibiotic treatment Urinary retention Resolved Remove catheter #DM2 ISS, accuchecks, carb controlled diet #DVT ppx SC heparin
[2018-07-03] MEDS: MELATONIN PO SCH (21:13)
[2018-07-03] MEDS: LEMON BALM PO SCH (21:13)
[2018-07-03] MEDS: Gabapentin 400 MG Cap PO SCH (21:14)
[2018-07-03] MEDS: Aspirin 81 MG Tab.EC PO SCH (21:15)
[2018-07-03] MEDS: Tamsulosin 0.4 MG Cap.ER PO SCH (21:15)
[2018-07-03] MEDS: Hydroxychloroquine 200 MG Tab PO SCH (21:15)
[2018-07-03] MEDS: Simvastatin 10 MG Tab PO SCH (21:15)
[2018-07-03] MEDS: traZODone 50 MG Tab PO SCH (21:16)
[2018-07-03] MEDS: Insulin Glarg,Human.Rec.Analog 100 Unit/ML SUBCUT SCH ×2 (21:16→21:19)
[2018-07-03] MEDS: Finasteride 5 MG Tab PO SCH (21:16)
[2018-07-04] MEDS: Omeprazole 20 MG Cap.CR PO SCH (06:01)
[2018-07-04] MEDS: Insulin Lispro 100 Units/ML 3 ML Vial SUBCUT SCH ×6 (08:43→17:32)
[2018-07-04] MEDS: DULoxetine 30 MG Cap PO SCH (08:46)
[2018-07-04] MEDS: Metoprolol Tartrate 25 MG Tab PO SCH ×2 (08:46→21:06)
[2018-07-04] MEDS: Niacin 500 MG Tab.ER PO SCH (08:46)
[2018-07-04] MEDS: traMADol 50 MG Tab PO PRN (19:51)
[2018-07-04] MEDS: traZODone 50 MG Tab PO SCH (21:05)
[2018-07-04] MEDS: Hydroxychloroquine 200 MG Tab PO SCH (21:05)
[2018-07-04] MEDS: Tamsulosin 0.4 MG Cap.ER PO SCH (21:06)
[2018-07-04] MEDS: Simvastatin 10 MG Tab PO SCH (21:06)
[2018-07-04] MEDS: Gabapentin 400 MG Cap PO SCH (21:06)
[2018-07-04] MEDS: Finasteride 5 MG Tab PO SCH (21:06)
[2018-07-04] MEDS: Insulin Glarg,Human.Rec.Analog 100 Unit/ML SUBCUT SCH (21:07)
[2018-07-04] MEDS: MELATONIN PO SCH (21:07)
[2018-07-04] MEDS: LEMON BALM PO SCH (21:07)
[2018-07-04] MEDS: Aspirin 81 MG Tab.EC PO SCH (21:07)
[2018-07-05] MEDS: Omeprazole 20 MG Cap.CR PO SCH (05:18)
[2018-07-05] MEDS: Insulin Lispro 100 Units/ML 3 ML Vial SUBCUT SCH ×6 (08:28→17:24)
[2018-07-05] MEDS: DULoxetine 30 MG Cap PO SCH (08:29)
[2018-07-05] MEDS: Niacin 500 MG Tab.ER PO SCH (08:29)
[2018-07-05] MEDS: Calcitriol 0.25 MCG Cap PO SCH (08:29)
[2018-07-05] MEDS: Metoprolol Tartrate 25 MG Tab PO SCH ×2 (08:32→20:35)
[2018-07-05] MEDS: Aspirin 81 MG Tab.EC PO SCH (20:35)
[2018-07-05] MEDS: Tamsulosin 0.4 MG Cap.ER PO SCH (20:35)
[2018-07-05] MEDS: Simvastatin 10 MG Tab PO SCH (20:36)
[2018-07-05] MEDS: Hydroxychloroquine 200 MG Tab PO SCH (20:36)
[2018-07-05] MEDS: Gabapentin 400 MG Cap PO SCH (20:36)
[2018-07-05] MEDS: traZODone 50 MG Tab PO SCH (20:36)
[2018-07-05] MEDS: Finasteride 5 MG Tab PO SCH (20:36)
[2018-07-05] MEDS: Insulin Glarg,Human.Rec.Analog 100 Unit/ML SUBCUT SCH (20:37)
[2018-07-05] MEDS: LEMON BALM PO SCH (20:39)
[2018-07-05] MEDS: MELATONIN PO SCH (20:39)
[2018-07-06] MEDS: Omeprazole 20 MG Cap.CR PO SCH (05:13)
[2018-07-06] MEDS: Insulin Lispro 100 Units/ML 3 ML Vial SUBCUT SCH ×6 (08:31→17:41)
[2018-07-06] MEDS: DULoxetine 30 MG Cap PO SCH (09:23)
[2018-07-06] MEDS: Niacin 500 MG Tab.ER PO SCH (09:23)
[2018-07-06] MEDS: Metoprolol Tartrate 25 MG Tab PO SCH ×2 (09:23→21:22)
[2018-07-06] MEDS: Tamsulosin 0.4 MG Cap.ER PO SCH (21:17)
[2018-07-06] MEDS: Gabapentin 400 MG Cap PO SCH (21:18)
[2018-07-06] MEDS: traZODone 50 MG Tab PO SCH (21:18)
[2018-07-06] MEDS: Aspirin 81 MG Tab.EC PO SCH (21:18)
[2018-07-06] MEDS: Finasteride 5 MG Tab PO SCH (21:18)
[2018-07-06] MEDS: Hydroxychloroquine 200 MG Tab PO SCH (21:18)
[2018-07-06] MEDS: Simvastatin 10 MG Tab PO SCH (21:18)
[2018-07-06] MEDS: MELATONIN PO SCH (21:23)
[2018-07-06] MEDS: LEMON BALM PO SCH (21:23)
[2018-07-06] MEDS: Insulin Glarg,Human.Rec.Analog 100 Unit/ML SUBCUT SCH (21:31)
[2018-07-07] MEDS: Omeprazole 20 MG Cap.CR PO SCH (06:07)
[2018-07-07] MEDS: Insulin Lispro 100 Units/ML 3 ML Vial SUBCUT SCH ×6 (08:11→17:40)
[2018-07-07] MEDS: Calcitriol 0.25 MCG Cap PO SCH (08:18)
[2018-07-07] MEDS: DULoxetine 30 MG Cap PO SCH (08:19)
[2018-07-07] MEDS: Metoprolol Tartrate 25 MG Tab PO SCH ×2 (08:19→21:14)
[2018-07-07] MEDS: Niacin 500 MG Tab.ER PO SCH (08:19)
[2018-07-07] MEDS ORDERED: Acetaminophen 325 MG Tab PO PRN (13:45)
[2018-07-07] MEDS: MELATONIN PO SCH (21:13)
[2018-07-07] MEDS: Insulin Glarg,Human.Rec.Analog 100 Unit/ML SUBCUT SCH (21:13)
[2018-07-07] MEDS: LEMON BALM PO SCH (21:13)
[2018-07-07] MEDS: Finasteride 5 MG Tab PO SCH (21:14)
[2018-07-07] MEDS: traZODone 50 MG Tab PO SCH (21:14)
[2018-07-07] MEDS: Gabapentin 400 MG Cap PO SCH (21:14)
[2018-07-07] MEDS: Tamsulosin 0.4 MG Cap.ER PO SCH (21:14)
[2018-07-07] MEDS: Hydroxychloroquine 200 MG Tab PO SCH (21:14)
[2018-07-07] MEDS: Aspirin 81 MG Tab.EC PO SCH (21:15)
[2018-07-07] MEDS: Simvastatin 10 MG Tab PO SCH (21:15)
[2018-07-08] MEDS: Omeprazole 20 MG Cap.CR PO SCH (06:06)
[2018-07-08] MEDS: Insulin Lispro 100 Units/ML 3 ML Vial SUBCUT SCH ×6 (08:46→18:17)
[2018-07-08] MEDS: Metoprolol Tartrate 25 MG Tab PO SCH ×2 (08:50→21:43)
[2018-07-08] MEDS: Niacin 500 MG Tab.ER PO SCH (08:51)
[2018-07-08] MEDS: DULoxetine 30 MG Cap PO SCH (08:51)
[2018-07-08] MEDS: Insulin Glarg,Human.Rec.Analog 100 Unit/ML SUBCUT SCH (21:40)
[2018-07-08] MEDS: traZODone 50 MG Tab PO SCH (21:42)
[2018-07-08] MEDS: Aspirin 81 MG Tab.EC PO SCH (21:42)
[2018-07-08] MEDS: Finasteride 5 MG Tab PO SCH (21:43)
[2018-07-08] MEDS: MELATONIN PO SCH (21:44)
[2018-07-08] MEDS: Gabapentin 400 MG Cap PO SCH (21:44)
[2018-07-08] MEDS: Hydroxychloroquine 200 MG Tab PO SCH (21:44)
[2018-07-08] MEDS: LEMON BALM PO SCH (21:44)
[2018-07-08] MEDS: Simvastatin 10 MG Tab PO SCH (21:45)
[2018-07-08] MEDS: Tamsulosin 0.4 MG Cap.ER PO SCH (21:45)
[2018-07-09] MEDS: Omeprazole 20 MG Cap.CR PO SCH (05:21)
[2018-07-09] MEDS: Insulin Lispro 100 Units/ML 3 ML Vial SUBCUT SCH ×6 (08:44→17:40)
[2018-07-09] MEDS: Niacin 500 MG Tab.ER PO SCH (08:47)
[2018-07-09] MEDS: DULoxetine 30 MG Cap PO SCH (08:47)
[2018-07-09] MEDS: Metoprolol Tartrate 25 MG Tab PO SCH ×2 (08:47→20:46)
[2018-07-09] MEDS: Finasteride 5 MG Tab PO SCH (20:45)
[2018-07-09] MEDS: LEMON BALM PO SCH (20:45)
[2018-07-09] MEDS: MELATONIN PO SCH (20:45)
[2018-07-09] MEDS: Insulin Glarg,Human.Rec.Analog 100 Unit/ML SUBCUT SCH (20:46)
[2018-07-09] MEDS: Simvastatin 10 MG Tab PO SCH (20:46)
[2018-07-09] MEDS: Hydroxychloroquine 200 MG Tab PO SCH (20:46)
[2018-07-09] MEDS: Aspirin 81 MG Tab.EC PO SCH (20:46)
[2018-07-09] MEDS: Gabapentin 400 MG Cap PO SCH (20:46)
[2018-07-09] MEDS: traZODone 50 MG Tab PO SCH (20:46)
[2018-07-09] MEDS: Tamsulosin 0.4 MG Cap.ER PO SCH (20:46)
[2018-07-10] MEDS: Omeprazole 20 MG Cap.CR PO SCH (06:21)
[2018-07-10] MEDS: DULoxetine 30 MG Cap PO SCH (08:42)
[2018-07-10] MEDS: Niacin 500 MG Tab.ER PO SCH (08:42)
[2018-07-10] MEDS: Metoprolol Tartrate 25 MG Tab PO SCH ×2 (08:42→20:54)
[2018-07-10] MEDS: Calcitriol 0.25 MCG Cap PO SCH (08:42)
[2018-07-10] MEDS: Insulin Lispro 100 Units/ML 3 ML Vial SUBCUT SCH ×6 (08:43→17:26)
--- NOTE | 2018-07-10 12:27 | PN ---
DATE: 07/10/2018 HISTORY: Mr. Francisco Javier Jolly is a 77-year-old male with a medical history significant for hypertension, hyperlipidemia, type 2 diabetes mellitus, normal- pressure hydrocephalus, cervical spinal stenosis, chronic kidney disease, gastroesophageal reflux disease, hyperlipidemia. He is status post cervical spine surgery at the [facility] and got admitted to Swing Bed for continued physical therapy and occupational therapy. For the last 24 hours, the patient denies any complaints of chest pain. No complaints of shortness of breath. No complaints of abdominal pain. No complaints of nausea, vomiting, or diarrhea. He is able to participate in physical therapy and occupational therapy. He is able to ambulate with help of walker. REVIEW OF SYSTEMS: Cardiovascular; respiratory; gastrointestinal; neurology; constitutional were all evaluated. PHYSICAL EXAMINATION: Vital Signs: Temperature of 98.3, pulse of 74, blood pressure of 135/71, respiratory rate of 18, and saturating at 97% on room air. General Appearance: The patient is well oriented to time, place, and person. Follows commands spontaneously. Cardiovascular: S1, S2 heard with normal intensity. No gallops. Respiratory: Clear to auscultation bilaterally. No wheeze. No crepitations. Abdomen: Soft. Bowel sounds positive. Nontender. No rigidity. Extremities: No edema of bilateral lower extremities. MEDICATIONS: Reviewed. Continue with: 1. Aspirin 81 mg daily. 2. Calcitriol 0.25 mcg on Tuesday, Tuesday, Tuesday. 3. Cymbalta 30 mg daily. 4. Proscar 5 mg at bedtime. 5. Neurontin 400 mg at bedtime. 6. Plaquenil 200 mg at bedtime. 7. Lantus 18 units at bedtime. 8. Humalog 6 units with each meals and supplemental scale. 9. Lidoderm transdermal patch topical as needed. 10.Metoprolol 25 mg twice a day. 11.Niacin 500 mg daily. 12.Omeprazole 40 mg at breakfast. 13.Simvastatin 20 mg at bedtime. 14.Flomax 0.8 mg at bedtime. 15.Tramadol 50 mg every 4 hours as needed. 16.Trazodone 50 mg at bedtime. LABORATORY DATA: Labs reviewed. Blood sugars in the range of 117 to 120. ASSESSMENT: 1. Cervical spinal stenosis, status post cervical spine surgery at [place]. 2. Hypertension. 3. Hyperlipidemia. 4. Type 2 diabetes mellitus. PLAN: 1. Hypertension. The patient's blood pressure seems to be in acceptable range. Continue with current antihypertensive medication. 2. Type 2 diabetes mellitus. The patient is currently on insulin regimen. Continue with same. Check his fingersticks with each meals; have him on supplemental scale insulin. 3. Cervical spinal stenosis, status post surgery. The patient is tolerating physical therapy and occupational therapy well. We will continue the same. 4. Upper respiratory tract symptoms and urinary tract infection. The patient was treated with antibiotics. He has finished his antibiotic course, remain stable. 5. DVT prophylaxis. Continue with heparin for DVT prophylaxis. [facility] /[id number]
[2018-07-10] MEDS: Tamsulosin 0.4 MG Cap.ER PO SCH (20:52)
[2018-07-10] MEDS: Hydroxychloroquine 200 MG Tab PO SCH (20:52)
[2018-07-10] MEDS: Simvastatin 10 MG Tab PO SCH (20:53)
[2018-07-10] MEDS: Aspirin 81 MG Tab.EC PO SCH (20:53)
[2018-07-10] MEDS: Gabapentin 400 MG Cap PO SCH (20:53)
[2018-07-10] MEDS: Finasteride 5 MG Tab PO SCH (20:54)
[2018-07-10] MEDS: traZODone 50 MG Tab PO SCH (20:54)
[2018-07-10] MEDS: MELATONIN PO SCH (21:01)
[2018-07-10] MEDS: LEMON BALM PO SCH (21:01)
[2018-07-10] MEDS: Insulin Glarg,Human.Rec.Analog 100 Unit/ML SUBCUT SCH (21:05)
[2018-07-11] MEDS: Omeprazole 20 MG Cap.CR PO SCH (05:31)
[2018-07-11] MEDS: Insulin Lispro 100 Units/ML 3 ML Vial SUBCUT SCH ×6 (08:22→17:25)
[2018-07-11] MEDS: DULoxetine 30 MG Cap PO SCH (08:25)
[2018-07-11] MEDS: Metoprolol Tartrate 25 MG Tab PO SCH ×2 (08:26→20:42)
[2018-07-11] MEDS: Niacin 500 MG Tab.ER PO SCH (08:27)
[2018-07-11] MEDS: Aspirin 81 MG Tab.EC PO SCH (20:39)
[2018-07-11] MEDS: LEMON BALM PO SCH (20:40)
[2018-07-11] MEDS: Hydroxychloroquine 200 MG Tab PO SCH (20:40)
[2018-07-11] MEDS: MELATONIN PO SCH (20:40)
[2018-07-11] MEDS: Gabapentin 400 MG Cap PO SCH (20:40)
[2018-07-11] MEDS: Finasteride 5 MG Tab PO SCH (20:40)
[2018-07-11] MEDS: Simvastatin 10 MG Tab PO SCH (20:41)
[2018-07-11] MEDS: traZODone 50 MG Tab PO SCH (20:41)
[2018-07-11] MEDS: Tamsulosin 0.4 MG Cap.ER PO SCH (20:41)
[2018-07-11] MEDS: Insulin Glarg,Human.Rec.Analog 100 Unit/ML SUBCUT SCH (20:46)
[2018-07-12] MEDS: Omeprazole 20 MG Cap.CR PO SCH (05:51)
[2018-07-12] MEDS: Insulin Lispro 100 Units/ML 3 ML Vial SUBCUT SCH ×6 (08:59→17:43)
[2018-07-12] MEDS: Niacin 500 MG Tab.ER PO SCH (09:02)
[2018-07-12] MEDS: Calcitriol 0.25 MCG Cap PO SCH (09:02)
[2018-07-12] MEDS: DULoxetine 30 MG Cap PO SCH (09:02)
[2018-07-12] MEDS: Metoprolol Tartrate 25 MG Tab PO SCH ×2 (09:05→20:44)
[2018-07-12] MEDS: Simvastatin 10 MG Tab PO SCH (20:40)
[2018-07-12] MEDS: Insulin Glarg,Human.Rec.Analog 100 Unit/ML SUBCUT SCH (20:42)
[2018-07-12] MEDS: Finasteride 5 MG Tab PO SCH (20:44)
[2018-07-12] MEDS: MELATONIN PO SCH (20:45)
[2018-07-12] MEDS: Tamsulosin 0.4 MG Cap.ER PO SCH (20:45)
[2018-07-12] MEDS: Aspirin 81 MG Tab.EC PO SCH (20:45)
[2018-07-12] MEDS: traZODone 50 MG Tab PO SCH (20:45)
[2018-07-12] MEDS: LEMON BALM PO SCH (20:45)
[2018-07-12] MEDS: Hydroxychloroquine 200 MG Tab PO SCH (20:45)
[2018-07-12] MEDS: Gabapentin 400 MG Cap PO SCH (20:45)
[2018-07-13] MEDS: Omeprazole 20 MG Cap.CR PO SCH (06:03)
[2018-07-13] MEDS: Insulin Lispro 100 Units/ML 3 ML Vial SUBCUT SCH ×6 (07:52→17:31)
[2018-07-13] MEDS: Metoprolol Tartrate 25 MG Tab PO SCH ×2 (08:16→20:36)
[2018-07-13] MEDS: DULoxetine 30 MG Cap PO SCH (08:17)
[2018-07-13] MEDS: Niacin 500 MG Tab.ER PO SCH (08:17)
[2018-07-13] MEDS: MELATONIN PO SCH (20:35)
[2018-07-13] MEDS: LEMON BALM PO SCH (20:35)
[2018-07-13] MEDS: Tamsulosin 0.4 MG Cap.ER PO SCH (20:36)
[2018-07-13] MEDS: Hydroxychloroquine 200 MG Tab PO SCH (20:36)
[2018-07-13] MEDS: traZODone 50 MG Tab PO SCH (20:36)
[2018-07-13] MEDS: Gabapentin 400 MG Cap PO SCH (20:36)
[2018-07-13] MEDS: Simvastatin 10 MG Tab PO SCH (20:36)
[2018-07-13] MEDS: Aspirin 81 MG Tab.EC PO SCH (20:37)
[2018-07-13] MEDS: Finasteride 5 MG Tab PO SCH (20:37)
[2018-07-13] MEDS: Insulin Glarg,Human.Rec.Analog 100 Unit/ML SUBCUT SCH (20:37)
[2018-07-14] MEDS: Omeprazole 20 MG Cap.CR PO SCH (06:30)
[2018-07-14 08:16] VITALS: BP 129/70; PULSE 71
[2018-07-14] MEDS: Insulin Lispro 100 Units/ML 3 ML Vial SUBCUT SCH ×4 (08:23→12:13)
[2018-07-14] MEDS: Calcitriol 0.25 MCG Cap PO SCH (08:24)
[2018-07-14] MEDS: DULoxetine 30 MG Cap PO SCH (08:24)
[2018-07-14] MEDS: Niacin 500 MG Tab.ER PO SCH (08:24)
[2018-07-14] MEDS: Metoprolol Tartrate 25 MG Tab PO SCH (08:24)
--- NOTE | 2018-07-14 10:57 | PCM.DCSUM1 ---
Discharge Summary - Hospital Course Free Text/Narrative:: 77 yo M with PMH of DM2, normal pressure hydrocephalus, cervical spinal stenosis , CKD 3, GERD, HLD who was transferred to our facility for a swing bed stay after having cervical spine surgery at the [facility]. Patient was treated with aggressive physical and occupational therapy. I discussed with physical therapist and they feel that the patient is doing well and can be discharged. Patient feels well also. #Cervical stenosis s/p surgery PT/OT #UTI Finished antibiotic treatment Urinary retention Resolved Removed catheter #DM2 ISS, accuchecks, carb controlled diet #DVT ppx was on [place] heparin - Discharge Data Discharge Date: 07/14/18 Discharge Disposition: Home, Self-Care 01 Condition: Good - Patient Summary/Data Consults: Consultations 06/19/18 18:42 OT Evaluation and Treatment [CONS] Routine PT Evaluation and Treatment [CONS] Routine Hospital Course: see above - Discharge Plan Home Medications: Home Meds Aspirin [Ecotrin] 81 mg PO BEDTIME 09/19/13 [History] Hydroxychloroquine Sulfate [Plaquenil] 200 mg PO BEDTIME 09/19/13 [History] Niacin 500 mg PO DAILY 09/19/13 [History] Simvastatin [Zocor] 20 mg PO BEDTIME 09/19/13 [History] Tamsulosin HCl 0.8 mg PO BEDTIME 09/19/13 [History] Calcitriol [Rocaltrol] 0.25 mcg PO .[id number].[id number].Tue03/11/15 [History] Metoprolol Tartrate 25 mg PO BID 03/11/15 [History] Omeprazole 40 mg PO ACBREAKFAST 03/11/15 [History] Insulin Aspart [NovoLOG] 6 units SUBCUT TIDMEALS 07/20/16 [History] Melatonin/Pyridoxine HCl (B6) [Melatonin 5 mg Tablet] 10 mg PO BEDTIME 10/03/16 [History] Finasteride 5 mg PO BEDTIME 01/03/17 [History] DULoxetine [Cymbalta] 30 mg PO DAILY 06/19/18 [History] Gabapentin [Neurontin] 400 mg PO BEDTIME 06/19/18 [History] Insulin Glarg,Human.Rec.Analog [Lantus] 18 unit SUBCUT BEDTIME 06/19/18 [History ] traMADol [Ultram] 50 mg PO Q4HR PRN 06/19/18 [History] traZODone HCl [Trazodone HCl] 50 mg PO BEDTIME 06/19/18 [History] - Discharge Summary/Plan Comment DC Time >30 min.: Yes - Review of Systems General: Reports: No Symptoms Pulmonary: Reports: No Symptoms Cardiovascular: Reports: No Symptoms Gastrointestinal: Reports: No Symptoms Musculoskeletal: Reports: No Symptoms - Patient Data Vitals - Most Recent: Last Vital Signs Temp 36.6 C 07/14/18 08:15 Pulse 71 07/14/18 08:24 Resp 20 07/14/18 08:15 BP 129/70 07/14/18 08:24 Pulse Ox 99 07/14/18 08:15 Weight - Most Recent: 86.364 kg I&O - Last 24 hours: Intake & Output 07/13/18 07/14/18 07/14/18 22:59 06:59 14:59 Intake Total 780 200 560 Balance 780 200 560 Lab Results - Last 24 hrs: Laboratory Results - last 24 hr 07/13/18 07/13/18 07/14/18 Range/Units 11:51 16:51 08:04 POC Glucose 140 H 102 182 H (83-110) mg/dl Med Orders - Current: Current Medications Acetaminophen (Tylenol) 650 mg PO Q4HR PRN PRN Reason: Mild Pain/Fever Aspirin (Halfprin) 81 mg PO BEDTIME [facility] Last Admin: 07/13/18 20:37 Dose: 81 mg Calcitriol (Rocaltrol) 0.25 mcg PO MoWeFr@0900 [facility] Last Admin: 07/14/18 08:24 Dose: 0.25 mcg Duloxetine HCl (Cymbalta) 30 mg PO DAILY [facility] Last Admin: 07/14/18 08:24 Dose: 30 mg Finasteride (Proscar) 5 mg PO BEDTIME [facility] Last Admin: 07/13/18 20:37 Dose: 5 mg Gabapentin (Neurontin) 400 mg PO BEDTIME [facility] Last Admin: 07/13/18 20:36 Dose: 400 mg Guaifenesin/Codeine Phosphate (Robitussin Ac) 5 ml PO Q6H PRN PRN Reason: Cough Last Admin: 06/22/18 12:37 Dose: 5 ml Hydroxychloroquine Sulfate (Plaquenil) 200 mg PO BEDTIME [facility] Last Admin: 07/13/18 20:36 Dose: 200 mg Insulin Glargine (Lantus) 18 unit SUBCUT BEDTIME [facility] Last Admin: 07/13/18 20:37 Dose: 18 units Insulin Human Lispro (Humalog) 6 unit SUBCUT TIDMEALS [facility] Last Admin: 07/14/18 08:23 Dose: 6 units Insulin Human Lispro (Humalog) 0 unit SUBCUT TIDAC [facility]; Protocol Last Admin: 07/14/18 08:24 Dose: 1 units Lidocaine (Lidoderm 5%) 700 mg TOP DAILY PRN PRN Reason: Other Last Admin: 06/27/18 18:06 Dose: 700 mg Lidocaine HCl (Xylocaine 2% Jelly) 10 ml MUCMEM BID PRN PRN Reason: Other Metoprolol Tartrate (Lopressor) 25 mg PO BID [facility] Last Admin: 07/14/18 08:24 Dose: 25 mg Niacin (Niaspan) 500 mg PO DAILY [facility] Last Admin: 07/14/18 08:24 Dose: 500 mg Melatonin/Lemon [place] 10mg Tab Own Med 10 mg PO BEDTIME [facility] Last Admin: 07/13/18 20:35 Dose: 10 mg Omeprazole (Omeprazole) 40 mg PO ACBREAKFAST [facility] Last Admin: 07/14/18 06:30 Dose: 40 mg Polyethylene Glycol (Miralax) 17 gm PO DAILY PRN PRN Reason: Constipation Simvastatin (Zocor) 20 mg PO BEDTIME [facility] Last Admin: 07/13/18 20:36 Dose: 20 mg Sodium Chloride (Saline Flush) 10 ml FLUSH ASDIRECTED PRN PRN Reason: Keep Vein Open Last Admin: 06/22/18 16:07 Dose: 10 ml Tamsulosin HCl (Flomax) 0.8 mg PO BEDTIME [facility] Last Admin: 07/13/18 20:36 Dose: 0.8 mg Tramadol HCl (Ultram) 50 mg PO Q4HR PRN PRN Reason: Pain (moderate 4-6) Last Admin: 07/04/18 19:51 Dose: 50 mg Trazodone HCl (Trazodone) 50 mg PO BEDTIME [facility] Last Admin: 07/13/18 20:36 Dose: 50 mg Discontinued Medications Acetaminophen (Tylenol Extra Strength) 500 mg PO Q6HR PRN PRN Reason: Pain (mild 1-3) Last Admin: 06/25/18 21:33 Dose: 500 mg Acetaminophen (Tylenol) 650 mg PO Q4H PRN PRN Reason: Fever Last Admin: 06/27/18 15:37 Dose: 650 mg Hydrocodone Bitart/Acetaminophen ([place] 325-5 Mg) 1 tab PO Q4HR PRN PRN Reason: Pain (moderate 4-6) Last Admin: 06/19/18 19:48 Dose: 1 tab Amoxicillin/Clavulanate Potassium (Augmentin 500 Mg\125 Mg) 1 tab PO BID [facility] Stop: 06/30/18 09:01 Last Admin: 06/30/18 08:52 Dose: 1 tab Diazepam (Valium) 2 mg PO TID PRN PRN Reason: Spasms Sodium Chloride (Normal Saline) 1,000 mls @ 100 mls/hr IV ASDIRECTED [facility] Last Infusion: 06/21/18 09:28 Dose: Infused Ceftriaxone Sodium 1 gm/ (Sodium Chloride) 50 mls @ 50 mls/hr IV Q24H [facility] Last Admin: 06/22/18 16:06 Dose: 50 mls/hr Polyethylene Glycol (Miralax) 17 gm PO DAILY [facility] Last Admin: 06/28/18 09:14 Dose: Not Given - Exam General: Reports: Alert, Oriented, Cooperative Neck: Reports: Supple Lungs: Reports: Clear to Auscultation, Normal Respiratory Effort Cardiovascular: Reports: Regular Rate, Regular Rhythm GI/Abdominal Exam: Normal Bowel Sounds, Soft, Non-Tender, No Organomegaly, No Distention, No Abnormal Bruit, No Mass, Pelvis Stable Extremities: Normal Inspection, Normal Range of Motion, Non-Tender, No Pedal Edema, Normal Capillary Refill
== END 2018-07-14 12:50 | disposition home or self-care (01) | DRG 560 ==
LOC: UNDOADMIN 17:53 → DL.MS 17:53
PROVIDERS: ADMIT Hospitalist; ATTEND Hospitalist
DX: Z47.89 Encounter for other orthopedic aftercare (principal); G91.2 (Idiopathic) normal pressure hydrocephalus; N39.0 Urinary tract infection, site not specified; N18.3 Chronic kidney disease, stage 3 (moderate); K21.9 Gastro-esophageal reflux disease without esophagitis; E78.5 Hyperlipidemia, unspecified; H54.7 Unspecified visual loss; E78.00 Pure hypercholesterolemia, unspecified; I12.9 Hypertensive chronic kidney disease with stage 1 through stage 4 chronic kidney disease, or unspecified chronic kidney disease; E11.22 Type 2 diabetes mellitus with diabetic chronic kidney disease; N40.1 Benign prostatic hyperplasia with lower urinary tract symptoms; R33.8 Other retention of urine; G89.29 Other chronic pain; E21.3 Hyperparathyroidism, unspecified; Z96.619 Presence of unspecified artificial shoulder joint; J06.9 Acute upper respiratory infection, unspecified; Z79.82 Long term (current) use of aspirin; Z79.4 Long term (current) use of insulin; Z88.8 Allergy status to other drugs, medicaments and biological substances; Z88.1 Allergy status to other antibiotic agents; Z98.49 Cataract extraction status, unspecified eye; Z90.49 Acquired absence of other specified parts of digestive tract; Z87.891 Personal history of nicotine dependence
CPT/HCPCS: 36415; 51702; 71045; 80048; 81001; 82565; 82962; 83735; 85025; 87086; 87088; 87186; 87804; 97032-GP; 97110-GO; 97110-GP; 97116-GP; 97162-GP; 97166-GO; 97530-GO; 97535-GO; A9270-GY; J0696; J1815; J1815-GY; J7030; J7050

== ENCOUNTER 2019-07-11 13:51 | Emergency (ER) | payer MEDICARE, OTHER ==
--- NOTE | 2019-07-11 14:50 | CR ---
EXAMINATION: Ribs 2V w Chest Lt SEX: Male AGE: 78 years CLINICAL HISTORY: 78-year-old male with a history of "normal pressure hydrocephalus and shunt ([facility])" who FELL on Sat. c/o left lateral chest pain. INTERPRETATION: 1. Platelike atelectasis left base but....no ipsilateral lower left rib fracture appreciated in the region of BB skin marker. 2. No dependent pleural effusion or left-sided pneumothorax. 3. Total right shoulder replacement. Shunt line neck on the right. Lower cervical spinal fusion. Lumbar spinal fusion. 4. Normal cardiac silhouette without cephalization of vascular flow, alveolar edema or dependent effusion. 5. No lung mass or hilar lymphadenopathy. No focal lobar pneumonia. CONCLUSION: No obvious left rib fractures. Left lower lobe atelectasis (respiratory "splinting"). Evidence of several surgeries.
[2019-07-11 16:58] VITALS: BP 180/87; PULSE 84
--- NOTE | 2019-07-11 18:07 | EDM.PDOC ---
Scribed by Nirali Buitrago 07/11/19 [id number] for Janice Galvez NP ED HPI GENERAL MEDICAL PROBLEM - General Chief Complaint: Chest Pain Stated Complaint: FELL 5 DAYS AGO/CHEST HURTS MAYBE RIB Time Seen by Provider: 07/11/19 16:50 Source of Information: Reports: Patient, RN, RN Notes Reviewed History Limitations: Reports: No Limitations - History of Present Illness INITIAL COMMENTS - FREE TEXT/NARRATIVE: Patient presents to ER with complaint of left rib pain. States he fell on Tuesday and tripped over a string for cement sidewalk. He fell on his left side. Denies hitting head or loss of consciousness. No pain with coughing. Pain is 10/10 with coughing otherwise much less. No chest pain, shortness of breath, fever and chills. Onset: Gradual Duration: Getting Worse Location: Reports: Chest Quality: Reports: Ache Severity: Moderate Improves with: Reports: None Worsens with: Reports: None Associated Symptoms: Reports: No Other Symptoms Left Middle Chest Pain Score (Numeric/FACES): 10 - Related Data Allergies Allergy/AdvReac Type Severity Reaction Status Date / Time aspirin Allergy Rash Verified 07/11/19 14:20 bacitracin [From Polysporin] Allergy Cannot Verified 07/11/19 14:20 Remember polymyxin B sulfate Allergy Cannot Verified 07/11/19 14:20 [From Polysporin] Remember salicylates Allergy Rash Verified 07/11/19 14:20 atorvastatin [From Lipitor] AdvReac Joint Pain Verified 07/11/19 14:20 calcium containing cmpd Allergy Cannot Uncoded 07/11/19 14:20 Remember Home Meds: Home Meds Aspirin [Ecotrin EC] 81 mg PO BEDTIME 09/19/13 [History] Hydroxychloroquine Sulfate [Plaquenil] 200 mg PO BEDTIME 09/19/13 [History] Niacin 500 mg PO DAILY 09/19/13 [History] Simvastatin [Zocor] 20 mg PO BEDTIME 09/19/13 [History] Tamsulosin HCl 0.8 mg PO BEDTIME 09/19/13 [History] Calcitriol [Rocaltrol] 0.25 mcg PO .MO.WED.Tue03/11/15 [History] Metoprolol Tartrate 25 mg PO BID 03/11/15 [History] Omeprazole 40 mg PO ACBREAKFAST 03/11/15 [History] Insulin Aspart [NovoLOG] 6 units SUBCUT TIDMEALS 07/20/16 [History] Melatonin/Pyridoxine HCl (B6) [Melatonin 5 mg Tablet] 10 mg PO BEDTIME 10/03/16 [History] Finasteride 5 mg PO BEDTIME 01/03/17 [History] DULoxetine [Cymbalta] 30 mg PO DAILY 06/19/18 [History] Gabapentin [Neurontin] 400 mg PO BEDTIME 06/19/18 [History] Insulin Glarg,Human.Rec.Analog [Lantus] 18 unit SUBCUT BEDTIME 06/19/18 [History ] traMADol [Ultram] 50 mg PO Q4HR PRN 06/19/18 [History] traZODone HCl [Trazodone HCl] 50 mg PO BEDTIME 06/19/18 [History] Past Medical History HEENT History: Reports: Cataract, Impaired Vision Other HEENT History: has hearing aids Cardiovascular History: Reports: High Cholesterol, Hypertension Respiratory History: Reports: Bronchitis, Recurrent Gastrointestinal History: Reports: Diverticulosis, GERD, Hemorrhoids Genitourinary History: Reports: BPH, Chronic Renal Insuffiency, Renal Disease Other Genitourinary History: prostate nodule-2017 Musculoskeletal History: Reports: Back Pain, Chronic, Fracture Other Musculoskeletal History: left radius and ulna Neurological History: Reports: None, Other (See Below) Other Neuro History: hydrocephalus 05/2018 Psychiatric History: Reports: Addiction, Suicidal Ideation Other Psychiatric History: past history of etoh abuse Endocrine/Metabolic History: Reports: Diabetes, Type II, Hyperparathyroidism Hematologic History: Reports: None Immunologic History: Reports: None Oncologic (Cancer) History: Reports: None Dermatologic History: Reports: Other (See Below) Other Dermatologic History: precancerous lesions to face - Infectious Disease History Infectious Disease History: Reports: Chicken Pox, Measles - Past Surgical History Head Surgeries/Procedures: Reports: None HEENT Surgical History: Reports: Cataract Surgery, Tonsillectomy Other HEENT Surgeries/Procedures: wisdon teeth extraction GI Surgical History: Reports: Appendectomy, Colonoscopy Other GI Surgeries/Procedures: colon surgery secondary to crush injury in remote past Neurological Surgical History: Reports: Laminectomy, Spinal Fusion Musculoskeletal Surgical History: Reports: Carpal Tunnel, Shoulder Replacement, Other (See Below) Other Musculoskeletal Surgeries/Procedures:: back surgery Social & Family History - Family History Family Medical History: Noncontributory - Tobacco Use Smoking Status *Q: Never Smoker - Caffeine Use Caffeine Use: Reports: None - Recreational Drug Use Recreational Drug Use: No ED ROS GENERAL - Review of Systems Review Of Systems: Comprehensive ROS is negative, except as noted in HPI. ED EXAM, GENERAL - Physical Exam Exam: See Below Exam Limited By: No Limitations General Appearance: Alert, WD/WN, No Apparent Distress Eye Exam: Bilateral Eye: EOMI, Normal Inspection, PERRL Ears: Normal External Exam, Normal Canal, Hearing Grossly Normal, Normal TMs Nose: Normal Inspection, Normal Mucosa, No Blood Throat/Mouth: Normal Inspection, Normal Lips, Normal Teeth, Normal Gums, Normal Oropharynx, Normal Voice, No Airway Compromise Head: Atraumatic, Normocephalic Neck: Normal Inspection, Supple, Non-Tender, Full Range of Motion Respiratory/Chest: Other (clear but diminished. Tender left lateral chest. ) Cardiovascular: Normal Peripheral Pulses, Regular Rate, Rhythm, No Edema, No Gallop, No JVD, No Murmur, No Rub GI/Abdominal: Normal Bowel Sounds, Soft, Non-Tender, No Organomegaly, No Distention, No Abnormal Bruit, No Mass (Male) Exam: Deferred Rectal (Males) Exam: Deferred Back Exam: Other (decreased range of motion.) Extremities: Normal Inspection, Normal Range of Motion, Non-Tender, Normal Capillary Refill, No Pedal Edema Neurological: Alert, Oriented, CN II-XII Intact, Normal Cognition, Normal Gait, Normal Reflexes, No Motor/Sensory Deficits Psychiatric: Normal Affect, Normal Mood Skin Exam: Warm, Dry, Intact, Normal Color, No Rash Lymphatic: No Adenopathy Course - Vital Signs Last Recorded V/S: Last Vital Signs Temp 97.6 F 07/11/19 16:56 Pulse 84 07/11/19 16:56 Resp 18 07/11/19 16:56 BP 180/87 H 07/11/19 16:56 Pulse Ox 94 L 07/11/19 16:56 - Radiology Interpretation Free Text/Narrative:: Chest with ribs: No obvious left rib fractures. Left lower lobe atelectasis ( respiratory "splinting"). Evidence of several surgeries. See rad report. Departure - Departure Time of Disposition: 17:05 Disposition: Home, Self-Care 01 Condition: Fair Clinical Impression: Rib pain on left side - Discharge Information *PRESCRIPTION DRUG MONITORING PROGRAM REVIEWED*: No *COPY OF PRESCRIPTION DRUG MONITORING REPORT IN PATIENT MEÑO: No Instructions: Chest Wall Pain, [id number], Rib Contusion Referrals: Dale Saha MD [Primary Care Provider] - Forms: ED Department Discharge Additional Instructions: No signs of rib fracture May use Tylenol as directed for pain May use heat to the area as tolerated Splint the area when moving and standing up, and with coughing Deep breathe and cough frequently to prevent development of pneumonia Follow up with your primary care facility in 1-2 weeks if no improvement Sepsis Event Note - Evaluation Sepsis Screening Result: No Definite Risk - Focused Exam Vital Signs: Vital Signs Temp Pulse Resp BP BP Pulse Ox 07/11/19 16:56 97.6 F 84 18 180/87 H 171/92 H 94 L 07/11/19 14:09 98.6 F 75 20 156/78 H 97 Date Exam was Performed: 07/11/19 Time Exam was Performed: 18:07 I have read and agree with the documentation that has been completed regarding this visit. By signing this record, I attest that the documentation was completed in my physical presence and is an accurate record of the encounter.
== END 2019-07-11 17:17 | disposition home or self-care (01) ==
LOC: DL.ED 13:51
DX: R07.81 Pleurodynia (principal); E78.00 Pure hypercholesterolemia, unspecified; I10 Essential (primary) hypertension; K21.9 Gastro-esophageal reflux disease without esophagitis; N40.0 Benign prostatic hyperplasia without lower urinary tract symptoms; E11.9 Type 2 diabetes mellitus without complications; Z88.8 Allergy status to other drugs, medicaments and biological substances; Z88.1 Allergy status to other antibiotic agents; Z79.82 Long term (current) use of aspirin; Z79.899 Other long term (current) drug therapy; Z79.4 Long term (current) use of insulin; W01.198A Fall on same level from slipping, tripping and stumbling with subsequent striking against other object, initial encounter
CPT/HCPCS: 71101-LT; 99283

== ENCOUNTER 2020-04-25 19:59 | Emergency (ER) | payer MEDICARE, OTHER ==
[2020-04-25 20:11] VITALS: BP 181/101; PULSE 83
[2020-04-25] MEDS ORDERED: Doxycycline Monohydrate 100 MG Cap PO ONE (20:50)
--- NOTE | 2020-04-25 20:55 | EDM.PDOC ---
ED HPI GENERAL MEDICAL PROBLEM - General Chief Complaint: Lower Extremity Injury/Pain Stated Complaint: LEFT FOOT INFECTED TOE, FOOT SWELLING Time Seen by Provider: 04/25/20 20:10 Source of Information: Reports: Patient History Limitations: Reports: No Limitations - History of Present Illness INITIAL COMMENTS - FREE TEXT/NARRATIVE: ED with pain swelling to left great toe, Reports, nail trimmed at diabetic clinic 2 weeks ago, Noted redness and followed up in clinic, On keflex. Tonight toe more swollen and noticed drainage when soaking. no fever or chills. Left Toe-Hailux Pain Score (Numeric/FACES): 5 - Related Data Allergies Allergy/AdvReac Type Severity Reaction Status Date / Time aspirin Allergy Rash Verified 07/11/19 14:20 bacitracin [From Polysporin] Allergy Cannot Verified 07/11/19 14:20 Remember polymyxin B sulfate Allergy Cannot Verified 07/11/19 14:20 [From Polysporin] Remember salicylates Allergy Rash Verified 07/11/19 14:20 atorvastatin [From Lipitor] AdvReac Joint Pain Verified 07/11/19 14:20 calcium containing cmpd Allergy Cannot Uncoded 07/11/19 14:20 Remember Home Meds: Home Meds Aspirin [Ecotrin EC] 81 mg PO BEDTIME 09/19/13 [History] Hydroxychloroquine Sulfate [Plaquenil] 200 mg PO BEDTIME 09/19/13 [History] Niacin 500 mg PO DAILY 09/19/13 [History] Simvastatin [Zocor] 20 mg PO BEDTIME 09/19/13 [History] Tamsulosin HCl 0.8 mg PO BEDTIME 09/19/13 [History] Calcitriol [Rocaltrol] 0.25 mcg PO .MO.TUE.Tue03/11/15 [History] Metoprolol Tartrate 25 mg PO BID 03/11/15 [History] Omeprazole 40 mg PO ACBREAKFAST 03/11/15 [History] Insulin Aspart [NovoLOG] 6 units SUBCUT TIDMEALS 07/20/16 [History] Melatonin/Pyridoxine HCl (B6) [Melatonin 5 mg Tablet] 10 mg PO BEDTIME 10/03/16 [History] Finasteride 5 mg PO BEDTIME 01/03/17 [History] DULoxetine [Cymbalta] 30 mg PO DAILY 06/19/18 [History] Gabapentin [Neurontin] 400 mg PO BEDTIME 06/19/18 [History] Insulin Glarg,Human.Rec.Analog [Lantus] 18 unit SUBCUT BEDTIME 06/19/18 [History] traMADol [Ultram] 50 mg PO Q4HR PRN 06/19/18 [History] traZODone HCl [Trazodone HCl] 50 mg PO BEDTIME 06/19/18 [History] Past Medical History HEENT History: Reports: Cataract, Impaired Vision Other HEENT History: has hearing aids Cardiovascular History: Reports: High Cholesterol, Hypertension Respiratory History: Reports: Bronchitis, Recurrent Gastrointestinal History: Reports: Diverticulosis, GERD, Hemorrhoids Genitourinary History: Reports: BPH, Chronic Renal Insuffiency, Renal Disease Other Genitourinary History: prostate nodule-2017 Musculoskeletal History: Reports: Back Pain, Chronic, Fracture Other Musculoskeletal History: left radius and ulna Neurological History: Reports: None, Other (See Below) Other Neuro History: hydrocephalus 05/2018 Psychiatric History: Reports: Addiction, Suicidal Ideation Other Psychiatric History: past history of etoh abuse Endocrine/Metabolic History: Reports: Diabetes, Type II, Hyperparathyroidism Hematologic History: Reports: None Immunologic History: Reports: None Oncologic (Cancer) History: Reports: None Dermatologic History: Reports: Other (See Below) Other Dermatologic History: precancerous lesions to face - Infectious Disease History Infectious Disease History: Reports: Chicken Pox, Measles, Novel Coronavirus - Past Surgical History Head Surgeries/Procedures: Reports: None HEENT Surgical History: Reports: Cataract Surgery, Tonsillectomy Other HEENT Surgeries/Procedures: wisdon teeth extraction GI Surgical History: Reports: Appendectomy, Colonoscopy Other GI Surgeries/Procedures: colon surgery secondary to crush injury in remote past Neurological Surgical History: Reports: Laminectomy, Spinal Fusion Musculoskeletal Surgical History: Reports: Carpal Tunnel, Shoulder Replacement, Other (See Below) Other Musculoskeletal Surgeries/Procedures:: back surgery Social & Family History - Family History Family Medical History: No Pertinent Family History - Tobacco Use Tobacco Use Status *Q: Never Tobacco User Second Hand Smoke Exposure: No - Caffeine Use Caffeine Use: Reports: None - Recreational Drug Use Recreational Drug Use: No Review of Systems - Review of Systems Review Of Systems: Comprehensive ROS is negative, except as noted in HPI. ED EXAM, GENERAL - Physical Exam Exam: See Below Exam Limited By: No Limitations General Appearance: Alert, Mild Distress Eye Exam: Bilateral Eye: EOMI Ears: Hearing Loss Nose: Normal Inspection Throat/Mouth: Normal Inspection Head: Atraumatic, Normocephalic Neck: Carotid Bruit Respiratory/Chest: No Respiratory Distress, Lungs Clear Cardiovascular: Regular Rate, Rhythm Extremities: Other (left distal great toe mild redness mild swelling scant yellow discharge lateral distal nail) Neurological: Alert, Oriented, Normal Cognition Skin Exam: Warm, Erythema (left great toe) Course - Vital Signs Last Recorded V/S: Last Vital Signs Temp 97.7 F 04/25/20 20:04 Pulse 83 04/25/20 20:04 Resp 18 04/25/20 20:04 BP 181/101 H 04/25/20 20:04 Pulse Ox 100 04/25/20 20:04 - Orders/Labs/Meds Meds: Medications Discontinued Medications Generic Name Dose Route Start Last Admin Trade Name Freq PRN Reason Stop Dose Admin Doxycycline Monohydrate 100 mg 04/25/20 20:50 04/25/20 20:59 Doxycycline Monohydrate PO 04/25/20 20:51 100 mg ONETIME ONE Administration Departure - Departure Time of Disposition: 20:51 Disposition: Home, Self-Care 01 Condition: Good Clinical Impression: Ingrown toenail of left foot with infection Diabetes Qualifiers: Diabetes mellitus type: type 2 Diabetes mellitus manager terminal insulin use: unspecified shelter insulin use status Diabetes mellitus complication status: with skin complications Diabetes mellitus complication detail: with other skin complication Qualified Code(s): E11.628 - Type 2 diabetes mellitus with other skin complications - Discharge Information *PRESCRIPTION DRUG MONITORING PROGRAM REVIEWED*: No *COPY OF PRESCRIPTION DRUG MONITORING REPORT IN PATIENT MEÑO: No Instructions: Ingrown Toenail Forms: ED Department Discharge Additional Instructions: stop cephalexin doxycycline 100mg one twice daily for one week Recheck in clinic early next week follow up sooner if increased redness pain and selling continue to soak toe at lest twice daily broad toe shoes elevate when possible Sepsis Event Note (ED) - Evaluation Sepsis Screening Result: No Definite Risk
== END 2020-04-25 21:07 | disposition home or self-care (01) ==
LOC: DL.ED 19:59
DX: L60.0 Ingrowing nail (principal); E11.628 Type 2 diabetes mellitus with other skin complications; E78.00 Pure hypercholesterolemia, unspecified; K21.9 Gastro-esophageal reflux disease without esophagitis; I12.9 Hypertensive chronic kidney disease with stage 1 through stage 4 chronic kidney disease, or unspecified chronic kidney disease; N18.9 Chronic kidney disease, unspecified; E11.22 Type 2 diabetes mellitus with diabetic chronic kidney disease; N40.0 Benign prostatic hyperplasia without lower urinary tract symptoms; Z88.6 Allergy status to analgesic agent; Z88.1 Allergy status to other antibiotic agents; Z88.8 Allergy status to other drugs, medicaments and biological substances; Z79.82 Long term (current) use of aspirin; Z79.4 Long term (current) use of insulin; Z79.899 Other long term (current) drug therapy
CPT/HCPCS: 99283; A9270

== ENCOUNTER 2020-07-25 22:31 | Emergency (ER) | payer MEDICARE, OTHER ==
[2020-07-25 23:22] VITALS: BP 168/100; PULSE 89
[2020-07-26 02:48] LABS: ANION GAP 14.1 mEq/L (7-13)
--- NOTE | 2020-07-26 03:40 | EDM.PDOC ---
ED HPI GENERAL MEDICAL PROBLEM - General Chief Complaint: Abdominal Pain Stated Complaint: COLONOSCOPY LAST WEEK / IN PAIN Time Seen by Provider: 07/26/20 01:30 Source of Information: Reports: Patient, Family (), RN, RN Notes Reviewed History Limitations: Reports: No Limitations - History of Present Illness INITIAL COMMENTS - FREE TEXT/NARRATIVE: Miles is a 79 y/o male who presents to the ED via personal vehicle with for complaints of abdominal pain. The patient states his pain started in his left lower abdomen this morning and has maintained in that time. He reports he was examined in the clinic four days ago for abdominal pain and was subsequently treated with multiple enemas for constipation. He did not have any abdominal pain following the treatment until this morning while defecating; he had three BMS today, two formed and one loose. The patient reports he is concerned as during his last enema, four days ago, he noticed omok blood in his stool. He denies fever, shaking chills, dyspepsia, nausea, vomiting, dysuria, hematuria, melena, or recent hematochezia. He has not performed any additional enemas. He denies tobacco, alcohol, or recreational drug use. His last meal was at approximately 1700 today; he did not eat much. Left Lower Abdomen Pain Score (Numeric/FACES): 5 - Related Data Allergies Allergy/AdvReac Type Severity Reaction Status Date / Time aspirin Allergy Rash Verified 07/25/20 23:22 bacitracin [From Polysporin] Allergy Cannot Verified 07/25/20 23:22 Remember polymyxin B sulfate Allergy Cannot Verified 07/25/20 23:22 [From Polysporin] Remember salicylates Allergy Rash Verified 07/25/20 23:22 atorvastatin [From Lipitor] AdvReac Joint Pain Verified 07/25/20 23:22 calcium containing cmpd Allergy Cannot Uncoded 07/25/20 23:22 Remember Home Meds: Home Meds Aspirin [Ecotrin EC] 81 mg PO BEDTIME 09/19/13 [History] Hydroxychloroquine Sulfate [Plaquenil] 200 mg PO BEDTIME 09/19/13 [History] Niacin 500 mg PO DAILY 09/19/13 [History] Simvastatin [Zocor] 20 mg PO BEDTIME 09/19/13 [History] Tamsulosin HCl 0.8 mg PO BEDTIME 09/19/13 [History] Calcitriol [Rocaltrol] 0.25 mcg PO .MO.WED.Tue03/11/15 [History] Metoprolol Tartrate 25 mg PO BID 03/11/15 [History] Omeprazole 40 mg PO ACBREAKFAST 03/11/15 [History] Insulin Aspart [NovoLOG] 6 units SUBCUT TIDMEALS 07/20/16 [History] Melatonin/Pyridoxine HCl (B6) [Melatonin-Vit B6 5-10 mg Tab] 10 mg PO BEDTIME 10/03/16 [History] Finasteride 5 mg PO BEDTIME 01/03/17 [History] DULoxetine [Cymbalta] 30 mg PO DAILY 06/19/18 [History] Gabapentin [Neurontin] 400 mg PO BEDTIME 06/19/18 [History] Insulin Glarg,Human.Rec.Analog [Lantus] 18 unit SUBCUT BEDTIME 06/19/18 [History] traMADol [Ultram] 50 mg PO Q4HR PRN 06/19/18 [History] traZODone HCl [Trazodone HCl] 50 mg PO BEDTIME 06/19/18 [History] Past Medical History HEENT History: Reports: Cataract, Impaired Vision Other HEENT History: has hearing aids Cardiovascular History: Reports: High Cholesterol, Hypertension Respiratory History: Reports: Bronchitis, Recurrent Gastrointestinal History: Reports: Diverticulosis, GERD, Hemorrhoids Genitourinary History: Reports: BPH, Chronic Renal Insuffiency, Renal Disease Other Genitourinary History: prostate nodule-2017 Musculoskeletal History: Reports: Back Pain, Chronic, Fracture Other Musculoskeletal History: left radius and ulna Neurological History: Reports: Other (See Below) Other Neuro History: hydrocephalus 05/2018 Psychiatric History: Reports: Addiction, Suicidal Ideation Other Psychiatric History: past history of etoh abuse Endocrine/Metabolic History: Reports: Diabetes, Type II, Hyperparathyroidism Hematologic History: Reports: None Immunologic History: Reports: None Oncologic (Cancer) History: Reports: None Dermatologic History: Reports: Other (See Below) Other Dermatologic History: precancerous lesions to face - Infectious Disease History Infectious Disease History: Reports: Chicken Pox, Measles, Novel Coronavirus - Past Surgical History Head Surgeries/Procedures: Reports: None HEENT Surgical History: Reports: Cataract Surgery, Tonsillectomy Other HEENT Surgeries/Procedures: wisdon teeth extraction GI Surgical History: Reports: Appendectomy, Colonoscopy Other GI Surgeries/Procedures: colon surgery secondary to crush injury in remote past Neurological Surgical History: Reports: Laminectomy, Spinal Fusion Musculoskeletal Surgical History: Reports: Carpal Tunnel, Shoulder Replacement, Other (See Below) Other Musculoskeletal Surgeries/Procedures:: back surgery Social & Family History - Family History Family Medical History: No Pertinent Family History - Tobacco Use Tobacco Use Status *Q: Never Tobacco User Second Hand Smoke Exposure: No - Caffeine Use Caffeine Use: Reports: None - Recreational Drug Use Recreational Drug Use: No ED ROS GENERAL - Review of Systems Review Of Systems: Comprehensive ROS is negative, except as noted in HPI. ED EXAM, GI/ABD - Physical Exam Exam: See Below Exam Limited By: No Limitations General Appearance: Alert, No Apparent Distress Eyes: Bilateral: Normal Appearance, EOMI Ears: Normal External Exam, Hearing Grossly Normal Nose: Normal Inspection, Normal Mucosa, No Blood Throat/Mouth: Normal Inspection, Normal Oropharynx, Normal Voice, No Airway Compromise Head: Atraumatic, Normocephalic Neck: Normal Inspection, Supple, Non-Tender, Full Range of Motion Respiratory/Chest: No Respiratory Distress, Lungs Clear, Normal Breath Sounds, No Accessory Muscle Use, Chest Non-Tender Cardiovascular: Normal Peripheral Pulses, Regular Rate, Rhythm, No Edema, No Gallop, No JVD, No Murmur, No Rub GI/Abdominal Exam: Soft, No Abnormal Bruit, No Mass, Pelvis Stable, Distended, Guarding, Tender (To LLQ with palpation), Abnormal Bowel Sounds (Hypoactive). No: Rigid, Rebound (Male) Exam: No Hernia, Normal Inspection, Circumcised Rectal (Males) Exam: Deferred Back Exam: Normal Inspection, Full Range of Motion. No: CVA Tenderness (L), CVA Tenderness (R) Extremities: Normal Inspection, Normal Range of Motion, Non-Tender, No Pedal Edema, Normal Capillary Refill Neurological: Alert, Oriented, CN II-XII Intact, Normal Cognition, Normal Gait, No Motor/Sensory Deficits Psychiatric: Normal Affect Skin Exam: Warm, Dry, Intact, Normal Color, No Rash. No: Cyanosis, Ecchymosis, Jaundice, Mottled, Pallor, Petechiae Course - Vital Signs Last Recorded V/S: Last Vital Signs Temp 98.5 F 07/25/20 23:12 Pulse 89 07/25/20 23:12 Resp 18 07/25/20 23:12 BP 168/100 H 07/25/20 23:12 Pulse Ox 97 07/25/20 23:12 - Orders/Labs/Meds Labs: Laboratory Tests 07/26/20 07/26/20 07/26/20 Range/Units 02:23 02:23 02:23 WBC 12.0 H (5.0-10.0) 10^3/uL RBC 3.98 L (4.6-6.2) 10^6/uL Hgb 11.7 L D (14.0-18.0) g/dL Hct 36.6 L (40.0-54.0) % MCV 92.0 (80-100) fL MCH 29.4 (27.0-34.0) pg MCHC 32.0 L (33.0-35.0) g/dL Plt Count 194 (150-450) 10^3/uL Neut % (Auto) 71.4 (42.2-75.2) % Lymph % (Auto) 16.9 L (20.5-50.1) % Knott % (Auto) 10.8 H (2-8) % Eos % (Auto) 0.7 L (1.0-3.0) % Baso % (Auto) 0.2 (0.0-1.0) % Sodium 140 (136-145) mmol/L Potassium 4.1 (3.5-5.1) mmol/L Chloride 102 (98-107) mmol/L Carbon Dioxide 28 (21-32) mmol/L Anion Gap 14.1 H (7-13) mEq/L BUN 31 H (7-18) mg/dL Creatinine 2.20 H (0.70-1.30) mg/dL Est Cr Clr Drug Dosing 24.57 mL/min Estimated GFR (MDRD) 29 BUN/Creatinine Ratio 14.1 (No establ ref range) Glucose 207 H (70-99) mg/dL Lactic Acid 1.5 (0.4-2.0) mmol/L Calcium 8.9 (8.5-10.1) mg/dL Total Bilirubin 0.3 (0.2-1.0) mg/dL AST 19 (15-37) U/L ALT 30 (16-63) U/L Alkaline Phosphatase 109 (46-116) U/L C-Reactive Protein 6.1 H (0.0-0.9) mg/dL Total Protein 6.7 (6.4-8.2) g/dL Albumin 3.1 L (3.4-5.0) g/dL Globulin 3.6 Albumin/Globulin Ratio 0.86 Amylase 32 (25-115) U/L Lipase 75 (73-393) U/L Meds: Medications Discontinued Medications Generic Name Dose Route Start Last Admin Trade Name Freq PRN Reason Stop Dose Admin Metronidazole 500 mg 07/26/20 05:29 07/26/20 05:37 Metronidazole 250 Mg Tab PO 07/26/20 05:30 500 mg ONETIME ONE Administration - Radiology Interpretation Free Text/Narrative:: [facility] Final Radiology Report Call: [phone] assistance Online chat: [email or web address] Name: MILES MILLS Age: 79Years M Date: 07/26/2020 SSN: -- : [id number] Study: CT ABDOMEN PELVIS WO CONT Requesting Physician: Nyla John Images: [id number] Addl Studies: Provided Clinical History: LLQ pain; WBC 12k; Watery stools Contrast: Without Contrast Medium: Contrast Amount: Contrast Method: Page 1 of 2 PROCEDURE INFORMATION: Exam: CT Abdomen And Pelvis Without Contrast Exam date and time: 07/26/2020 3:38 AM Age: 79 years old Clinical indication: Left lower quadrant abdominal pain, watery stools, WBC 43040. TECHNIQUE: Imaging protocol: Computed tomography of the abdomen and pelvis without contrast. Radiation optimization: All CT scans at this facility use at least one of these dose optimization techniques: automated exposure control; mA and/or kV adjustment per patient size (includes targeted exams where dose is matched to clinical indication); or iterative reconstruction. COMPARISON: CT Abdomen/Pelvis 12/17/2016 10:55 AM FINDINGS: Trace atelectasis or scarring. Lung bases are otherwise clear. Pancreas is mildly atrophic. Solid abdominal organs are otherwise unremarkable by unenhanced examination. No radiopaque urinary tract stones, hydronephrosis or ureteral dilatation. Small amount of radiopaque debris in the dependent gallbladder which suggests stones and/or sludge. No pericholecystic inflammatory changes or biliary ductal dilatation. Multiple descending and sigmoid predominant colonic diverticula are present. Mild pericolonic inflammatory stranding is present at the level of the distal descending/proximal sigmoid colon at level of diverticular disease. No fluid collection or extraluminal gas amongst this area. Bowel is otherwise unremarkable by unenhanced examination. The appendix is not identified though no pericecal inflammatory changes. Prostate is mildly enlarged. Aortoiliac atherosclerotic calcification. No abdominal aortic aneurysm. Posterior spinal hardware is present spanning L1-S1 levels. Mild stable chronic appearing compression deformity is present involving T11 vertebral body. IMPRESSION: 1. Colonic diverticulosis with associated mild inflammatory changes at the level of the distal descending/proximal sigmoid colon compatible with diverticulitis. No evidence of abscess or perforation. 2. Small amount of radiopaque debris in the gallbladder which suggests stones and/or sludge. Thank you for allowing us to participate in the care of your patient. Dictated and Authenticated by: Wojciech Rodriguez MD 07/26/2020 5:21 AM Central Time ([place] & [place]) - Re-Assessments/Exams Free Text/Narrative Re-Assessment/Exam: 07/26/[address] abdomen/pelvis while labs pending. Findings of examination, lab work, and imaging reviewed with patient and . Will treat diverticulosis with metronidazole. Discussed supportive cares for abdominal pain. Patient instructed to follow up with primary care provider regarding today's visit. Red flag signs and symptoms which would warrant reevaluation reviewed. Patient verbalized understanding and agreement with the plan of care. Departure - Departure Time of Disposition: 05:23 Disposition: Home, Self-Care 01 Condition: Good Clinical Impression: Diverticulitis - Discharge Information *PRESCRIPTION DRUG MONITORING PROGRAM REVIEWED*: Not Applicable *COPY OF PRESCRIPTION DRUG MONITORING REPORT IN PATIENT MEÑO: Not Applicable Instructions: Diverticulitis, [id number] Referrals: PCP,None [Primary Care Provider] - Forms: ED Department Discharge Additional Instructions: Rx: metronidazole 1.) Take all of your antibiotic until gone, even as symptoms improve. 2.) Drink plenty of water to stay hydrated and keep bowel movements soft. 3.) Follow up with primary care provider following course of antibiotics, or sooner should symptoms persist or worsen. Sepsis Event Note (ED) - Evaluation Sepsis Screening Result: No Definite Risk
--- NOTE | 2020-07-26 05:21 | CT ---
PROCEDURE INFORMATION: Exam: CT Abdomen And Pelvis Without Contrast Exam date and time: 07/26/2020 3:38 AM Age: 79 years old Clinical indication: Left lower quadrant abdominal pain, watery stools, WBC 99075. TECHNIQUE: Imaging protocol: Computed tomography of the abdomen and pelvis without contrast. Radiation optimization: All CT scans at this facility use at least one of these dose optimization techniques: automated exposure control; mA and/or kV adjustment per patient size (includes targeted exams where dose is matched to clinical indication); or iterative reconstruction. COMPARISON: CT Abdomen/Pelvis 12/17/2016 10:55 AM FINDINGS: Trace atelectasis or scarring. Lung bases are otherwise clear. Pancreas is mildly atrophic. Solid abdominal organs are otherwise unremarkable by unenhanced examination. No radiopaque urinary tract stones, hydronephrosis or ureteral dilatation. Small amount of radiopaque debris in the dependent gallbladder which suggests stones and/or sludge. No pericholecystic inflammatory changes or biliary ductal dilatation. Multiple descending and sigmoid predominant colonic diverticula are present. Mild pericolonic inflammatory stranding is present at the level of the distal descending/proximal sigmoid colon at level of diverticular disease. No fluid collection or extraluminal gas amongst this area. Bowel is otherwise unremarkable by unenhanced examination. The appendix is not identified though no pericecal inflammatory changes. Prostate is mildly enlarged. Aortoiliac atherosclerotic calcification. No abdominal aortic aneurysm. Posterior spinal hardware is present spanning L1-S1 levels. Mild stable chronic appearing compression deformity is present involving T11 vertebral body. IMPRESSION: 1. Colonic diverticulosis with associated mild inflammatory changes at the level of the distal descending/proximal sigmoid colon compatible with diverticulitis. No evidence of abscess or perforation. 2. Small amount of radiopaque debris in the gallbladder which suggests stones and/or sludge.
[2020-07-26] MEDS ORDERED: metroNIDAZOLE 250 MG Tab PO ONE (05:29)
== END 2020-07-26 05:40 | disposition home or self-care (01) ==
LOC: DL.ED 22:31
DX: K57.32 Diverticulitis of large intestine without perforation or abscess without bleeding (principal); E78.00 Pure hypercholesterolemia, unspecified; I12.9 Hypertensive chronic kidney disease with stage 1 through stage 4 chronic kidney disease, or unspecified chronic kidney disease; E11.22 Type 2 diabetes mellitus with diabetic chronic kidney disease; N18.9 Chronic kidney disease, unspecified; K21.9 Gastro-esophageal reflux disease without esophagitis; Z88.8 Allergy status to other drugs, medicaments and biological substances; Z79.82 Long term (current) use of aspirin; Z79.4 Long term (current) use of insulin; Z79.899 Other long term (current) drug therapy; Z91.048 Other nonmedicinal substance allergy status
CPT/HCPCS: 36415; 74176; 80053; 82150; 83605; 83690; 85025; 86140; 99284; 99284-25; A9270-GY

== ENCOUNTER 2022-09-24 12:39 | Emergency (ER) | payer MEDICARE, OTHER ==
[2022-09-24] MEDS ORDERED: Albuterol/Ipratropium 3.0-0.5 MG/3 ML Neb Soln NEB ONE (12:52)
[2022-09-24] MEDS ORDERED: Benzonatate 100 MG Cap PO ONE (12:52)
[2022-09-24 13:10] VITALS: BP 135/75
[2022-09-24 13:18] VITALS: PULSE 68
== END 2022-09-24 13:49 | disposition home or self-care (01) ==
LOC: DL.ED 12:39
DX: T17.998A Other foreign object in respiratory tract, part unspecified causing other injury, initial encounter (principal); I12.9 Hypertensive chronic kidney disease with stage 1 through stage 4 chronic kidney disease, or unspecified chronic kidney disease; E11.22 Type 2 diabetes mellitus with diabetic chronic kidney disease; N18.9 Chronic kidney disease, unspecified; E78.00 Pure hypercholesterolemia, unspecified; K21.9 Gastro-esophageal reflux disease without esophagitis; Z86.16 Personal history of COVID-19; Z88.6 Allergy status to analgesic agent; Z88.8 Allergy status to other drugs, medicaments and biological substances; Z88.1 Allergy status to other antibiotic agents; Z79.82 Long term (current) use of aspirin; Z79.4 Long term (current) use of insulin; Z79.899 Other long term (current) drug therapy
CPT/HCPCS: 71046; 94640; 99284; A9270; 99283; J7620-GY

== ENCOUNTER 2023-10-22 17:25 | Inpatient (IN) | payer MEDICARE, OTHER ==
[2023-10-22] MEDS: Sodium Chloride 0.9% 1,000 ML IV ONE ×2 (18:23→19:39)
[2023-10-22 18:24] LABS: BASOPHILS PERCENT AUTO 0.2 % (0.0-1.0); HEMOGLOBIN 12.5 g/dL (14.0-18.0); LYMPHOCYTES PERCENT AUTO 4.9 % (20.5-50.1); MEAN CORPUSCULAR HEMOGLOBIN 29.4 pg (27.0-34.0); MEAN CORPUSCULAR HGB CONC 32.9 g/dL (33.0-35.0); MEAN CORPUSCULAR VOLUME 89.4 fL (80-100); MONOCYTES PERCENT AUTO 8.4 % (2-8); NEUTROPHILS PERCENT AUTO 86.5 % (42.2-75.2); PLATELET COUNT,PLT 160 10^3/uL (150-450); RED BLOOD CELL COUNT 4.25 10^6/uL (4.6-6.2); WHITE BLOOD CELL COUNT,WBC 5.7 10^3/uL (5.0-10.0)
[2023-10-22] MEDS: Ondansetron 4 MG/2 ML SDV IVPUSH ONE (18:24)
[2023-10-22] MEDS: Sodium Chloride 0.9% 10 ML Syringe FLUSH PRN (18:24)
[2023-10-22 18:46] LABS: ALBUMIN 3.2 g/dL (3.4-5.0); ANION GAP 14.2 mEq/L (7-13); BILIRUBIN TOTAL 0.4 mg/dL (0.2-1.0); C-REACTIVE PROTEIN 19.29 ng/dL (<=0.50); CALCIUM 8.6 mg/dL (8.5-10.1); CREATININE 2.94 mg/dL (0.70-1.30); EST CRCL DRUG DOSING (CG) 16.85 mL/min; MAGNESIUM 1.7 mg/dL (1.8-2.4); POTASSIUM,K 3.2 mmol/L (3.5-5.1); PROTEIN TOTAL,TP 7.1 g/dL (6.4-8.2)
[2023-10-22 18:52] LABS: A/G RATIO 0.82
[2023-10-22] MEDS: Potassium Chloride 10 MEQ Tab.ER PO ONE (19:38)
[2023-10-22] MEDS: Magnesium Sulfate/Water 2 GM in Premix Bag 1 BAG IV ONE (19:38)
[2023-10-22] MEDS ORDERED: traMADol 50 MG Tab PO PRN (20:34)
[2023-10-22] MEDS ORDERED: Non-Formulary Medication 1 Each (Melatonin [Melatonin] 10 MG Tablet) PO SCH (21:00)
[2023-10-22] MEDS: Acetaminophen 325 MG Tab PO PRN (21:30)
[2023-10-22] MEDS: Tamsulosin 0.4 MG Cap.ER PO SCH (21:46)
[2023-10-22] MEDS: Aspirin 81 MG Tab.EC PO SCH (21:47)
[2023-10-22] MEDS: Metoprolol Tartrate 50 MG Tab PO SCH (21:47)
[2023-10-22] MEDS: traZODone 50 MG Tab PO SCH (21:48)
[2023-10-22] MEDS: Melatonin 3 MG Tab PO SCH (21:48)
[2023-10-22] MEDS: Finasteride 5 MG Tab PO SCH (21:48)
[2023-10-22] MEDS: Gabapentin 400 MG Cap PO SCH (21:48)
[2023-10-22] MEDS: Simvastatin 10 MG Tab PO SCH (21:48)
[2023-10-22] MEDS: Hydroxychloroquine 200 MG Tab PO SCH (21:48)
[2023-10-22] MEDS: traMADol 50 MG Tab PO PRN (21:49)
[2023-10-22] MEDS: Niacin 500 MG Tab.ER PO SCH (22:42)
[2023-10-23] MEDS: Loperamide 2 MG Cap PO PRN
[2023-10-23] MEDS: Omeprazole 20 MG Cap.CR PO SCH (05:07)
[2023-10-23 06:26] LABS: HEMATOCRIT 34.9 % (40.0-54.0); HEMOGLOBIN 11.2 g/dL (14.0-18.0); MEAN CORPUSCULAR HEMOGLOBIN 28.9 pg (27.0-34.0); MEAN CORPUSCULAR HGB CONC 32.1 g/dL (33.0-35.0); MEAN CORPUSCULAR VOLUME 90.2 fL (80-100); RED BLOOD CELL COUNT 3.87 10^6/uL (4.6-6.2); WHITE BLOOD CELL COUNT,WBC 4.1 10^3/uL (5.0-10.0)
[2023-10-23 06:39] LABS: ANION GAP 12.2 mEq/L (7-13); CALCIUM 8.1 mg/dL (8.5-10.1); CREATININE 2.9 mg/dL (0.70-1.30); EST CRCL DRUG DOSING (CG) 17.08 mL/min; POTASSIUM,K 3.2 mmol/L (3.5-5.1)
[2023-10-23] MEDS ORDERED: Non-Formulary Medication 1 Each (Insulin Aspart 100 UNIT/ML Pen) SUBCUT SCH (08:00)
[2023-10-23] MEDS: Insulin Lispro 100 Units/ML 3 ML Vial SUBCUT SCH (08:10)
[2023-10-23] MEDS: amLODIPine 5 MG Tab PO SCH (08:12)
[2023-10-23] MEDS: DULoxetine 30 MG Cap PO SCH (08:13)
[2023-10-23] MEDS: Bumetanide 1 MG Tab PO SCH (08:13)
[2023-10-23] MEDS ORDERED: Non-Formulary Medication 1 Each (Zinc Sulfate [Zinc] 50 MG Tablet) PO SCH (09:00)
[2023-10-23] MEDS: [UNRECOGNIZED DRUG - MIXTURE] PO SCH (09:18)
[2023-10-23] MEDS: PROSVENT PO SCH (09:18)
[2023-10-23] MEDS: Dextrose 5%-0.9% NaCl 1,000 ML IV SCH (12:30)
[2023-10-23] MEDS: Potassium Chloride 10 MEQ Tab.ER PO ONE (12:40)
[2023-10-23] MEDS: Non-Formulary Medication 1 Each (Budesonide/Glycopyr/Formoterol [Breztri Aerosphere Inhale IH SCH (17:23)
[2023-10-23] MEDS: Nirmatrelvir/Ritonavir 150 MG/100 MG Dose Pack (Renal Dose) PO SCH (19:16)
[2023-10-23] MEDS: Dexamethasone 6 MG TABLET PO ONE (20:36)
[2023-10-24 06:38] LABS: HEMATOCRIT 34.3 % (40.0-54.0); MEAN CORPUSCULAR HEMOGLOBIN 28.7 pg (27.0-34.0); MEAN CORPUSCULAR HGB CONC 32.1 g/dL (33.0-35.0); MEAN CORPUSCULAR VOLUME 89.6 fL (80-100); RED BLOOD CELL COUNT 3.83 10^6/uL (4.6-6.2); WHITE BLOOD CELL COUNT,WBC 6.1 10^3/uL (5.0-10.0)
[2023-10-24 06:52] LABS: CALCIUM 8.2 mg/dL (8.5-10.1); CREATININE 2.95 mg/dL (0.70-1.30); EST CRCL DRUG DOSING (CG) 16.79 mL/min
[2023-10-24] MEDS: Dexamethasone 6 MG TABLET PO SCH (09:39)
[2023-10-24] MEDS: Potassium Chloride 20 MEQ in Premix Bag 1 BAG IV ONE ×3 (10:36→20:00)
[2023-10-24] MEDS: Magnesium Sulfate/Water 2 GM in Premix Bag 1 BAG IV ONE (18:09)
[2023-10-25 06:47] LABS: HEMATOCRIT 39.7 % (40.0-54.0); MEAN CORPUSCULAR HGB CONC 32.7 g/dL (33.0-35.0); MEAN CORPUSCULAR VOLUME 88.6 fL (80-100); RED BLOOD CELL COUNT 4.48 10^6/uL (4.6-6.2); WHITE BLOOD CELL COUNT,WBC 7.4 10^3/uL (5.0-10.0)
[2023-10-25 07:02] LABS: ANION GAP 16.6 mEq/L (7-13); CALCIUM 8.7 mg/dL (8.5-10.1); CREATININE 3.2 mg/dL (0.70-1.30); EST CRCL DRUG DOSING (CG) 15.48 mL/min; POTASSIUM,K 3.6 mmol/L (3.5-5.1)
[2023-10-25] MEDS: Sodium Chloride 0.9% 1,000 ML IV SCH (17:21)
[2023-10-25] MEDS: Ondansetron 4 MG/2 ML SDV IVPUSH PRN (17:45)
[2023-10-25] MEDS: Ziprasidone Mesylate 20 MG Vial IM ONE (22:15)
[2023-10-26 06:36] LABS: MEAN CORPUSCULAR HEMOGLOBIN 28.8 pg (27.0-34.0); MEAN CORPUSCULAR HGB CONC 32.4 g/dL (33.0-35.0); MEAN CORPUSCULAR VOLUME 88.7 fL (80-100); RED BLOOD CELL COUNT 4.17 10^6/uL (4.6-6.2)
[2023-10-26 06:49] LABS: ANION GAP 14.5 mEq/L (7-13); CREATININE 2.91 mg/dL (0.70-1.30); EST CRCL DRUG DOSING (CG) 17.02 mL/min; POTASSIUM,K 3.5 mmol/L (3.5-5.1)
[2023-10-26] MEDS: Vancomycin 125 MG Cap PO SCH (13:36)
[2023-10-26] MEDS: Bumetanide 1 MG Tab PO SCH (21:46)
[2023-10-27] MEDS: Menthol/Zinc Oxide Ointment 113 GM Tube TOP PRN (02:00)
[2023-10-27] MEDS: Bumetanide 1 MG Tab PO SCH (08:53)
[2023-10-27 09:56] LABS: HEMATOCRIT 38.1 % (40.0-54.0); HEMOGLOBIN 12.4 g/dL (14.0-18.0); MEAN CORPUSCULAR HEMOGLOBIN 28.6 pg (27.0-34.0); MEAN CORPUSCULAR HGB CONC 32.5 g/dL (33.0-35.0); PLATELET COUNT,PLT 128 10^3/uL (150-450); RED BLOOD CELL COUNT 4.33 10^6/uL (4.6-6.2); WHITE BLOOD CELL COUNT,WBC 14.6 10^3/uL (5.0-10.0)
[2023-10-27 09:57] LABS: EOSINOPHILS PERCENT AUTO 0.1 % (1.0-3.0); LYMPHOCYTES PERCENT AUTO 2.3 % (20.5-50.1); MONOCYTES PERCENT AUTO 5.3 % (2-8); NEUTROPHILS PERCENT AUTO 92.3 % (42.2-75.2)
[2023-10-27 10:07] LABS: ANION GAP 14.2 mEq/L (7-13); CALCIUM 7.9 mg/dL (8.5-10.1); CREATININE 2.75 mg/dL (0.70-1.30); EST CRCL DRUG DOSING (CG) 18.02 mL/min; POTASSIUM,K 3.2 mmol/L (3.5-5.1)
[2023-10-27 10:46] LABS: BAND PERCENT MAN 2 %; LYMPHOCYTES PERCENT MAN 3 % (20-50); MONOCYTES PERCENT MAN 5 % (2-8); SEG NEUTROPHILS PERCENT MAN 90 % (42-75)
[2023-10-27] MEDS: Calcium Gluconate 2 GM in Sodium Chloride 0.9% 100 ML IV ONE (14:01)
[2023-10-27] MEDS: Potassium Chloride 20 MEQ in Premix Bag 1 BAG IV ONE (14:25)
[2023-10-27] MEDS: Bumetanide 1 MG/4 ML MDV IVPUSH STA (14:27)
[2023-10-27] MEDS: Potassium Chloride 10 MEQ Tab.ER PO ONE (14:31)
[2023-10-27] MEDS: Albuterol/Ipratropium 3.0-0.5 MG/3 ML Neb Soln NEB SCH (14:40)
[2023-10-27] MEDS: Calcium Carbonate 500 MG Tab.Chew PO ONE (15:25)
[2023-10-27] MEDS: Magnesium Sulfate/Water 2 GM in Premix Bag 1 BAG IV ONE (16:37)
[2023-10-28 06:53] LABS: BASOPHILS PERCENT AUTO 0.1 % (0.0-1.0); HEMATOCRIT 38.1 % (40.0-54.0); HEMOGLOBIN 12.5 g/dL (14.0-18.0); LYMPHOCYTES PERCENT AUTO 3.4 % (20.5-50.1); MEAN CORPUSCULAR HEMOGLOBIN 28.6 pg (27.0-34.0); MEAN CORPUSCULAR HGB CONC 32.8 g/dL (33.0-35.0); MEAN CORPUSCULAR VOLUME 87.2 fL (80-100); MONOCYTES PERCENT AUTO 3.8 % (2-8); NEUTROPHILS PERCENT AUTO 92.7 % (42.2-75.2); PLATELET COUNT,PLT 107 10^3/uL (150-450); RED BLOOD CELL COUNT 4.37 10^6/uL (4.6-6.2); WHITE BLOOD CELL COUNT,WBC 17.2 10^3/uL (5.0-10.0)
[2023-10-28 07:07] LABS: ANION GAP 16.6 mEq/L (7-13); CALCIUM 7.7 mg/dL (8.5-10.1); CREATININE 2.81 mg/dL (0.70-1.30); EST CRCL DRUG DOSING (CG) 17.63 mL/min; POTASSIUM,K 3.6 mmol/L (3.5-5.1)
[2023-10-28] MEDS: Calcium Carbonate 500 MG Tab.Chew PO SCH (12:19)
[2023-10-28] MEDS: guaiFENesin 600 MG Tab.ER PO SCH (16:01)
[2023-10-29 06:35] LABS: HEMATOCRIT 35.4 % (40.0-54.0); HEMOGLOBIN 11.9 g/dL (14.0-18.0); MEAN CORPUSCULAR HEMOGLOBIN 28.8 pg (27.0-34.0); MEAN CORPUSCULAR HGB CONC 33.6 g/dL (33.0-35.0); MEAN CORPUSCULAR VOLUME 85.7 fL (80-100); PLATELET COUNT,PLT 113 10^3/uL (150-450); RED BLOOD CELL COUNT 4.13 10^6/uL (4.6-6.2); WHITE BLOOD CELL COUNT,WBC 16.2 10^3/uL (5.0-10.0)
[2023-10-29 06:46] LABS: ANION GAP 15.1 mEq/L (7-13); CALCIUM 7.9 mg/dL (8.5-10.1); CREATININE 2.61 mg/dL (0.70-1.30); EST CRCL DRUG DOSING (CG) 18.98 mL/min; POTASSIUM,K 3.1 mmol/L (3.5-5.1)
[2023-10-29 06:47] LABS: BASOPHILS PERCENT AUTO 0.1 % (0.0-1.0); LYMPHOCYTES PERCENT AUTO 2.7 % (20.5-50.1); MONOCYTES PERCENT AUTO 5.6 % (2-8); NEUTROPHILS PERCENT AUTO 91.6 % (42.2-75.2)
[2023-10-29 07:46] LABS: LYMPHOCYTES PERCENT MAN 3 % (20-50); MONOCYTES PERCENT MAN 7 % (2-8); SEG NEUTROPHILS PERCENT MAN 90 % (42-75)
[2023-10-29] MEDS ORDERED: 50% Dextrose in Water 50 ML Syringe IVPUSH PRN (09:54)
[2023-10-29] MEDS ORDERED: Glucagon,Human Recombinant 1 MG Vial IM PRN (09:54)
[2023-10-29] MEDS: Insulin Lispro 100 Units/ML 3 ML Vial SUBCUT ONE ×2 (10:21→17:49)
[2023-10-29 10:25] LABS: BASE EXCESS ARTERIAL -7 mmol/L ((-2)-(+3)); BICARBONATE,ARTERIAL 17.5 mmol/L (22-26); O2 DELIVERY DEVICE ROOM AIR; O2 SATURATION ARTERIAL 89 % (95-100); PCO2 ARTERIAL 34 mmHg (35-45); PH,ARTERIAL 7.34 (7.35-7.45); PO2 ARTERIAL 61 mmHg (70-100)
[2023-10-29 10:26] LABS: ALLEN TEST PERFORMED
[2023-10-29] MEDS: Potassium Chloride 20 MEQ in Premix Bag 1 BAG IV ONE ×2 (12:09→15:57)
[2023-10-29] MEDS: Potassium Chloride 10 MEQ Tab.ER PO ONE (15:10)
[2023-10-30 06:30] LABS: EOSINOPHILS PERCENT AUTO 0.1 % (1.0-3.0); HEMATOCRIT 35.7 % (40.0-54.0); HEMOGLOBIN 11.7 g/dL (14.0-18.0); LYMPHOCYTES PERCENT AUTO 4.4 % (20.5-50.1); MEAN CORPUSCULAR HEMOGLOBIN 28.5 pg (27.0-34.0); MEAN CORPUSCULAR HGB CONC 32.8 g/dL (33.0-35.0); MEAN CORPUSCULAR VOLUME 87.1 fL (80-100); MONOCYTES PERCENT AUTO 5.4 % (2-8); PLATELET COUNT,PLT 85 10^3/uL (150-450); WHITE BLOOD CELL COUNT,WBC 19.1 10^3/uL (5.0-10.0)
[2023-10-30 06:44] LABS: CALCIUM 8.1 mg/dL (8.5-10.1); CREATININE 2.77 mg/dL (0.70-1.30); EST CRCL DRUG DOSING (CG) 17.89 mL/min
[2023-10-30 06:50] LABS: BASOPHILS PERCENT AUTO 0.1 % (0.0-1.0)
[2023-10-30] MEDS: Pantoprazole 40 MG in Sodium Chloride 0.9% 100 ML IV SCH (13:51)
[2023-10-30] MEDS: Ondansetron 4 MG/2 ML SDV IVPUSH PRN (17:20)
[2023-10-30] MEDS: Ondansetron 4 MG/2 ML SDV IVPUSH ONE (17:30)
[2023-10-30] MEDS: traZODone 50 MG Tab PO SCH (20:07)
[2023-10-30] MEDS: Piperacillin/Tazobactam 4.5 GM in Sodium Chloride 0.9% 100 ML IV ONE (20:45)
[2023-10-30] MEDS: Dextrose 5%-0.9% NaCl 1,000 ML IV SCH (20:45)
[2023-10-30] MEDS: Piperacillin/Tazobactam 4.5 GM in Sodium Chloride 0.9% 100 ML IV SCH (21:21)
[2023-10-31] MEDS: Piperacillin/Tazobactam 4.5 GM in Sodium Chloride 0.9% 100 ML IV SCH (00:22)
[2023-10-31 06:32] LABS: BASOPHILS PERCENT AUTO 0.1 % (0.0-1.0); HEMATOCRIT 33.3 % (40.0-54.0); HEMOGLOBIN 11.1 g/dL (14.0-18.0); LYMPHOCYTES PERCENT AUTO 3.1 % (20.5-50.1); MEAN CORPUSCULAR HEMOGLOBIN 28.7 pg (27.0-34.0); MEAN CORPUSCULAR HGB CONC 33.3 g/dL (33.0-35.0); MONOCYTES PERCENT AUTO 5.2 % (2-8); NEUTROPHILS PERCENT AUTO 91.6 % (42.2-75.2); PLATELET COUNT,PLT 70 10^3/uL (150-450); RED BLOOD CELL COUNT 3.87 10^6/uL (4.6-6.2); WHITE BLOOD CELL COUNT,WBC 19.3 10^3/uL (5.0-10.0)
[2023-10-31 06:48] LABS: ANION GAP 17.8 mEq/L (7-13); CALCIUM 8.2 mg/dL (8.5-10.1); CREATININE 2.69 mg/dL (0.70-1.30); EST CRCL DRUG DOSING (CG) 18.42 mL/min; POTASSIUM,K 3.8 mmol/L (3.5-5.1)
[2023-10-31] MEDS ORDERED: Sodium Chloride 0.9% 100 ML IV PRN (08:56)
[2023-10-31] MEDS: Metoclopramide 10 MG/2 ML SDV IVPUSH SCH (13:20)
[2023-10-31 23:23] LABS: APPEARANCE,URINE SLIGHTLY CLOUDY (CLEAR); BILIRUBIN,URINE NEGATIVE (NEGATIVE); COLOR,URINE YELLOW (YELLOW); GLUCOSE,URINE 500 (NEGATIVE); KETONES,URINE 40 (NEGATIVE); LEUKOCYTE ESTERASE,URINE SMALL (NEGATIVE); NITRITE,URINE POSITIVE (NEGATIVE); OCCULT BLOOD,URINE LARGE (NEGATIVE); PH,URINE 5.5 (5.0-9.0); PROTEIN,URINE 100 (NEGATIVE); UROBILINOGEN,URINE 0.2 mg/dL (0.2-1.0)
[2023-10-31 23:47] LABS: BACTERIA,URINE MANY /HPF (0-FEW/HPF); EPITHELIAL CELLS,URINE FEW /HPF (NOT SEEN); RBC,URINE 75-100 /HPF (0-5); WBC,URINE 75-100 /HPF (0-5/HPF)
[2023-11-01 06:07] LABS: BASOPHILS PERCENT AUTO 0.1 % (0.0-1.0); EOSINOPHILS PERCENT AUTO 0.1 % (1.0-3.0); HEMATOCRIT 32.7 % (40.0-54.0); HEMOGLOBIN 10.8 g/dL (14.0-18.0); LYMPHOCYTES PERCENT AUTO 3.9 % (20.5-50.1); MEAN CORPUSCULAR HEMOGLOBIN 28.7 pg (27.0-34.0); MONOCYTES PERCENT AUTO 7.1 % (2-8); PLATELET COUNT,PLT 68 10^3/uL (150-450); RED BLOOD CELL COUNT 3.76 10^6/uL (4.6-6.2); WHITE BLOOD CELL COUNT,WBC 15.3 10^3/uL (5.0-10.0)
[2023-11-01 06:21] LABS: NEUTROPHILS PERCENT AUTO 88.8 % (42.2-75.2)
[2023-11-01 06:31] LABS: CALCIUM 8.2 mg/dL (8.5-10.1); CREATININE 2.81 mg/dL (0.70-1.30); EST CRCL DRUG DOSING (CG) 17.63 mL/min
[2023-11-01] MEDS: Insulin Lispro 100 Units/ML 3 ML Vial SUBCUT SCH (12:23)
[2023-11-01] MEDS: Pantoprazole 40 MG Vial IVPUSH SCH (13:53)
[2023-11-01] MEDS: Albuterol/Ipratropium 3.0-0.5 MG/3 ML Neb Soln NEB PRN (20:00)
[2023-11-01] MEDS: Melatonin 3 MG Tab PO PRN (20:00)
[2023-11-02 09:23] LABS: BASOPHILS PERCENT AUTO 0.2 % (0.0-1.0); EOSINOPHILS PERCENT AUTO 0.4 % (1.0-3.0); HEMATOCRIT 33.4 % (40.0-54.0); LYMPHOCYTES PERCENT AUTO 7.8 % (20.5-50.1); MEAN CORPUSCULAR HEMOGLOBIN 28.5 pg (27.0-34.0); MEAN CORPUSCULAR HGB CONC 32.9 g/dL (33.0-35.0); MEAN CORPUSCULAR VOLUME 86.5 fL (80-100); MONOCYTES PERCENT AUTO 8.8 % (2-8); NEUTROPHILS PERCENT AUTO 82.8 % (42.2-75.2); PLATELET COUNT,PLT 73 10^3/uL (150-450); RED BLOOD CELL COUNT 3.86 10^6/uL (4.6-6.2); WHITE BLOOD CELL COUNT,WBC 11.6 10^3/uL (5.0-10.0)
[2023-11-02 09:37] LABS: ANION GAP 14.3 mEq/L (7-13); CALCIUM 8.4 mg/dL (8.5-10.1); CREATININE 2.88 mg/dL (0.70-1.30); EST CRCL DRUG DOSING (CG) 17.2 mL/min; POTASSIUM,K 3.3 mmol/L (3.5-5.1)
[2023-11-02 11:05] VITALS: BP 103/57; PULSE 86
== END 2023-11-02 12:02 | disposition swing bed (61) | DRG 177 ==
LOC: DL.ED 17:25 → DL.MS 19:26
PROVIDERS: ADMIT Internal Medicine; ATTEND Internal Medicine
PROC: 3E0333Z Introduction of Anti-inflammatory into Peripheral Vein, Percutaneous Approach (ICD-10-PCS; 2023-10-23)
PROC: 0T9B70Z Drainage of Bladder with Drainage Device, Via Natural or Artificial Opening (ICD-10-PCS; 2023-10-24)
PROC: 4A033R1 Measurement of Arterial Saturation, Peripheral, Percutaneous Approach (ICD-10-PCS; principal; 2023-10-29)
DX: U07.1 COVID-19 (principal); J12.82 Pneumonia due to coronavirus disease 2019; N17.9 Acute kidney failure, unspecified; A04.72 Enterocolitis due to Clostridium difficile, not specified as recurrent; K57.92 Diverticulitis of intestine, part unspecified, without perforation or abscess without bleeding; K56.7 Ileus, unspecified; N30.00 Acute cystitis without hematuria; G72.81 Critical illness myopathy; H54.7 Unspecified visual loss; E11.9 Type 2 diabetes mellitus without complications; E78.00 Pure hypercholesterolemia, unspecified; J44.9 Chronic obstructive pulmonary disease, unspecified; K21.9 Gastro-esophageal reflux disease without esophagitis; N18.9 Chronic kidney disease, unspecified; N40.0 Benign prostatic hyperplasia without lower urinary tract symptoms; E66.9 Obesity, unspecified; M54.9 Dorsalgia, unspecified; G89.29 Other chronic pain; E11.22 Type 2 diabetes mellitus with diabetic chronic kidney disease; Z96.619 Presence of unspecified artificial shoulder joint; E87.6 Hypokalemia; E83.42 Hypomagnesemia; I12.9 Hypertensive chronic kidney disease with stage 1 through stage 4 chronic kidney disease, or unspecified chronic kidney disease; E11.628 Type 2 diabetes mellitus with other skin complications; R33.9 Retention of urine, unspecified; D72.829 Elevated white blood cell count, unspecified; R06.6 Hiccough; Z88.8 Allergy status to other drugs, medicaments and biological substances; Z88.1 Allergy status to other antibiotic agents; Z79.82 Long term (current) use of aspirin; Z79.899 Other long term (current) drug therapy; Z79.4 Long term (current) use of insulin; Z87.19 Personal history of other diseases of the digestive system; Z87.81 Personal history of (healed) traumatic fracture; Z68.30 Body mass index [BMI] 30.0-30.9, adult; Z86.16 Personal history of COVID-19; Z98.49 Cataract extraction status, unspecified eye; Z90.89 Acquired absence of other organs; Z90.49 Acquired absence of other specified parts of digestive tract; Z98.1 Arthrodesis status; Z98.890 Other specified postprocedural states
CPT/HCPCS: 36415; 36600; 51702; 51798; 74176; 80048; 80053; 81001; 82803; 82947; 83735; 85025; 85027; 86140; 87045; 87046; 87086; 87324; 87328; 87329; 87338; 87493; 87804; 87899; 92610-GN; 93005; 94640; 96361; 96374; 97161-GP; 97166-GO; 97530-GO; 97530-GP; 99223; 99233; 99239; 99284; 99284-25; A9270-GY; J1815-GY; J2405; J2470; J2543; J2765; J3475; J3480; J3486; J3490; J7030; J7042; J7620-GY; J8540; U0002

== ENCOUNTER 2023-11-02 09:24 | Inpatient (IN) | payer MEDICARE, OTHER ==
[2023-11-02] MEDS ORDERED: Albuterol/Ipratropium 3.0-0.5 MG/3 ML Neb Soln NEB PRN (10:18)
[2023-11-02] MEDS ORDERED: 50% Dextrose in Water 50 ML Syringe IVPUSH PRN (10:18)
[2023-11-02] MEDS ORDERED: Glucagon,Human Recombinant 1 MG Vial IM PRN ×2 (10:18)
[2023-11-02] MEDS ORDERED: Sodium Chloride 0.9% 100 ML IV PRN (10:18)
[2023-11-02] MEDS ORDERED: Acetaminophen 325 MG Tab PO PRN (10:18)
[2023-11-02] MEDS ORDERED: Sodium Chloride 0.9% 10 ML Syringe FLUSH PRN ×2 (10:18)
[2023-11-02] MEDS ORDERED: traMADol 50 MG Tab PO PRN (10:18)
[2023-11-02] MEDS: Insulin Lispro 100 Units/ML 3 ML Vial SUBCUT SCH ×2 (13:34→13:35)
[2023-11-02] MEDS: Calcium Carbonate 500 MG Tab.Chew PO SCH (13:35)
[2023-11-02] MEDS: Dextrose 5%-0.9% NaCl 1,000 ML IV SCH (14:06)
[2023-11-02] MEDS: Piperacillin/Tazobactam 4.5 GM in Sodium Chloride 0.9% 100 ML IV SCH (14:08)
[2023-11-02] MEDS: Metoclopramide 10 MG/2 ML SDV IVPUSH SCH (14:10)
[2023-11-02] MEDS: Albuterol/Ipratropium 3.0-0.5 MG/3 ML Neb Soln NEB SCH (15:10)
[2023-11-02] MEDS: Metoprolol Tartrate 50 MG Tab PO SCH (21:47)
[2023-11-02] MEDS: Melatonin 3 MG Tab PO PRN (21:48)
[2023-11-02] MEDS: traZODone 50 MG Tab PO SCH (21:48)
[2023-11-02] MEDS: Aspirin 81 MG Tab.EC PO SCH (21:52)
[2023-11-02] MEDS: Tamsulosin 0.4 MG Cap.ER PO SCH (21:52)
[2023-11-02] MEDS: guaiFENesin 600 MG Tab.ER PO SCH (21:52)
[2023-11-02] MEDS: Finasteride 5 MG Tab PO SCH (21:53)
[2023-11-02] MEDS: Hydroxychloroquine 200 MG Tab PO SCH (21:53)
[2023-11-02] MEDS: Gabapentin 400 MG Cap PO SCH (21:53)
[2023-11-02] MEDS: Simvastatin 10 MG Tab PO SCH (21:54)
[2023-11-02] MEDS: Sodium Chloride 0.9% 10 ML Syringe FLUSH SCH (21:54)
[2023-11-02] MEDS: Menthol/Zinc Oxide Ointment 113 GM Tube TOP PRN (21:56)
[2023-11-03 06:40] LABS: ANION GAP 14.4 mEq/L (7-13); BLOOD UREA NITROGEN,BUN 46 mg/dL (7-18); CALCIUM 8.1 mg/dL (8.5-10.1); CARBON DIOXIDE,CO2 22 mmol/L (21-32); CHLORIDE,CL 110 mmol/L (98-107); CREATININE 2.71 mg/dL (0.70-1.30); GLUCOSE RANDOM 174 mg/dL (70-99); POTASSIUM,K 3.4 mmol/L (3.5-5.1); SODIUM,NA 143 mmol/L (136-145)
[2023-11-03 06:41] LABS: HEMATOCRIT 31.2 % (40.0-54.0); HEMOGLOBIN 10.1 g/dL (14.0-18.0); MEAN CORPUSCULAR HEMOGLOBIN 28.4 pg (27.0-34.0); MEAN CORPUSCULAR HGB CONC 32.4 g/dL (33.0-35.0); MEAN CORPUSCULAR VOLUME 87.6 fL (80-100); RED BLOOD CELL COUNT 3.56 10^6/uL (4.6-6.2); WHITE BLOOD CELL COUNT,WBC 9.9 10^3/uL (5.0-10.0)
[2023-11-03 06:43] LABS: ESTIMATED GFR 23 mL/min (>=60)
[2023-11-03] MEDS: DULoxetine 30 MG Cap PO SCH (09:54)
[2023-11-03] MEDS: amLODIPine 5 MG Tab PO SCH (09:54)
[2023-11-03] MEDS: Niacin 500 MG Tab.ER PO SCH (09:55)
[2023-11-03] MEDS: Pantoprazole 40 MG Vial IVPUSH SCH (09:59)
[2023-11-03] MEDS: Potassium Chloride 20 MEQ in Premix Bag 1 BAG IV ONE (12:20)
[2023-11-03] MEDS: Piperacillin/Tazobactam 4.5 GM in Sodium Chloride 0.9% 100 ML IV SCH (15:50)
[2023-11-03] MEDS: Metoclopramide 10 MG/2 ML SDV IVPUSH ONE (17:12)
[2023-11-04] MEDS: Ondansetron 4 MG/2 ML SDV IVPUSH PRN (11:01)
[2023-11-04 13:33] VITALS: BP 125/69; PULSE 77
== END 2023-11-04 14:20 | DRG 92 ==
LOC: DL.MS 10:29 → UNDOADMIN 12:00 → DL.MS 12:00
PROVIDERS: ADMIT Internal Medicine; ATTEND Internal Medicine
DX: G72.81 Critical illness myopathy (principal); K57.92 Diverticulitis of intestine, part unspecified, without perforation or abscess without bleeding; N39.0 Urinary tract infection, site not specified; E11.22 Type 2 diabetes mellitus with diabetic chronic kidney disease; I12.9 Hypertensive chronic kidney disease with stage 1 through stage 4 chronic kidney disease, or unspecified chronic kidney disease; N40.0 Benign prostatic hyperplasia without lower urinary tract symptoms; E78.00 Pure hypercholesterolemia, unspecified; J44.9 Chronic obstructive pulmonary disease, unspecified; N18.32 Chronic kidney disease, stage 3b; R53.1 Weakness; K21.9 Gastro-esophageal reflux disease without esophagitis; Z98.42 Cataract extraction status, left eye; Z98.41 Cataract extraction status, right eye; Z79.4 Long term (current) use of insulin; Z88.8 Allergy status to other drugs, medicaments and biological substances; Z90.89 Acquired absence of other organs; Z90.49 Acquired absence of other specified parts of digestive tract; Z98.1 Arthrodesis status
CPT/HCPCS: 36415; 80048; 82947; 85027; 94640; 97161-GP; 97165-GO; 97530-GO; 97530-GP; 99306; 99316; A9270-GY; J1815-GY; J2405; J2470; J2543; J2765; J3480; J3490; J7042; J7620-GY

== ENCOUNTER 2024-12-16 18:13 | Emergency (ER) | payer MEDICARE, OTHER ==
[2024-12-16] MEDS ORDERED: Sodium Chloride 0.9% 10 ML Syringe FLUSH PRN (18:38)
[2024-12-16 19:11] LABS: PLATELET COUNT,PLT 171 10^3/uL (150-450); RED BLOOD CELL COUNT 3.65 10^6/uL (4.6-6.2); WHITE BLOOD CELL COUNT,WBC 7.9 10^3/uL (5.0-10.0)
[2024-12-16 19:15] LABS: BASOPHILS PERCENT AUTO 0.4 % (0.0-1.0); EOSINOPHILS PERCENT AUTO 1.3 % (1.0-3.0); LYMPHOCYTES PERCENT AUTO 22.3 % (20.5-50.1); MONOCYTES PERCENT AUTO 11.6 % (2-8); NEUTROPHILS PERCENT AUTO 64.4 % (42.2-75.2)
[2024-12-16 19:30] LABS: A/G RATIO 1.0; ALANINE AMINOTRANSFERASE,ALT 19.0 U/L (16-63); ASPARTATE AMNIOTRANSFERASE,AST 10.0 U/L (15-37); BILIRUBIN TOTAL 0.2 mg/dL (0.2-1.0); BLOOD UREA NITROGEN,BUN 56.0 mg/dL (7-18); CARBON DIOXIDE,CO2 32.0 mmol/L (21-32); CHLORIDE,CL 102.0 mmol/L (98-107); CREATININE 3.35 mg/dL (0.70-1.30); EST CRCL DRUG DOSING (CG) 13.74 mL/min; GLUCOSE RANDOM 194.0 mg/dL (70-99); POTASSIUM,K 3.5 mmol/L (3.5-5.1); PROTEIN TOTAL,TP 7.0 g/dL (6.4-8.2); SODIUM,NA 143.0 mmol/L (136-145)
[2024-12-16 19:31] LABS: ESTIMATED GFR 17.0 mL/min (>=60)
[2024-12-16 19:44] LABS: BAND PERCENT MAN 2 %; LYMPHOCYTES PERCENT MAN 19 % (20-50); MONOCYTES PERCENT MAN 7 % (2-8); SEG NEUTROPHILS PERCENT MAN 72 % (42-75)
[2024-12-16 22:33] LABS: APPEARANCE,URINE CLEAR (CLEAR); GLUCOSE,URINE 250 (NEGATIVE); OCCULT BLOOD,URINE TRACE-INTACT (NEGATIVE)
[2024-12-16 22:54] LABS: EPITHELIAL CELLS,URINE RARE /HPF (NOT SEEN)
[2024-12-16 23:06] VITALS: BP 152/87; PULSE 73
== END 2024-12-16 22:51 | disposition home or self-care (01) ==
LOC: DL.ED 18:13
DX: E86.0 Dehydration (principal); I10 Essential (primary) hypertension; E78.00 Pure hypercholesterolemia, unspecified; K21.9 Gastro-esophageal reflux disease without esophagitis; J44.9 Chronic obstructive pulmonary disease, unspecified; E11.9 Type 2 diabetes mellitus without complications; Z88.6 Allergy status to analgesic agent; Z88.8 Allergy status to other drugs, medicaments and biological substances; Z79.82 Long term (current) use of aspirin; Z79.899 Other long term (current) drug therapy; Z86.16 Personal history of COVID-19
CPT/HCPCS: 36415; 70450; 80053; 81001; 83735; 84484; 85025; 86140; 93005; 93010; 96360; 99283; 99285-25; A9270-GY; J7030